=== PATIENT | male | born 1950 | race Caucasian/White ===

== ENCOUNTER 2021-05-22 07:17 | Outpatient (CLI) | payer MEDICARE, SELFPAY ==
--- NOTE | ~2021-05-22 | NM_ITS ---
EXAMINATION: NM bone scan whole body DATE: 05/22/2021 10:39 INDICATION: Left groin pain post open reduction internal fixation of a left hip fracture. TECHNIQUE: 25.8 mCi Tc-99m HDP was administered intravenously. Delayed whole-body scintigrams were o btained. COMPARISON: Bone scan dated 05/22/2019 no more recent relevant imaging at this institution. FINDINGS: Photopenic defects associated with bilateral total knee arthroplasties and a right total hip arthropl asty. More subtle photopenic defect associated with an intramedullary manpreet and interlocking femoral ne ck screw fixation at the proximal left femur. No associated abnormal bone uptake to suggest fracture or loosening. Lumbar levoscoliosis. Unchanged foci of increased uptake along the lumbar and lower tho racic spine most likely degenerative in etiology. At T11 and in the mid lumbar spine the activity ext ends horizontally across the vertebral body and could not exclude compression fractures. Given the pe rsistence over 2 years this is more likely related to degenerative disc disease. Additional likely de generative joint centered uptake at the base of the left thumb and bilateral shoulders, elbows, risks , ankles and mid feet. IMPRESSION: 1. No abnormal activity at the left hip to suggest fracture or other acute osseous abnormality. 2. Scattered mild joint centered uptake as well as unchanged uptake in the lumbar and lower thoracic spine most likely degenerative in etiology. Reviewed, dictated and finalized at location [facility]. IMPRESSION: 1. No abnormal activity at the left hip to suggest fracture or other acute osse ous abnormality. 2. Scattered mild joint centered uptake as well as unchanged uptake in the lumb ar and lower thoracic spine most likely degenerative in etiology.
== END 2021-05-22 07:18 | disposition home or self-care (01) ==
PROVIDERS: PCP Family Medicine; Visit Provider Orthopaedic Surgery
DX: M25.552 Pain in left hip (principal)
CPT/HCPCS: 78306; A9561

== ENCOUNTER 2021-05-30 12:26 | Outpatient (CLI) | payer MEDICARE, SELFPAY ==
--- NOTE | ~2021-05-30 | XR_ITS ---
EXAMINATION: XR lg joint inject/asp w image DATE: 05/30/2021 13:09 INDICATION: Left hip osteoarthritis with pain TECHNIQUE: A time-out was performed to verify the patient's name, date of , and procedure to b e performed. The procedure including the risks, benefits, and alternatives was discussed with the pat ient. Risks discussed included bleeding and infection. The patient understood the risks and agreed to proceed. The skin overlying the left hip joint was prepped and draped in usual sterile fashion. An esthetic was administered with 1% lidocaine subcutaneously. A 22 G needle was advanced under fluoros copic guidance into the joint. Injection of 1 mL of Omnipaque 240 confirmed intra-articular position of the needle. Subsequently, injectate consisting of 4 mL of a 3:1 mixture of 1% lidocaine: 80 mg/m L Depo-Medrol for a total dosage of 80 mg Depo-Medrol was instilled. Washout of contrast was seen con firming intra-articular administration. The needle was removed and the entry site was cleaned and fang ssed. There were no immediate complications. Fluoroscopy exposure time was 0.1 minutes. The total nu mber of images was 1. FINDINGS: Real-time fluoroscopy demonstrates the needle in the left hip joint. Patient's pain prior t o procedure:04/22. Patient's pain following the procedure: 11/23. IMPRESSION: 1. Successful left hip joint injection of local anesthetic and steroid with decrease in the patient's presenting pain. Reviewed, dictated and finalized at location [facility]. IMPRESSION: 1. Successful left hip joint injection of local anesthetic and steroid with dec rease in the patient's presenting pain.
== END 2021-05-30 12:27 | disposition home or self-care (01) ==
PROVIDERS: PCP Family Medicine; Visit Provider Orthopaedic Surgery
DX: M16.12 Unilateral primary osteoarthritis, left hip (principal)
CPT/HCPCS: 20610; 77002; J1040; Q9966

== ENCOUNTER 2021-06-06 02:04 | Day surgery (SDC) | payer MEDICARE, SELFPAY ==
[2021-05-26 14:50] VITALS: BMI 32.8
--- NOTE | 2021-06-05 13:31 | WPDANESEPPF ---
Anes - Initial Pre Proc Eval Procedure: Operation Date: 06/06/21 12:00 Proposed Procedures p Colonoscopy - Andrea Jones MD Date/Time: 06/05/21 13:31 Surgeon: Andrea Jones MD Pre Op Diagnosis: rectal bleed Patient Data Age: 70 Gender: M Height: 1.6 m Weight: 84.09 kg Allergies Allergy/AdvReac Type Severity Reaction Status Date / Time Sulfa (Sulfonamide Allergy Unknown Unknown Verified 06/06/21 11:13 Antibiotics) Home Medications Medication Instructions Recorded Confirmed Type calcium carbonate 600 mg calcium 600 mg PO BID 05/17/20 06/06/21 History (1,500 mg) tablet cholecalciferol (vitamin D3) 25 25 mcg PO BID cap 05/17/20 05/23/21 History mcg (1,000 unit) capsule topiramate 100 mg tablet 100 mg PO BID 05/17/20 06/06/21 History celecoxib 100 mg capsule 100 mg PO BID #180 cap 10/10/20 06/06/21 Rx gabapentin 300 mg capsule See Rx Instructions .ROUTE 04/28/21 06/06/21 Rx .COMPLEX #180 cap hydrocortisone 2.5 % topical cream 1 applic RECTAL DAILY PRN #30 g 05/23/21 06/06/21 Rx with perineal applicator Patient hx anesthesia problems: none Family hx anesthesia problems: none PMFSH Past Medical History Medical History (Updated 06/06/21 @ 11:22 by Andrea Jones MD) Arthritis BRBPR (bright red blood per rectum) History of seizure disorder Hyperlipidemia Loose stools Metal bone fixation hardware in place NATHANIEL on CPAP Osteoporosis Restless legs Surgical History Surgical History History of appendectomy History of back surgery History of bilateral knee replacement History of cholecystectomy History of hernia repair History of tonsillectomy History of total right hip replacement Family History Family History Mother Osteoporosis Social History Social History Second hand tobacco smoke exposure: No Alcohol intake: never Substance use: never Substance use type: does not use Living arrangements: with family Gender identity (if verbalized by the patient): Male Spiritual care concerns: No Agree to blood products: Yes Anes - Eval Final PreProcedure Day of Procedure 06/05/21 13:31 Patient weight: obese Heart: regular rate and rhythm Lungs: clear to auscultation and normal air movement Airway: Mallampati scale class II Neurological: alert and oriented Last oral intake: >/= 8 hours ASA classification: III Emergent: no Anesthetic plan: proceed Anesthesia type and monitoring: general GIVS and standard monitoring Informed Consent: The patient's anesthetic plan and its attendant risks and benefits were discussed with the patient/family/POA. Questions were solicited and answers provided to the satisfaction of the patient/family/POA.
[2021-06-06 11:14] VITALS: BP 140/81; PULSE 71; RESP 20; TEMP 36.4; O2SAT 100
[2021-06-06] MEDS: LACTATED RINGERS 1,000 ML 150 ML IV CONT (11:20)
--- NOTE | 2021-06-06 11:21 | WPDGICN ---
Assessment and Plan Assessment and plan (1) Family history of colon cancer in father: Code(s): Z80.0 - Family history of malignant neoplasm of digestive organs Status: Acute Assessment and Plan: Patient's father had colon cancer. For this reason screening colonoscopy is advised now on a 5 year intervals. (2) BRBPR (bright red blood per rectum): Code(s): K62.5 - Hemorrhage of anus and rectum Status: Acute Assessment and Plan: Patient has had occasional loose stools associated with bright red blood per rectum differential diagnosis is broad but includes hemorrhoids and polyps. Plan is for surveillance colonoscopy at this time. High-fiber diet is otherwise advised. GI Consult Note Consult date/time: 06/06/21 11:21 HPI: Aly Cervantes is a 70 year old male Presents for screening colonoscopy. Patient's father has a history of colon cancer. Patient reports that he has had a intermittently had bright red blood per rectum. This prompted him to seek colonoscopy at this time. He denies any abdominal pain. Bleeding occurs intermittently. He does occasionally have loose stools associated with this. Review of Systems Review of Systems: All systems reviewed & are unremarkable except as noted in HPI and below PMFSH Past Medical History Medical History (Updated 06/06/21 @ 11:22 by Andrea Jones MD) Arthritis BRBPR (bright red blood per rectum) History of seizure disorder Hyperlipidemia Loose stools Metal bone fixation hardware in place NATHANIEL on CPAP Osteoporosis Restless legs Surgical History Surgical History History of appendectomy History of back surgery History of bilateral knee replacement History of cholecystectomy History of hernia repair History of tonsillectomy History of total right hip replacement Family History Family History Mother Osteoporosis Social History Social History Second hand tobacco smoke exposure: No Alcohol intake: never Substance use: never Substance use type: does not use Living arrangements: with family Gender identity (if verbalized by the patient): Male Spiritual care concerns: No Agree to blood products: Yes Meds Home Medications and Allergies Home Medications Medication Instructions Recorded Confirmed Type calcium carbonate 600 mg calcium 600 mg PO BID 05/17/20 06/06/21 History (1,500 mg) tablet cholecalciferol (vitamin D3) 25 25 mcg PO BID cap 05/17/20 05/23/21 History mcg (1,000 unit) capsule topiramate 100 mg tablet 100 mg PO BID 05/17/20 06/06/21 History celecoxib 100 mg capsule 100 mg PO BID #180 cap 10/10/20 06/06/21 Rx gabapentin 300 mg capsule See Rx Instructions .ROUTE 04/28/21 06/06/21 Rx .COMPLEX #180 cap hydrocortisone 2.5 % topical cream 1 applic RECTAL DAILY PRN #30 g 05/23/21 06/06/21 Rx with perineal applicator Allergies Allergy/AdvReac Type Severity Reaction Status Date / Time Sulfa (Sulfonamide Allergy Unknown Unknown Verified 06/06/21 11:13 Antibiotics) Vital Signs Vital Signs - 24 hr 06/06/21 11:14 Temperature 97.6 F Pulse Rate 71 Respiratory Rate 20 Blood Pressure 140/81 Pulse Oximetry 100 Exam Narrative: Physical exam reveals patient be alert. Vital signs stable. HEENT exam is unremarkable. Lungs are clear to auscultation and percussion. Heart is without murmur or extra sounds. Abdominal exam bowel sounds are present soft nontender with no organomegaly. Digital external rectal exam is normal.
[2021-06-06 12:42] VITALS: BP 78/49; PULSE 61; RESP 16; O2SAT 97
[2021-06-06 12:52] VITALS: BP 92/53; PULSE 56; RESP 28; O2SAT 98
[2021-06-06 13:02] VITALS: BP 133/84; PULSE 54; RESP 18; O2SAT 100
== END 2021-06-06 13:21 | disposition home or self-care (01) ==
PROVIDERS: PCP Family Medicine; Visit Provider Internal Medicine Gastroenterology
PROC: 0DJD8ZZ Inspection of Lower Intestinal Tract, Via Natural or Artificial Opening Endoscopic (ICD-10-PCS; CPT 45378; principal; 2021-06-06 12:00)
DX: K62.5 Hemorrhage of anus and rectum (principal); Z80.0 Family history of malignant neoplasm of digestive organs; K64.8 Other hemorrhoids; K57.30 Diverticulosis of large intestine without perforation or abscess without bleeding; M19.90 Unspecified osteoarthritis, unspecified site; E78.5 Hyperlipidemia, unspecified; G47.33 Obstructive sleep apnea (adult) (pediatric); M81.0 Age-related osteoporosis without current pathological fracture; E66.9 Obesity, unspecified; Z68.31 Body mass index [BMI] 31.0-31.9, adult
CPT/HCPCS: 45378; J2001; J2704; J7120

== ENCOUNTER 2021-11-30 09:26 | Outpatient (CLI) | payer MEDICARE, SELFPAY ==
--- NOTE | ~2021-11-30 | XR_ITS ---
XR abdomen obstructive series DATE: 11/30/2021 09:44 INDICATION: Abdominal pain, burning in abdomen TECHNIQUE: Supine and upright AP views COMPARISON: 12/17/2012 CT abdomen pelvis FINDINGS: Surgical clips, right upper quadrant, consistent with cholecystectomy. There is a prominent of fecal material in the colon. No bowel obstruction or intraperitoneal free air is detected. Calcifications overlie the kidneys suggesting bilateral nephrolithiasis. Status post right hip arthroplasty. Compression screw and manpreet of proximal left femur. There is postoperative change from lumbar laminectomy. Status post vertebroplasty at T12 and L5. Ther e is scoliosis and severe degenerative disc disease of the lumbar spine and fusion at the L3-4 inters pace. IMPRESSION: Status post cholecystectomy Probable bilateral nephrolithiasis Prominent amount fecal material in the colon; no bowel obstruction or free air Scoliosis and severe degenerative disc disease of the lumbar spine Vertebroplasty T12 and L5 Right hip arthroplasty Compression screw and manpreet of proximal left femur Reviewed, dictated and finalized at [facility]. Reviewed, dictated and finalized at location [facility]. 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
== END 2021-11-30 09:27 | disposition home or self-care (01) ==
LOC: ANHIMG 09:32
PROVIDERS: PCP Family Medicine; Visit Provider Family Medicine
DX: R10.9 Unspecified abdominal pain (principal); Z90.49 Acquired absence of other specified parts of digestive tract; M51.36 Other intervertebral disc degeneration, lumbar region; M41.86 Other forms of scoliosis, lumbar region; Z98.890 Other specified postprocedural states; Z96.641 Presence of right artificial hip joint
CPT/HCPCS: 74019

== ENCOUNTER 2022-04-10 10:12 | Emergency (ER) | payer MEDICARE, SELFPAY ==
--- NOTE | ~2022-04-10 | XR_ITS ---
XR femur LT min 2V DATE: 04/10/2022 11:04 INDICATION: Pain above-knee. No recent injury. TECHNIQUE: AP and lateral views of left femur COMPARISON: 08/27/2015 left knee 07/26/2010 left hip FINDINGS: Compression screw and intramedullary manpreet of the left femur for old intertrochanteric hip fr acture. There is chronic fracture of a distal femoral manpreet through screw. Osteopenia. There is moderate osteoarthritis at the left hip joint. No recent fracture, dislocation, periosteal reaction or bone destruction of the left femur. Status post left total knee arthroplasty with patellar resurfacing. Status post right total hip arthroplasty. IMPRESSION: No recent fracture or dislocation Status post ORIF left intertrochanteric hip fracture Status post left total knee arthroplasty Status post right total hip arthroplasty Reviewed, dictated and finalized at location [facility].
--- NOTE | ~2022-04-10 | XR_ITS ---
XR knee LT 2V DATE: 04/10/2022 11:04 INDICATION: Pain above-knee TECHNIQUE: AP and lateral views of left knee COMPARISON: 08/27/2015 left knee FINDINGS: An intramedullary manpreet of the femoral shaft is again noted, with chronically fractured dista l transverse through screw. Status post left total knee arthroplasty with patellar resurfacing. No fracture or dislocation or joint effusion. There is osteopenia. No recent periosteal reaction or evidence of bone destruction. IMPRESSION: Intramedullary manpreet with femoral shaft Status post left total knee arthroplasty Osteopenia No fracture or dislocation or joint effusion Reviewed, dictated and finalized at location [facility].
[2022-04-10 10:18] VITALS: BP 141/77; PULSE 73; RESP 16; TEMP 36.7; O2SAT 100
--- NOTE | 2022-04-10 10:47 | ED.LOWEXIN ---
HPI - Extremity Injury (Lower) General Chief Complaint: Extremity Injury, Lower Stated Complaint: needs xray Time Seen by Provider: 04/10/22 10:34 History of Present Illness HPI Narrative: Patient is a 71-year-old male with a history of numerous arthroplasties here for evaluation of left hip and left knee pain over the past month. Patient describes the pain as an aching pain over his left lateral hip and also in his left groin. The pain is there all the time but is worse when he is up and moving around. Reports only transient relief with celebrex. He does have a history of trochanteric bursitis for which he follows with Dr. Palacios, states his pain feels very similar. He has a follow-up appointment with Dr. Palacios next week and he tells me he was told to come to the ED for XR of the hip and knee. Related Data Home Medications Medication Instructions Recorded Confirmed calcium carbonate 600 mg calcium 600 mg PO BID 05/17/20 11/29/21 (1,500 mg) tablet (Calcium) cholecalciferol (vitamin D3) 25 25 mcg PO BID 05/17/20 11/29/21 mcg (1,000 unit) capsule topiramate 100 mg tablet 100 mg PO BID 05/17/20 11/29/21 Allergies Allergy/AdvReac Type Severity Reaction Status Date / Time Sulfa (Sulfonamide Allergy Unknown Unknown Verified 04/10/22 10:22 Antibiotics) Review of Systems Review of Systems: Gen: Denies fevers or chills Eyes: Denies eye pain or visual change ENT: Denies congestion Respiratory: Denies shortness of breath or cough CV: Denies chest pain or palpitations GI: Denies abdominal pain nausea, emesis or diarrhea denies burning, urgency, frequency or hematuria Musculoskeletal: Reports right hip and knee pain. Reports chronic back pain. Denies muscle pain Neuro: Denies numbness, tingling, weakness or focal weakness Skin: Denies rash Except as documented, all other systems reviewed and negative PMFSH Past Medical History Medical History Arthritis BRBPR (bright red blood per rectum) Encounter for immunization History of seizure disorder Hyperlipidemia Loose stools Metal bone fixation hardware in place NATHANIEL on CPAP Osteoporosis Restless legs Surgical History Surgical History History of appendectomy History of back surgery History of bilateral knee replacement History of brain surgery History of cholecystectomy History of hernia repair History of tonsillectomy History of total right hip replacement Family History Family History Mother Osteoporosis Social History Social History Second hand tobacco smoke exposure: No Alcohol intake: never Substance use: never Substance use type: does not use Gender identity (if verbalized by the patient): Male Sexual Orientation (if Verbalized by the Patient): Straight or Heterosexual Spiritual care concerns: No Agree to blood products: Yes Exam Narrative: APPEARANCE: Well appearing, no pain in distress, well-nourished. Head: Normocephalic and atraumatic. EYES: PERRLA/EOMI, conjunctivae clear NOSE: No nasal drainage EARS: External ear normal in appearance THROAT: Oropharynx is clear. Mucous membranes are moist. NECK: Supple. No adenopathy, no masses. RESPIRATORY: Airway patent, respirations nonlabored. Clear to auscultation bilaterally, no rales, rhonchi, wheezing. CARDIOVASCULAR: 2+ DP/PT pulses bilaterally. Regular rate and rhythm without murmurs, rubs, or gallops. ABDOMINAL: Normoactive bowel sounds. Soft, nontender, nondistended. No rebound tenderness or guarding. MUSCULOSKELETAL: No bony tenderness to palpation along left hip bone or left patella. No tenderness over left groin. No pain with passive range of motion, notes pain in hip with active flexion of hip. Sensation intact over entire RLE. Anterior and pos
[2022-04-10] MEDS: ACETAMINOPHEN 500 MG TABLET 1000 MG PO (12:05)
[2022-04-10 12:36] VITALS: BP 129/88; PULSE 61; RESP 16; O2SAT 100
== END 2022-04-10 12:38 | disposition home or self-care (01) ==
PROVIDERS: Emergency Provider Emergency Medicine; PCP Family Medicine
DX: M71.9 Bursopathy, unspecified (principal); G40.909 Epilepsy, unspecified, not intractable, without status epilepticus; E78.5 Hyperlipidemia, unspecified; G47.33 Obstructive sleep apnea (adult) (pediatric); M81.0 Age-related osteoporosis without current pathological fracture; M19.90 Unspecified osteoarthritis, unspecified site; G25.81 Restless legs syndrome; Z96.653 Presence of artificial knee joint, bilateral; Z96.641 Presence of right artificial hip joint; M85.88 Other specified disorders of bone density and structure, other site
CPT/HCPCS: 73552; 73560; 99284; A9270

== ENCOUNTER 2022-04-14 14:12 | Emergency (ER) | payer MEDICARE, SELFPAY ==
[2022-04-14 14:21] VITALS: BP 177/97; PULSE 78; RESP 18; TEMP 36.9; O2SAT 99
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
[2022-04-14 14:42] LABS: Basophils Percent Auto 0.4 % (0.2-1.2); Eosinophils Percent Auto 0.7 % (0-4.4); Hematocrit 43.3 % (42.0-52.0); Hemoglobin 14.3 g/dL (14.0-18.0); Immature Granulocyte Absolute 0.01 K/mm3 (0.00-0.031); Immature Granulocyte Percent A 0.2 % (0-0.5); Lymphocytes Absolute Auto 0.97 K/mm3 (0.9-3.2); Lymphocytes Percent Auto 21.4 % (18.3-44.2); Mean Corpuscular Hemoglobin 31.8 pg (26-34); Mean Corpuscular Volume 96.2 fl (80-100); Mean Platelet Volume 9.3 fl (7.4-10.4); Monocytes Absolute Auto 0.2 K/mm3 (0.1-0.6); Monocytes Percent Auto 4.6 % (2.6-8.5); Neutrophils Absolute Auto 3.3 K/mm3 (1.3-6.7); Neutrophils Percent Auto 72.7 % (45.5-73.1); Platelet Count Result 179 k/mm3 (150-375); White Blood Count 4.5 K/mm3 (4.5-10.0)
[2022-04-14 14:50] LABS: Ethanol < 10 mg/dL (<10)
[2022-04-14 14:51] LABS: Acetaminophen < 10 ug/mL (10-30); Salicylate < 1.0 mg/dL (2-20)
[2022-04-14 14:54] LABS: Alanine Aminotransferase 21 U/L (6-50); Albumin Level 4.8 g/dL (3.5-5.1); Alkaline Phosphatase 56 U/L (38-126); Anion Gap 10 mmol/L (8-16); Aspartate Amino Transferase 20 U/L (17-59); Bilirubin,Total 0.8 mg/dL (0.2-1.3); Blood Urea Nitrogen 14 mg/dL (9-20); Calcium 9.5 mg/dL (8.4-10.2); Carbon Dioxide 22 mmol/L (22-30); Chloride 110 mmol/L (98-107); Estimated CRCL calculation 54 ml/min; Estimated Glomerular Filt Rate > 60; Glucose 95 mg/dL (65-110); Potassium 3.5 mmol/L (3.4-5.0); Sodium 142 mmol/L (137-145)
[2022-04-14 14:57] LABS: Appearance Urine Clear (Clear); Bilirubin Urine Negative (Negative); Blood Urine Negative (Negative); Color Urine Yellow (Yellow); Glucose Urine UA Negative (Negative); Ketones Urine Negative (Negative); Leukocyte Esterase Ur Negative LEU/UL (Negative); Nitrate Urine Negative (Negative); Protein Urine Negative (Negative); Specific Grav Ur 1.015 (1.001-1.035); Urobilinogen Urine 0.2 mg/dL (<2.0); pH Urine 7.5 (5.0-9.0)
[2022-04-14 15:11] LABS: Amphetamine Screen Urine Negative (Negative); Barbiturate Screen Urine Negative (Negative); Benzodiazepines Screen Urine Negative (Negative); Cannabinoid Screen Urine Negative (Negative); Cocaine Screen Urine Negative (Negative); Methadone Screen Urine Negative (Negative); Opiate Screen Urine Negative (Negative); Phencyclidine Screen Urine Negative (Negative)
[2022-04-14 15:25] LABS: Mucus Urine Rare /lpf; RBC Urine 0-2 /hpf (0-2); Squamous Epithelial Cell Urine Rare /hpf (Few); WBC Urine 0-3 /hpf
[2022-04-14 15:26] LABS: Add Urine Microscopic? NO
[2022-04-14] MEDS: HYDROcodone/acetaminophen (*CRX) 10-325 MG TABLET 1 TAB PO (15:28)
[2022-04-14] MEDS: diazePAM (*CRX) 5 MG TABLET PO (15:28)
[2022-04-14 15:32] LABS: SARS-CoV-2 RNA PCR Negative
[2022-04-14] MEDS: KETOROLAC (*BKC) 60 MG/2 ML VIAL IM (16:59)
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
--- NOTE | 2022-04-14 19:50 | PC.NURSE ---
Pts family took pts belongings including clothes, shoes, medications, and wallet.
[2022-04-14 22:41] VITALS: BP 132/78; PULSE 81; RESP 16; TEMP 36.6; O2SAT 97
== END 2022-04-14 22:41 | disposition home or self-care (01) ==
PROVIDERS: Emergency Provider Emergency Medicine; PCP Family Medicine
DX: R45.851 Suicidal ideations (principal); M54.50 Low back pain, unspecified; G89.29 Other chronic pain; Z20.822 Contact with and (suspected) exposure to COVID-19; G40.909 Epilepsy, unspecified, not intractable, without status epilepticus; E78.5 Hyperlipidemia, unspecified; M81.0 Age-related osteoporosis without current pathological fracture; G47.33 Obstructive sleep apnea (adult) (pediatric); G25.81 Restless legs syndrome; M19.90 Unspecified osteoarthritis, unspecified site; Z96.653 Presence of artificial knee joint, bilateral; Z96.641 Presence of right artificial hip joint
CPT/HCPCS: 36415; 80053; 80307; 81003; 84443; 85025; 96372; 99284; A9270; C9803; J1885; U0003; U0005

== ENCOUNTER 2022-10-04 16:47 | Observation (INO) | payer MEDICARE, SELFPAY ==
--- NOTE | ~2022-10-04 | CT_ITS ---
EXAMINATION: CT abdomen pelvis w con DATE: 10/04/2022 18:07 INDICATION: Abdominal pain, diarrhea with blood for one week TECHNIQUE: Computed tomography (CT) of the abdomen and pelvis was performed with 100 CC Omnipaque 350 intravenous contrast. Automated exposure control and iterative reconstruction technique were employe d. Exam dose: 698.01 mGy-cm total exam DLP. COMPARISON: 12/17/2012 CT abdomen pelvis FINDINGS: Bilateral lower lobe dependent atelectasis. Heart size is within normal limits. Coronary artery calcification. Trace pericardial fluid. No pleura l effusion. Status post cholecystectomy. No hepatic, splenic, pancreatic, adrenal space-occupying mass lesion. Occasional bilateral small renal cysts. Bilateral nonobstructive nephrolithiasis. No ureteral calculus or hydroureteronephrosis. The urinary bladder is unremarkable. There is prostate enlargement. Normal caliber and some tortuosity of the abdominal aorta. No intraperitoneal or retroperitoneal or pelvic mass lesion or adenopathy or ascites. Diffuse prominent thickening of the wall of the rectum and colon, particularly the sigmoid and descen ding colon. Diffusion diagnosis includes inflammatory bowel disease such as ulcerative colitis versus infectious or unlikely ischemic colitis. The celiac, superior mesenteric and inferior mesenteric art eries appear widely patent, without atherosclerotic calcification. Small fat-containing umbilical hernia. Extensive degenerative changes of the thoracic and lumbar spine with multiple compression fracture de formities including T11, T12, L1, L2, L5, with vertebroplasty T12 and L5. There is fusion at the L3 and L4 vertebral bodies. Multilevel degenerative disc disease of the lumbar spine. Status post right total hip arthroplasty. Compression screw and nail in proximal left femur. IMPRESSION: Colitis, involving particularly the sigmoid and descending colon; diffusion diagnosis in cludes primarily inflammatory or infectious colitis. Bilateral nonobstructive nephrolithiasis Occasional bilateral small renal cysts Status post cholecystectomy Multiple compression fractures of thoracic and lumbar spine, status post vertebroplasty at T12 and L5 Right total hip replacement, postoperative change of proximal left femur Reviewed, dictated and finalized at [facility] Reviewed, dictated and finalized at [facility] [employer] IMPRESSION: Colitis, involving particularly the sigmoid and descending colon; diffusion diagnosis includes primarily inflammatory or infectious colitis. Bilateral nonobstructive nephrolithiasis Occasional bilateral small renal cysts Status post cholecystectomy Multiple compression fractures of thoracic and lumbar spine, status post verteb roplasty at T12 and L5 Right total hip replacement, postoperative change of proximal left femur
[2022-10-04 17:08] VITALS: BP 136/85; RESP 18; O2SAT 100
[2022-10-04 17:09] VITALS: BP 136/85; PULSE 99; RESP 18; TEMP 37.5; O2SAT 97
[2022-10-04] MEDS: SODIUM CHLORIDE 0.9% IV 1,000 ML 999 ML IV CONT (17:22)
[2022-10-04 17:30] LABS: Hematocrit 36.8 % (42.0-52.0); Hemoglobin 12.1 g/dL (14.0-18.0); Mean Corpuscular HGB Conc 32.9 g/dl (32-36); Mean Corpuscular Hemoglobin 30.5 pg (26-34); Mean Corpuscular Volume 92.7 fl (80-100); Mean Platelet Volume 8.6 fl (7.4-10.4); Platelet Count Result 225 k/mm3 (150-375); Red Blood Count 3.97 M/mm3 (4.6-6.20); Red Cell Distribution Width 12.8 % (11.5-14.5); White Blood Count 4.8 K/mm3 (4.5-10.0)
[2022-10-04 17:40] LABS: Lactic Acid Reflex 1.4 mmol/L (0.7-2.0)
[2022-10-04 17:44] LABS: Alanine Aminotransferase 24 U/L (6-50); Albumin Level 3.4 g/dL (3.5-5.1); Alkaline Phosphatase 68 U/L (38-126); Anion Gap 6 mmol/L (8-16); Aspartate Amino Transferase 24 U/L (17-59); Bilirubin,Total 0.6 mg/dL (0.2-1.3); Blood Urea Nitrogen 18 mg/dL (9-20); Calcium 9.1 mg/dL (8.4-10.2); Carbon Dioxide 24 mmol/L (22-30); Chloride 100 mmol/L (98-107); Estimated CRCL calculation 73 ml/min; Estimated Glomerular Filt Rate > 60; Glucose 121 mg/dL (65-110); Lipase 19 U/L (23-300); Potassium 3.8 mmol/L (3.4-5.0); Sodium 130 mmol/L (137-145)
[2022-10-04 17:45] LABS: INR 1.2; Prothrombin Time 14.8 Seconds (11.1-14.7)
[2022-10-04 17:46] LABS: Partial Thromboplastin Time 27.6 SECONDS (22.3-36.8)
[2022-10-04 17:59] LABS: Neutrophils Percent Manual 41 % (46-73); Total Cells Counted 100
[2022-10-04 18:00] VITALS: BP 136/85; PULSE 98; RESP 18; O2SAT 98
[2022-10-04 18:00] LABS: Band Neutrophils Percent 20 % (0-6); Eosinophils Absolute Manual 0.04 K/mm3 (0.02-0.5); Eosinophils Percent Manual 1 % (0-4); Lymphocytes Absolute Manual 0.67 K/mm3 (1.1-4.5); Lymphocytes Percent Manual 14 % (18-44); Metamyelocytes Percent 2 %; Monocytes Absolute Manual 1.05 K/mm3 (0.1-0.90); Monocytes Percent Manual 22 % (3-9); Neutrophils Absolute Manual 2.92 K/mm3 (1.3-6.7)
[2022-10-04 18:01] LABS: Ovalocytes 1+ (NORMAL); Platelet Estimate Adequate (Adequate); Schistocytes None Seen (NORMAL)
--- NOTE | 2022-10-04 19:55 | ED.NAVMDI ---
HPI - Nausea/Vomiting/Diarrhea General Chief complaint: Nausea/Vomiting/Diarrhea Stated complaint: RECTAL BLEED Source: RN notes reviewed History of Present Illness HPI Narrative: Patient presents emergency department from home for diarrhea. Patient states he has been having diarrhea for the past 1 week. He states that he is having bowel movements approximately every 2 hours states is associated with blood in his stool that is dark red in color. He states he does have lower abdominal pain with the symptoms described as cramping in nature. He denies any fevers or chills he denies any nausea or vomiting. States he is not on any blood thinners. He denies any recent antibiotic use or foreign travel Related Data Home Medications Medication Instructions Recorded Confirmed calcium carbonate 600 mg calcium 600 mg PO BID 05/17/20 06/07/22 (1,500 mg) tablet (Calcium) cholecalciferol (vitamin D3) 25 25 mcg PO BID 05/17/20 06/07/22 mcg (1,000 unit) capsule topiramate 100 mg tablet 100 mg PO BID 05/17/20 06/07/22 Allergies Allergy/AdvReac Type Severity Reaction Status Date / Time Sulfa (Sulfonamide Allergy Unknown Unknown Verified 10/04/22 17:10 Antibiotics) Review of Systems Review of Systems: Gen.: Denies fevers or chills ENT: Denies congestion Respiratory: Denies shortness of breath or cough CV: Denies chest pain or palpitations GI: See HPI denies burning, urgency, frequency or hematuria Musculoskeletal: Denies back pain or muscle pain Neuro: Denies numbness, tingling, weakness or focal weakness Skin: Denies rash Except as documented, all other systems reviewed and negative [facility] Past Medical History Medical History Arthritis BRBPR (bright red blood per rectum) Encounter for immunization History of seizure disorder Hyperlipidemia Loose stools Metal bone fixation hardware in place NATHANIEL on CPAP Osteoporosis Restless legs Surgical History Surgical History History of appendectomy History of back surgery History of bilateral knee replacement History of brain surgery History of cholecystectomy History of hernia repair History of tonsillectomy History of total right hip replacement Family History Family History Mother Osteoporosis Social History Social History Smoking status: Never smoker Second hand tobacco smoke exposure: No Alcohol intake: never Substance use: never Substance use type: does not use Gender identity (if verbalized by the patient): Male Sexual Orientation (if Verbalized by the Patient): Straight or Heterosexual Spiritual care concerns: No Agree to blood products: Yes Exam Narrative: APPEARANCE: No acute distress, nontoxic, resting in bed HEENT: Normocephalic, atraumatic, OMM RESPIRATORY: No respiratory distress, clear to auscultation bilaterally with no rhonchi wheezing or rales CARDIOVASCULAR: RRR s murmur ABDOMINAL: Soft nondistended tender to palpation right lower quadrant and left lower quadrant no tenderness in right upper quadrant left upper quadrant no rebound or guarding Rectal: No fissures large hemorrhoid present reddish-brown stool that is Hemoccult positive MUSCULOSKELETAl: Moves all extremities. No clubbing, cyanosis or edema. NEURO: Awake and alert. Following commands, speech normal, no focal deficits SKIN:: Warm, dry. Normal Color PSYCHIATRIC: Normal affect/mood Course Course Emergency Course: discussed with Dr. Estrada presentation work-up agrees with consult recommends patient started on Zosyn Discussed with Dr. Jarrell agrees with admission Discussed with patient and family results of workup and diagnosis. Discussed need for admission. Patient and family understand and agree to current treatment plan Vi
[2022-10-04 20:51] LABS: Influenza A QL RT-PCR Negative (Negative); Influenza B QL RT-PCR Negative (Negative); SARS-CoV-2 RNA PCR Negative
--- NOTE | 2022-10-04 21:26 | PM.IMHP ---
H&P: HPI History of Present Illness Date/Time: 10/04/22 21:26 Chief Complaint: Diarrhea Narrative: 71-year-old male with past medical history of osteoporosis, multiple compression fractures, spinal stenosis and seizure disorder who presented to the ER with diarrhea. The patient reported that he started having diarrhea approximately 1 week ago. The initially diarrhea was brown and watery but as time has progressed she has noticed some blood in the diarrhea. He is frequently incontinent of stools because he can not get up and move around himself due to his spinal surgery in June. He is on Celebrex at home but not on any blood thinners. He has not had any recent antibiotic therapy but has been in out of various rehab institutions. He reports he has not been back home since his spinal surgery and is currently in [facility] rehab. He reports some somewhat point tenderness in his right lower abdomen. He is having bowel movements approximately every 2 hours regardless of whether he has eaten anything or not. He has been having chills for the last several days but denies having any recorded fevers. He denies any rectal pain or wounds. He had stool studies obtained at the senior living with cultures that are pending. He denies any associated nausea or vomiting but has had some decreased appetite. On exam the patient did seem to have a palpable bladder. He denies any sensation of incomplete bladder emptying and had recent urodynamic studies done that were reportedly normal. He denies any dysuria or hematuria. He denies any known ill contacts. He does report a sensation of globus when he swallows and this correlates to his palpable lymph noted his right anterior cervical chain that is tender to palpation. He denies any oral ulcers or dental caries. He reports that the sensation has been ongoing for a month or so. He had his colonoscopy in May [address] Jones. The patient reports that he has had chronic lower extremity swelling for the last couple of months that is worse after he has been sitting up in his wheelchair all day. Usually resolves or improves once he goes to bed. For the most part his legs hanging down while he is up in the wheelchair. He denies any orthopnea, paroxysmal nocturnal dyspnea or palpitations. He denies history of CHF. The patient received Imodium at the senior living which did not seem to help with frequency of his stools. Hemoglobin at the senior living was 11.5 and white count was 3.7 10/03/2022. He reports that he can not feel his feet and move his feet and ankles but is not strong enough to lift his legs from the bed. He does have a history of seizure disorder but reports that he has not had a seizure since March 23, 2014 when he had brain surgery to resect an area of scar tissue. Review of Systems Review of Systems: 12 systems were reviewed with pertinent positives and negatives per HPI. Except as documented in the HPI, all other systems were reviewed and are negative. [facility] Past Medical History Medical History (Updated 10/04/22 @ 21:38 by Annette Jarrell DO) Arthritis ED (erectile dysfunction) of organic origin RAYNA (generalized anxiety disorder) History of seizure disorder Following meningitis as a child Hyperlipidemia Metal bone fixation hardware in place NATHANIEL on CPAP Osteoporosis Restless legs Surgical History Surgical History (Updated 10/04/22 @ 21:36 by Annette Jarrell DO) History of appendectomy History of back surgery History of bilateral knee replacement (~2000) History of brain surgery History of cholecystectomy (~1987) History of hernia repair History of repair of congenital atrial septal defect (ASD) History of sinus surgery (~1994) History of tonsillectomy History of total right hip replacement S/P patent foramen ovale closure Status post lumbar spine surgery for decompression of spinal cord Status post open reduction with internal fixation of fracture (201
--- NOTE | 2022-10-05 00:01 | ADMGEN ---
This patient, Aly Cervantes, was admitted to Medical Room 250-01. Patient/family oriented to hospital policies and general routines including ID bracelet, bed and alarms, visiting hours, pain management, procedures, bathroom and other care routines, personal items, smoking policy, room service/diet, and visiting hours. Information on how to activate the Rapid Response Team has been discussed. Patient/Family are encouraged to report perceived risks to care and to ask questions if they do not understand what they are told or what they should do.
[2022-10-05 00:03] VITALS: BP 120/70; PULSE 90; RESP 22; TEMP 36.4; O2SAT 100; BMI 31.6
[2022-10-05] MEDS: SODIUM CHLORIDE 0.9% IV 1,000 ML 100 ML IV CONT ×3 (00:14→21:59)
[2022-10-05 00:40] LABS: Hematocrit 35.6 % (42.0-52.0); Hemoglobin 11.6 g/dL (14.0-18.0)
[2022-10-05] MEDS: oxyCODONE HCL (*CRX) 5 MG TAB IR 10 MG PO ×3 (01:44→20:56)
[2022-10-05] MEDS: GABAPENTIN 300 MG CAPSULE PO ×2 (01:44→20:56)
[2022-10-05 06:00] VITALS: BP 114/70; PULSE 87; RESP 20; TEMP 36.5; O2SAT 99
[2022-10-05 06:13] LABS: Hematocrit 33.8 % (42.0-52.0); Mean Corpuscular HGB Conc 32.5 g/dl (32-36); Mean Corpuscular Hemoglobin 31.3 pg (26-34); Mean Platelet Volume 8.9 fl (7.4-10.4); Platelet Count Result 207 k/mm3 (150-375); Red Blood Count 3.52 M/mm3 (4.6-6.20); Red Cell Distribution Width 12.9 % (11.5-14.5); White Blood Count 5.8 K/mm3 (4.5-10.0)
[2022-10-05 06:41] LABS: Alanine Aminotransferase 19 U/L (6-50); Albumin Level 2.7 g/dL (3.5-5.1); Alkaline Phosphatase 67 U/L (38-126); Anion Gap 5 mmol/L (8-16); Aspartate Amino Transferase 13 U/L (17-59); Bilirubin,Total 0.3 mg/dL (0.2-1.3); Blood Urea Nitrogen 12 mg/dL (9-20); Calcium 8.4 mg/dL (8.4-10.2); Carbon Dioxide 23 mmol/L (22-30); Chloride 104 mmol/L (98-107); Estimated CRCL calculation 66 ml/min; Estimated Glomerular Filt Rate > 60; Glucose 89 mg/dL (65-110); Potassium 3.4 mmol/L (3.4-5.0); Sodium 132 mmol/L (137-145)
--- NOTE | 2022-10-05 07:38 | PM.IMPN ---
Progress Note: A&P Assessment and Plan (1) Colitis: Code(s): K52.9 - Noninfective gastroenteritis and colitis, unspecified Status: Acute Assessment and Plan: Patient presented with blood in his stools and diarrhea. CT revealed colitis -patient white blood cell count normal but does have bandemia -continue to monitor CBC and BMP -patient started on Zosyn -GI consulted -NPO diet -stool cultures ordered and waiting collection (2) GI bleed: Qualifiers: GI bleed type/associated pathology: unspecified gastrointestinal hemorrhage type Qualified Code(s): K92.2 - Gastrointestinal hemorrhage, unspecified Code(s): K92.2 - Gastrointestinal hemorrhage, unspecified Status: Acute Assessment and Plan: -GI on board -normal colonoscopy in May 2021 -admitted with a hemoglobin of 12.1, today hemoglobin 11 -continue to monitor H&H (3) NATHANIEL on CPAP: Code(s): G47.33 - Obstructive sleep apnea (adult) (pediatric); Z99.89 - Dependence on other enabling machines and devices Status: Acute Assessment and Plan: Continue home CPAP Time Spent With Patient Time with patient: Greater than 35 minutes Subjective Date/time seen: 10/05/22 07:38 Interval history: 71-year-old with history of osteoporosis and seizure disorder. Patient arrived to the ER due to having diarrhea and blood in stool for 1 week. Patient states that diarrhea is constant and that he had tried Imodium without success. Patient is still currently having diarrhea although not having full bowel movements making it difficult to obtain stool sample. Patient denies fever, nausea, vomiting, dizziness, visual changes, chest pain, shortness a breath. States that his only symptom is diarrhea. Review of Systems Review of Systems: All systems reviewed & are unremarkable except as noted in HPI and below Exam Narrative: GENERAL: Comfortable, no acute distress HENMT: moist mucous membranes EYES: EOM intact b/l NECK: no lymphadenopathy RESPIRATORY: clear to auscultation CARDIO: RRR GI: soft, nontender, hyperactive bowel sounds SKIN: no rashes EXTREMITIES: no edema, redness or tenderness Objective Data Vital Signs Vital Signs: Vital Signs - 24 hr 10/04/22 17:09 10/04/22 17:08 10/04/22 18:00 Temperature 99.5 F Pulse Rate 99 98 Respiratory Rate 18 18 18 Blood Pressure 136/85 136/85 136/85 Pulse Oximetry 97 100 98 Oxygen Delivery 10/05/22 00:03 10/05/22 01:01 10/05/22 06:00 Temperature 97.6 F 97.7 F Pulse Rate 90 87 Respiratory Rate 22 H 20 Blood Pressure 120/70 114/70 Pulse Oximetry 100 99 Oxygen Delivery Room Air Intake/Output Intake/Output: Intake & Output 10/02/22 10/03/22 10/04/22 10/05/22 23:59 23:59 23:59 23:59 Intake Total 1050 Output Total 200 Balance 1050 -200 Meds/Results Medications: Active Medications Generic Name Dose Route Start Last Admin Trade Name Freq PRN Reason Stop Dose Admin Calcium Carbonate 500 mg 10/05/22 09:00 Calcium Carbonate (Oscal) 500 Mg Tablet PO BID ALICE Colestipol HCl 1 gm 10/05/22 10:00 Colestipol Hcl 1 Gm Tablet PO 1000,1800 ALICE Duloxetine HCl 60 mg 10/05/22 09:00 Duloxetine Hcl 60 Mg Capsule.Dr PO DAILY ALICE Gabapentin 300 mg 10/05/22 01:15 10/05/22 01:44 Gabapentin 300 Mg Capsule PO 300 mg Q12HR ALICE Administration Piperacillin/Tazobactam/Dextrose 3.375 gm in 50 mls @ 100 mls/hr 10/05/22 05:00 10/05/22 04:37 Zosyn 3.375 Gm/D5w 50ml Pm IVPB 100 mls/hr Q6HR ALICE Administration Sodium Chloride 1,000 mls @ 100 mls/hr 10/04/22 20:10 10/05/22 00:14 Normal Saline Iv IV CONT 100 mls/hr .Q10H ALICE Administration Oxycodone HCl 10 mg 10/05/22 01:12 10/05/22 01:44 Oxycodone Hcl (*Crx) 5 Mg Tab Ir PO 10 mg Q4H PRN Administration Pain Rated 7-10 Pantoprazole Sodium 40 mg 10/05/22 09:00 Pantoprazole 40 Mg Tablet PO DAILY ALICE Polyethylene
[2022-10-05 08:41] VITALS: RESP 20; O2SAT 99
[2022-10-05] MEDS: TOPIRAMATE 100 MG TABLET PO ×2 (08:41→17:24)
[2022-10-05 08:49] LABS: Band Neutrophils Percent 18 % (0-6); Eosinophils Absolute Manual 0.11 K/mm3 (0.02-0.5); Eosinophils Percent Manual 2 % (0-4); Monocytes Absolute Manual 0.34 K/mm3 (0.1-0.90); Monocytes Percent Manual 6 % (3-9); Neutrophils Absolute Manual 3.82 K/mm3 (1.3-6.7); Neutrophils Percent Manual 48 % (46-73); Platelet Estimate Adequate (Adequate); Total Cells Counted 100
[2022-10-05 08:50] LABS: Ovalocytes 1+ (NORMAL); Schistocytes None Seen (NORMAL)
[2022-10-05 08:51] LABS: Hypochromasia 1+ (NORMAL)
[2022-10-05] MEDS: DULoxetine HCL 60 MG CAPSULE.DR PO (08:56)
[2022-10-05] MEDS: PANTOPRAZOLE 40 MG TABLET PO (08:56)
[2022-10-05 14:00] VITALS: BP 113/66; PULSE 88; RESP 20; TEMP 36.7; O2SAT 98
--- NOTE | 2022-10-05 15:49 | WPDGICN ---
Assessment and Plan Assessment and plan (1) Colitis: Code(s): K52.9 - Noninfective gastroenteritis and colitis, unspecified Status: Acute Assessment and Plan: could be either infectious or ischemic but normal lactic, already better last colonoscopy 2020 on antibiotics pending stool samples ok to advance diet as tolerated (2) Diarrhea: Code(s): R19.7 - Diarrhea, unspecified Status: Acute (3) GI bleed: Qualifiers: GI bleed type/associated pathology: unspecified gastrointestinal hemorrhage type Qualified Code(s): K92.2 - Gastrointestinal hemorrhage, unspecified Code(s): K92.2 - Gastrointestinal hemorrhage, unspecified Status: Acute Assessment and Plan: from colitis no need to repeat colonoscopy unless other changes (4) Lumbar stenosis: Code(s): M48.061 - Spinal stenosis, lumbar region without neurogenic claudication Status: Acute Assessment and Plan: surgery complicated with leg weakness (5) Chronic low back pain: Code(s): M54.50 - Low back pain, unspecified; G89.29 - Other chronic pain Status: Acute GI Consult Note Consult date/time: 10/05/22 15:49 Reason for consult: colitis HPI: Aly Cervantes is a 71 year old male with history of osteoporosis, multiple compression fractures, spinal stenosis s/p back surgery on Jun 2022 complicated with leg weakness unable to walk, he has been staying in a local rehabilitation center since. He came here with almost 5 days of several episodes of diarrhea that turned bloody, also cramping abdominal discomfort and chills. He is frequently incontinent of stools because he can not get up and move around himself since had spine surgery. He had a colonoscopy by Dr Jones 05/2021 that showed diverticulosis and large hemorrhoids. CT scan showed colitis, involving particularly the sigmoid and descending colon; diffusion diagnosis includes primarily inflammatory or infectious colitis.Status post cholecystectomy, Multiple compression fractures of thoracic and lumbar spine, status post vertebroplasty at T12 and L5, Right total hip replacement, postoperative change of proximal left femur. He was started on abx Review of Systems Constitutional: Constitutional: Reports chills Eyes: Eyes: Denies blurry vision ENT: Comments: hard of hearing Cardiovascular: Cardiovascular: Denies chest pain Respiratory: Respiratory: Denies chest congestion Gastrointestinal: Gastrointestinal: Reports diarrhea Genitourinary: Genitourinary: Denies dysuria Musculoskeletal: Comments: back pain Integumentary/Breasts: Skin/Breast: Denies rash Neurologic: Comments: unable to move legs since surgery Psychiatric: Psychiatric: Denies behavioral changes [facility] Past Medical History Medical History (Updated 10/04/22 @ 21:38 by Annette Jarrell DO) Arthritis ED (erectile dysfunction) of organic origin RAYNA (generalized anxiety disorder) History of seizure disorder Following meningitis as a child Hyperlipidemia Metal bone fixation hardware in place NATHANIEL on CPAP Osteoporosis Restless legs Surgical History Surgical History (Updated 10/04/22 @ 21:36 by Annette Jarrell DO) History of appendectomy History of back surgery History of bilateral knee replacement (~2000) History of brain surgery History of cholecystectomy (~1987) History of hernia repair History of repair of congenital atrial septal defect (ASD) History of sinus surgery (~1994) History of tonsillectomy History of total right hip replacement S/P patent foramen ovale closure Status post lumbar spine surgery for decompression of spinal cord Status post open reduction with internal fixation of fracture (2009) Left hip intramedullary nail following trauma Family History Family History Mother Osteoporosis Social History Social History (Updated 10/05/22 @ 08:20 by Annette Jarrell,
[2022-10-05] MEDS: COLESTIPOL HCL 1 GM TABLET PO (17:24)
[2022-10-05] MEDS: CALCIUM CARBONATE (OSCAL) 500 MG TABLET PO (17:24)
[2022-10-05] MEDS: SACCHAROMYCES BOULARDII 250 MG CAPSULE PO (17:24)
[2022-10-05 21:45] VITALS: BP 129/67; PULSE 88; RESP 16; TEMP 36.7; O2SAT 100
[2022-10-06 05:08] LABS: Hematocrit 33.7 % (42.0-52.0); Hemoglobin 10.7 g/dL (14.0-18.0); Mean Corpuscular HGB Conc 31.8 g/dl (32-36); Mean Corpuscular Hemoglobin 30.7 pg (26-34); Mean Corpuscular Volume 96.6 fl (80-100); Mean Platelet Volume 8.8 fl (7.4-10.4); Platelet Count Result 215 k/mm3 (150-375); Red Blood Count 3.49 M/mm3 (4.6-6.20); Red Cell Distribution Width 13.2 % (11.5-14.5); White Blood Count 5.1 K/mm3 (4.5-10.0)
[2022-10-06 05:18] LABS: Alanine Aminotransferase 17 U/L (6-50); Albumin Level 2.6 g/dL (3.5-5.1); Alkaline Phosphatase 73 U/L (38-126); Anion Gap 3 mmol/L (8-16); Aspartate Amino Transferase 12 U/L (17-59); Bilirubin,Total 0.3 mg/dL (0.2-1.3); Blood Urea Nitrogen 9 mg/dL (9-20); Calcium 7.8 mg/dL (8.4-10.2); Carbon Dioxide 23 mmol/L (22-30); Chloride 107 mmol/L (98-107); Estimated CRCL calculation 60 ml/min; Estimated Glomerular Filt Rate > 60; Glucose 78 mg/dL (65-110); Magnesium 1.9 mg/dL (1.6-2.3); Potassium 3.4 mmol/L (3.4-5.0); Sodium 133 mmol/L (137-145)
[2022-10-06] MEDS: oxyCODONE HCL (*CRX) 5 MG TAB IR 10 MG PO (05:22)
[2022-10-06 05:54] LABS: Band Neutrophils Percent 12 % (0-6); Eosinophils Percent Manual 4 % (0-4); Lymphocytes Absolute Manual 1.58 K/mm3 (1.1-4.5); Metamyelocytes Percent 2 %; Monocytes Absolute Manual 0.76 K/mm3 (0.1-0.90); Monocytes Percent Manual 15 % (3-9); Neutrophils Absolute Manual 2.44 K/mm3 (1.3-6.7); Neutrophils Percent Manual 36 % (46-73); Total Cells Counted 100
[2022-10-06 05:55] LABS: Atypical Lymphocytes Present; Platelet Estimate Adequate (Adequate); Schistocytes None Seen (NORMAL)
[2022-10-06 06:00] VITALS: BP 133/77; PULSE 77; RESP 16; TEMP 36.4; O2SAT 100
--- NOTE | 2022-10-06 07:14 | PM.IMPN ---
Progress Note: A&P Assessment and Plan (1) Colitis: Code(s): K52.9 - Noninfective gastroenteritis and colitis, unspecified Status: Acute Assessment and Plan: Patient presented with blood in his stools and diarrhea. CT revealed colitis -patient white blood cell count normal but does have bandemia -continue to monitor CBC and BMP -patient started on Zosyn -GI consulted -NPO diet -stool cultures ordered and waiting collection -per nurse, pt having continuous oozing stool and has not been able to collect adequate sample - (2) GI bleed: Qualifiers: GI bleed type/associated pathology: unspecified gastrointestinal hemorrhage type Qualified Code(s): K92.2 - Gastrointestinal hemorrhage, unspecified Code(s): K92.2 - Gastrointestinal hemorrhage, unspecified Status: Acute Assessment and Plan: -GI on board -normal colonoscopy in May 2021 -admitted with a hemoglobin of 12.1, today hemoglobin 11 -continue to monitor H&H -not on anticoagulation due to increased bleeding risk (3) NATHANIEL on CPAP: Code(s): G47.33 - Obstructive sleep apnea (adult) (pediatric); Z99.89 - Dependence on other enabling machines and devices Status: Acute Assessment and Plan: Continue home CPAP Subjective Date/time seen: 10/06/22 07:14 Objective Data Vital Signs Vital Signs: Vital Signs - 24 hr 10/05/22 08:41 10/05/22 14:00 10/05/22 21:45 Temperature 98.1 F 98.1 F Pulse Rate 88 88 Respiratory Rate 20 20 16 Blood Pressure 113/66 129/67 Pulse Oximetry 99 98 100 Oxygen Delivery Room Air 10/05/22 20:45 10/06/22 06:00 Temperature 97.6 F Pulse Rate 77 Respiratory Rate 16 Blood Pressure 133/77 Pulse Oximetry 100 Oxygen Delivery Room Air Intake/Output Intake/Output: Intake & Output 10/03/22 10/04/22 10/05/22 10/06/22 23:59 23:59 23:59 23:59 Intake Total 1050 2270 100 Output Total 200 Balance 1050 2070 100 Meds/Results Medications: Active Medications Generic Name Dose Route Start Last Admin Trade Name Freq PRN Reason Stop Dose Admin Calcium Carbonate 500 mg 10/05/22 09:00 10/05/22 17:24 Calcium Carbonate (Oscal) 500 Mg Tablet PO 500 mg BID ALICE Administration Colestipol HCl 1 gm 10/05/22 10:00 10/05/22 17:24 Colestipol Hcl 1 Gm Tablet PO 1 gm 1000,1800 ALICE Administration Duloxetine HCl 60 mg 10/05/22 09:00 10/05/22 08:56 Duloxetine Hcl 60 Mg Capsule.Dr PO 60 mg DAILY ALICE Administration Gabapentin 300 mg 10/05/22 01:15 10/05/22 20:56 Gabapentin 300 Mg Capsule PO 300 mg Q12HR ALICE Administration Piperacillin/Tazobactam/Dextrose 3.375 gm in 50 mls @ 100 mls/hr 10/05/22 05:00 10/06/22 06:39 Zosyn 3.375 Gm/D5w 50ml Pm IVPB Infused Q6HR ALICE Infusion Sodium Chloride 1,000 mls @ 100 mls/hr 10/04/22 20:10 10/05/22 21:59 Normal Saline Iv IV CONT 100 mls/hr .Q10H ALICE Administration Oxycodone HCl 10 mg 10/05/22 01:12 10/06/22 05:22 Oxycodone Hcl (*Crx) 5 Mg Tab Ir PO 10 mg Q4H PRN Administration Pain Rated 7-10 Pantoprazole Sodium 40 mg 10/05/22 09:00 10/05/22 08:56 Pantoprazole 40 Mg Tablet PO 40 mg DAILY ALICE Administration Polyethylene Glycol 17 gm 10/05/22 01:12 Polyethylene Glycol 3350 17 Gm Powd.Pack PO DAILY PRN Constipation Saccharomyces Boulardii 250 mg 10/05/22 09:00 10/05/22 17:24 Saccharomyces Boulardii 250 Mg Capsule PO 250 mg BID ALICE Administration Topiramate 100 mg 10/05/22 09:00 10/05/22 17:24 Topiramate 100 Mg Tablet PO 100 mg BID ALICE Administration Vitamin D 5,000 units 10/05/22 09:00 10/05/22 08:48 Cholecalciferol 1,000 Units Tablet PO Not Given DAILY [facility] Radiology Results: ITS Impressions Abdomen/Pelvis CT 10/04/22 19:03 IMPRESSION: Colitis, involving particularly the sigmoid and descending colon; diffusion diagnosis includes primarily inflammatory or infectious colitis. Bilat
[2022-10-06] MEDS: GABAPENTIN 300 MG CAPSULE PO (08:17)
[2022-10-06] MEDS: DULoxetine HCL 60 MG CAPSULE.DR PO (08:18)
[2022-10-06] MEDS: CHOLECALCIFEROL 1,000 UNITS TABLET 5000 UNITS PO (08:18)
[2022-10-06] MEDS: TOPIRAMATE 100 MG TABLET PO (08:19)
[2022-10-06] MEDS: SACCHAROMYCES BOULARDII 250 MG CAPSULE PO (08:19)
[2022-10-06] MEDS: PANTOPRAZOLE 40 MG TABLET PO (08:19)
[2022-10-06] MEDS: CALCIUM CARBONATE (OSCAL) 500 MG TABLET PO (08:19)
[2022-10-06] MEDS: SODIUM CHLORIDE 0.9% IV 1,000 ML 100 ML IV CONT (09:14)
[2022-10-06] MEDS: COLESTIPOL HCL 1 GM TABLET PO (09:15)
--- NOTE | 2022-10-06 10:35 | WPDGIPROGNO ---
Progress Note: A&P Assessment and Plan (1) Colitis: Code(s): K52.9 - Noninfective gastroenteritis and colitis, unspecified Status: Acute Assessment and Plan: improving, recent stool culture collected at rehab place negative he can go with oral antibiotics probably 3-4 more days (2) Diarrhea: Code(s): R19.7 - Diarrhea, unspecified Status: Acute Assessment and Plan: improved (3) GI bleed: Qualifiers: GI bleed type/associated pathology: unspecified gastrointestinal hemorrhage type Qualified Code(s): K92.2 - Gastrointestinal hemorrhage, unspecified Code(s): K92.2 - Gastrointestinal hemorrhage, unspecified Status: Acute (4) Chronic low back pain: Code(s): M54.50 - Low back pain, unspecified; G89.29 - Other chronic pain Status: Acute Assessment and Plan: with bilateral leg weakness- chronic after surgery (5) Lumbar stenosis: Code(s): M48.061 - Spinal stenosis, lumbar region without neurogenic claudication Status: Acute (6) Globus sensation: Code(s): R09.89 - Other specified symptoms and signs involving the circulatory and respiratory systems Status: Acute Assessment and Plan: will do EGD as outpatient Subjective Date/time seen: 10/06/22 10:35 Interval history: doing better without more diarrhea or blood in stools, he is eating but still with funny sensation at his throat Review of Systems Review of Systems: All systems reviewed & are unremarkable except as noted in HPI and below Exam Const: General: comfortable and no acute distress HENMT: Face/Nose/Sinus: Normal nares present Eyes: General: appearance normal, both eyes and all related structures Neck: Neck: no JVD Resp: Auscultation: clear to auscultation bilaterally Cardio: Rate: regular rate Rhythm: regular rhythm GI: Inspection: non-distended GI Palp: Yes Soft to palpation and No Tenderness to palpation present (GI) Auscultation: normal bowel sounds Skin: General skin exam: normal color Neuro: Speech: normal speech Other: b/l lower extremity weakness Extrem: General: normal to inspection Psych: Mental Status: mental status grossly normal Objective Data Vital Signs Vital Signs: Vital Signs - 24 hr 10/05/22 14:00 10/05/22 21:45 10/05/22 20:45 Temperature 98.1 F 98.1 F Pulse Rate 88 88 Respiratory Rate 20 16 Blood Pressure 113/66 129/67 Pulse Oximetry 98 100 Oxygen Delivery Room Air 10/06/22 06:00 10/06/22 08:10 Temperature 97.6 F Pulse Rate 77 Respiratory Rate 16 Blood Pressure 133/77 Pulse Oximetry 100 Oxygen Delivery Room Air Intake/Output Intake/Output: Intake & Output 10/03/22 10/04/22 10/05/22 10/06/22 23:59 23:59 23:59 23:59 Intake Total 1050 2270 1100 Output Total 200 Balance 1050 2070 1100 Meds/Results Medications: Active Medications Generic Name Dose Route Start Last Admin Trade Name Freq PRN Reason Stop Dose Admin Calcium Carbonate 500 mg 10/05/22 09:00 10/06/22 08:19 Calcium Carbonate (Oscal) 500 Mg Tablet PO 500 mg BID ALICE Administration Colestipol HCl 1 gm 10/05/22 10:00 10/06/22 09:15 Colestipol Hcl 1 Gm Tablet PO 1 gm 1000,1800 ALICE Administration Duloxetine HCl 60 mg 10/05/22 09:00 10/06/22 08:18 Duloxetine Hcl 60 Mg Capsule.Dr PO 60 mg DAILY ALICE Administration Gabapentin 300 mg 10/05/22 01:15 10/06/22 08:17 Gabapentin 300 Mg Capsule PO 300 mg Q12HR ALICE Administration Piperacillin/Tazobactam/Dextrose 3.375 gm in 50 mls @ 100 mls/hr 10/05/22 05:00 10/06/22 06:39 Zosyn 3.375 Gm/D5w 50ml Pm IVPB Infused Q6HR ALICE Infusion Sodium Chloride 1,000 mls @ 100 mls/hr 10/04/22 20:10 10/06/22 09:14 Normal Saline Iv IV CONT 100 mls/hr .Q10H ALICE Administration Oxycodone HCl 10 mg 10/05/22 01:12 10/06/22 05:22 Oxycodone Hcl (*Crx) 5 Mg Tab Ir PO 10 mg Q4H PRN Administration Pain Ra
--- NOTE | 2022-10-06 10:46 | PM.DS ---
DS: Admitting Diagnosis Discharge Date 10/06/22 Admitting Diagnosis Colitis DS: Discharge Diagnosis Discharge Diagnosis (1) Colitis: Code(s): K52.9 - Noninfective gastroenteritis and colitis, unspecified Status: Acute Assessment and Plan: Patient presented with blood in his stools and diarrhea. CT revealed colitis -patient white blood cell count normal but does have bandemia -continue to monitor CBC and BMP -patient started on Zosyn -GI consulted -NPO diet -stool cultures ordered and waiting collection -per nurse, pt having continuous oozing stool and has not been able to collect adequate sample -Stool cultures that were taken at [facility] were negative -Pt cleared to be discharged by GI (2) GI bleed: Qualifiers: GI bleed type/associated pathology: unspecified gastrointestinal hemorrhage type Qualified Code(s): K92.2 - Gastrointestinal hemorrhage, unspecified Code(s): K92.2 - Gastrointestinal hemorrhage, unspecified Status: Acute Assessment and Plan: -GI on board -normal colonoscopy in May 2021 -admitted with a hemoglobin of 12.1, today hemoglobin 11 -continue to monitor H&H -not on anticoagulation due to increased bleeding risk (3) NATHANIEL on CPAP: Code(s): G47.33 - Obstructive sleep apnea (adult) (pediatric); Z99.89 - Dependence on other enabling machines and devices Status: Acute Assessment and Plan: Continue home CPAP DS: Summary Hospital Course Reason for hospitalization: Colitis, diarrhea x1 week Hospital Course: 71-year-old patient with a history of osteoporosis, compression fractures, spinal stenosis and seizure disorder; arrived to the ER on 10/04/2022 with chief complaint of diarrhea. Patient had diarrhea for 1 week and have begun to notice blood in the diarrhea. Stool cultures and samples were previously taken at patient's assisted living. Patient denied fever, nausea, vomiting. Patient did have lower abdominal pain associated with his symptoms. Patient was admitted to observation and given IV Zosyn for likely infectious diarrhea. Patient put on NPO and GI was consulted. Stool cultures were attempted at [place] but patient was unable to produce enough stool for culture. Frequency and amount of stool has decreased since arrival and patient has not noticed any blood since arrival. Patient has slowly advance diet since admission and has tolerated it well. [facility]. Patient cleared by GI to return home and continue antibiotics for 3-4 days. Appreciate GI is recommendations and consultation. Time Spent with Patient Time attestation: Total time spent providing and/or coordinating discharge services: Exam Narrative: GENERAL: Comfortable, no acute distress HENMT: moist mucous membranes EYES: EOM intact b/l RESPIRATORY: clear to auscultation CARDIO: RRR GI: soft, nontender, bowel sounds present SKIN: no rashes EXTREMITIES: no edema, redness or tenderness DS: Data Data Completed and Pending Labs on day of discharge: Labs from last 24 hours 10/06/22 10/06/22 04:39 04:39 WBC 5.1 RBC 3.49 L Hgb 10.7 L Hct 33.7 L MCV 96.6 MCH 30.7 MCHC 31.8 L RDW 13.2 Plt Count 215 MPV 8.8 Immature Gran % (Auto) Not Reportable Neut % (Auto) Not Reportable Lymph % (Auto) Not Reportable Ritchie % (Auto) Not Reportable Eos % (Auto) Not Reportable Baso % (Auto) Not Reportable Lymph # (Auto) Not Reportable Ritchie # (Auto) Not Reportable Eos # (Auto) Not Reportable Baso # (Auto) Not Reportable Abs Immat Gran (auto) Not Reportable Absolute Neuts (auto) Not Reportable Absolute Nucleated RBC Not Reportable Total Counted 100 Neutrophils % (Manual) 36 L Band Neutrophils % 12 H Lymphocytes % (Manual) 31.0 Monocytes % (Manual) 15 H Eosinophils % (Manual) 4 Metamyelocytes % 2 Nucleated RBC % Not Reportable Abs Neuts (Manual) 2.44 Abs Lymphs (M
[2022-10-06 10:59] VITALS: O2SAT 97
[2022-10-06 12:54] LABS: EDCOVIDSCREEN Negative (Negative)
[2022-10-06 14:00] VITALS: BP 124/73; PULSE 88; RESP 20; TEMP 36.3; O2SAT 100
--- NOTE | 2022-10-06 14:30 | PCPTNOTE ---
Patient has discharge orders from the hospital. Checked with MIGUE Carpenter, and states he is leaving today, waiting on transportation.
== END 2022-10-06 16:00 ==
LOC: ANHED 20:49 → ANH2MED 23:37
PROVIDERS: Internal Medicine Critical Care Medicine; Internal Medicine Gastroenterology; Admitting Provider Internal Medicine; Emergency Provider Emergency Medicine; PCP Family Medicine; Visit Provider Student in an Organized Health Care Education/Training Program
DX: K52.9 Noninfective gastroenteritis and colitis, unspecified (principal); K92.2 Gastrointestinal hemorrhage, unspecified; M48.061 Spinal stenosis, lumbar region without neurogenic claudication; G89.29 Other chronic pain; M54.50 Low back pain, unspecified; G47.33 Obstructive sleep apnea (adult) (pediatric); Z99.89 Dependence on other enabling machines and devices; M19.90 Unspecified osteoarthritis, unspecified site; E78.5 Hyperlipidemia, unspecified; N20.0 Calculus of kidney; F41.1 Generalized anxiety disorder; N28.1 Cyst of kidney, acquired; Z20.822 Contact with and (suspected) exposure to COVID-19; M81.0 Age-related osteoporosis without current pathological fracture; G25.81 Restless legs syndrome; Z96.641 Presence of right artificial hip joint; Z96.653 Presence of artificial knee joint, bilateral; G40.909 Epilepsy, unspecified, not intractable, without status epilepticus; Z90.49 Acquired absence of other specified parts of digestive tract; Z87.891 Personal history of nicotine dependence; Z79.899 Other long term (current) drug therapy; Z82.62 Family history of osteoporosis
CPT/HCPCS: 36415; 74177; 80053; 83605; 83690; 83735; 85014; 85018; 85025; 85610; 85730; 87426; 87636; 96361; 96365; 99285; A9270; C9803; G0378; J2543; J7030; Q9967

== ENCOUNTER 2022-12-13 14:30 | Observation (INO) | payer MEDICARE, SELFPAY ==
--- NOTE | ~2022-12-13 | CT_ITS ---
EXAMINATION: CTA chest abdomen pelvis DATE: 12/13/2022 16:24 INDICATION: Epigastric abdominal pain TECHNIQUE: Computed tomographic angiography (CTA) of the chest, abdomen, and pelvis was performed wit hout and with 100 mL Omnipque-350 intravenous contrast. Maximum intensity projection 3D-reconstructio ns of the aorta and other arteries were constructed by the technologist on a separate workstation. Th e dose-length product (DLP) was 966.43 mGy-cm. Automated exposure control and iterative reconstructio n technique were employed. COMPARISON: 10/04/2022 FINDINGS: CHEST CTA: There is no aneurysm or dissection of the thoracic aorta. There is a 2.3 cm nodule of the right thyro id lobe. There is mild atelectasis of the lower lobes. No pleural effusion or pneumothorax. No pathol ogically enlarged thoracic lymph nodes are identified. The heart size is normal. An ASD closure devic e is noted. There is stenosis of the right subclavian vein as it passes between the clavicle and firs t rib resulting in multiple chest wall collaterals. There is an effusion of the right shoulder joint. ABDOMEN AND PELVIS CTA: There is no aneurysm or dissection of the abdominal aorta. The celiac axis, superior mesenteric arter y, and inferior mesenteric artery are normal at their origins. There are single renal arteries bilate rally. There appears to be wall thickening of the gastric antrum. Sensitivity is limited by respirato ry motion artifact. There is a 6 mm arterially enhancing lesion in liver segment , likely focal nod ular hyperplasia or a flash filling hemangioma based on the appearance on recent CT. The spleen, panc reas, and adrenal glands are normal. The gallbladder is surgically absent. Nonobstructing stones of t he right kidney measure up to 10 mm. Nonobstructing stones of the left kidney measure up to 6 mm. No pathologically enlarged abdominal or pelvic lymph nodes are identified. No free intraperitoneal gas o r evidence of bowel obstruction. There is hyperattenuating material dependently in the urinary bladde r. There are changes of bilateral total hip arthroplasty. Severe lumbar spondylosis and vertebroplast y change are noted. IMPRESSION: 1. No aneurysm or dissection of the aorta. 2. Possible wall thickening of the gastric antrum which could reflect gastritis versus peptic ulcer d isease. 3. Right thyroid nodule. Consider nonemergent ultrasound for risk stratification. 4. Bilateral nonobstructing nephrolithiasis. 5. Layering hyperattenuating material in the urinary bladder which could reflect tiny stones. Reviewed, dictated and finalized at location F. NEL MARKETING MANAGER IMPRESSION: 1. No aneurysm or dissection of the aorta. 2. Possible wall thickening of the gastric antrum which could reflect gastritis versus peptic ulcer disease. 3. Right thyroid nodule. Consider nonemergent ultrasound for risk stratificatio n. 4. Bilateral nonobstructing nephrolithiasis. 5. Layering hyperattenuating material in the urinary bladder which could reflec t tiny stones.
--- NOTE | ~2022-12-13 | US_ITS ---
EXAMINATION: US thyroid DATE: 12/14/2022 08:21 INDICATION: Thyroid nodule. TECHNIQUE: Multiple ultrasound images of the thyroid were obtained. COMPARISON: Chest CT 12/13/2022, 07/25/07, thyroid scintigraphy 08/19/2007 FINDINGS: The right thyroid lobe measures 3.8 x 2.3 x 2.2 cm. The left thyroid lobe measures 3.7 x 1.2 x 1.3 c m. In the right thyroid lobe, there is a 3.3 cm solid, hypoechoic, wider than tall nodule with lobul ated margin without echogenic foci (TI-RADS TR4). The nodule demonstrated equal activity to normal th yroid on the prior scintigraphy. IMPRESSION: 1. Right thyroid nodule, stable from 07/25/07, likely benign. No follow-up is needed. Reviewed, dictated and finalized at location A. DIAL MASSEUR IMPRESSION: 1. Right thyroid nodule, stable from 07/25/07, likely benign. No follow-up is n eeded.
[2022-12-13 14:32] VITALS: BP 165/95; PULSE 92; RESP 14; TEMP 36.7; O2SAT 100
[2022-12-13 14:51] LABS: Basophils Absolute Auto 0.1 K/mm3 (0.0-0.1); Basophils Percent Auto 0.7 % (0.2-1.2); Eosinophils Absolute Auto 0.2 K/mm3 (0-0.3); Hematocrit 39.6 % (42.0-52.0); Hemoglobin 12.4 g/dL (14.0-18.0); Immature Granulocyte Absolute 0.03 K/mm3 (0.00-0.031); Immature Granulocyte Percent A 0.4 % (0-0.5); Lymphocytes Absolute Auto 1.35 K/mm3 (0.9-3.2); Lymphocytes Percent Auto 18.3 % (18.3-44.2); Mean Corpuscular HGB Conc 31.3 g/dl (32-36); Mean Corpuscular Hemoglobin 29.2 pg (26-34); Mean Corpuscular Volume 93.4 fl (80-100); Mean Platelet Volume 8.3 fl (7.4-10.4); Monocytes Absolute Auto 0.4 K/mm3 (0.1-0.6); Monocytes Percent Auto 5.6 % (2.6-8.5); Neutrophils Absolute Auto 5.4 K/mm3 (1.3-6.7); Platelet Count Result 267 k/mm3 (150-375); Red Blood Count 4.24 M/mm3 (4.6-6.20); Red Cell Distribution Width 14.6 % (11.5-14.5); White Blood Count 7.4 K/mm3 (4.5-10.0)
[2022-12-13 15:01] LABS: Alanine Aminotransferase 19 U/L (6-50); Albumin Level 4.2 g/dL (3.5-5.1); Alkaline Phosphatase 90 U/L (38-126); Anion Gap 7 mmol/L (8-16); Aspartate Amino Transferase 19 U/L (17-59); Bilirubin,Total 0.5 mg/dL (0.2-1.3); Blood Urea Nitrogen 10 mg/dL (9-20); Calcium 9.6 mg/dL (8.4-10.2); Carbon Dioxide 24 mmol/L (22-30); Chloride 110 mmol/L (98-107); Estimated CRCL calculation 72 ml/min; Estimated Glomerular Filt Rate > 60; Glucose 98 mg/dL (65-110); Lipase 130 U/L (23-300); Potassium 3.8 mmol/L (3.4-5.0); Sodium 141 mmol/L (137-145)
--- NOTE | 2022-12-13 16:00 | ED.GENADULT ---
HPI - General Adult General Chief complaint: Abdominal Pain Stated complaint: abd pain radiating to chest Time Seen by Provider: 12/13/22 15:34 History of Present Illness HPI narrative: 72-year-old male presenting to the emergency department for evaluation of worsening abdominal pain. Patient has a history of abdominal pain and colitis and C. difficile. Patient follows up with Dr. Estrada for GI and patient is scheduled to have a colonoscopy on December 25. Patient states over the last few days the pain has been worsening. Patient states that the abdominal pain now radiates up into his chest. Patient states he has not been sleeping due to the pain. Patient stays at [facility]. Related Data Home Medications Medication Instructions Recorded Confirmed calcium carbonate 600 mg calcium 600 mg PO BID 05/17/20 12/13/22 (1,500 mg) tablet (Calcium) cholecalciferol (vitamin D3) 25 125 mcg PO DAILY 05/17/20 12/13/22 mcg (1,000 unit) capsule topiramate 100 mg tablet 100 mg PO BID 05/17/20 12/13/22 Saccharomyces boulardii 250 mg 250 mg PO BID 10/05/22 12/13/22 capsule (Florastor) colestipol 1 gram tablet (Colestid) 1 g PO BID 10/05/22 12/13/22 gabapentin 300 mg capsule 300 mg PO BID 10/05/22 12/13/22 pantoprazole 40 mg tablet,delayed 40 mg PO DAILY 10/05/22 12/13/22 release (Protonix) polyethylene glycol 3350 17 gram 17 g PO DAILY PRN Constipation 10/05/22 12/13/22 oral powder packet (Miralax) duloxetine 60 mg capsule,delayed 60 mg PO DAILY 11/07/22 12/13/22 release Allergies Allergy/AdvReac Type Severity Reaction Status Date / Time Sulfa (Sulfonamide Allergy Unknown Unknown Verified 12/13/22 14:19 Antibiotics) Review of Systems Review of Systems: CONSTITUTIONAL: Denies fever, chills, or sweats. EYES: Denies visual changes, redness, or discharge. ENT: Denies rhinorrhea, congestion, sore throat, or otalgia. CARDIOVASCULAR: Denies chest pain, palpitations, or edema. RESPIRATORY: Denies cough or dyspnea. GASTROINTESTINAL: See HPI GENITOURINARY: Denies dysuria or hematuria. SKIN: Denies rash or itching. MUSCULOSKELETAL: Denies back pain, joint pain, or myalgia. NEUROLOGIC: Denies headache, numbness, or weakness. [facility] Past Medical History Medical History (Updated 12/13/22 @ 20:11 by Rik Singh MD) Arthritis C. difficile colitis ED (erectile dysfunction) of organic origin RAYNA (generalized anxiety disorder) Globus sensation History of seizure disorder Following meningitis as a child Hyperlipidemia Metal bone fixation hardware in place NATHANIEL on CPAP Osteoporosis Restless legs Surgical History Surgical History (Updated 10/04/22 @ 21:36 by Annette Jarrell DO) History of appendectomy History of back surgery History of bilateral knee replacement (~2000) History of brain surgery History of cholecystectomy (~1987) History of hernia repair History of repair of congenital atrial septal defect (ASD) History of sinus surgery (~1994) History of tonsillectomy History of total right hip replacement S/P patent foramen ovale closure Status post lumbar spine surgery for decompression of spinal cord Status post open reduction with internal fixation of fracture (2009) Left hip intramedullary nail following trauma Family History Family History (Updated 12/13/22 @ 18:02 by Tammy Chavez NP) Mother Osteoporosis Breast cancer Father Malignant neoplasm of prostate Social History Social History (Updated 12/13/22 @ 18:05 by Tammy Chavez NP) Social History: He lives with his of 49 years until his spinal surgery in June of 2022. Since that time he has been in out of various rehab facilities. He and his have 2 daughters and 7 grandchildren. He is a lifelong nonsmoker and does not drink alcohol. 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 [place] code status : full code Smoking status: Never smoker Second hand tobacco smoke exposure: No Alcohol intake: steph
[2022-12-13] MEDS: HYDROmorphone HCL INJ (*CRX) 1 MG/ML SYR 0.5 MG IV PUSH (16:08)
--- NOTE | 2022-12-13 16:08 | PC.NURSE ---
Patient off unit to CT.
[2022-12-13 17:14] VITALS: PULSE 100; O2SAT 100
[2022-12-13 17:39] LABS: Appearance Urine Clear (Clear); Bilirubin Urine Negative (Negative); Blood Urine Negative (Negative); Color Urine Yellow (Yellow); Glucose Urine UA Negative (Negative); Ketones Urine Negative (Negative); Leukocyte Esterase Ur Negative LEU/UL (Negative); Nitrate Urine Negative (Negative); Protein Urine Negative (Negative); Specific Grav Ur 1.031 (1.001-1.035); Urobilinogen Urine 0.2 mg/dL (<2.0)
[2022-12-13 17:50] LABS: Add Urine Microscopic? NO
--- NOTE | 2022-12-13 17:58 | PM.IMHP ---
H&P: HPI History of Present Illness Date/Time: 12/13/22 17:58 Chief Complaint: abdominal pain Narrative: this is a 72-year-old male [facility] The patient has a history of having C diff is tile, colitis, gastritis and peptic ulcer disease. The patient stated that he has not seen Dr. Estrada in the past but has a scheduled endoscopy with Dr. Estrada. His appointment is on December 25. The patient stated he feels more bloated and has some abdominal distension. The patient stated that he cannot lay flat due to the acid reflux. The pain sometimes radiates into his chest. Patient is not sleeping due to this acid reflux. the patient was able to tolerate clear liquids for me. ( The patient stated he has not seen Dr. Estrada however I did find a GI consultation note from 10/05/2022. In that noted stated that the patient saw Dr. Jones on 05/2021 and was found to have diverticulosis and large hemorrhoids. Patient was also diagnosed with primary inflammatory infectious colitis. The patient was placed on antibiotics at that time). Today the patient's H&H is 12.4 And 39.6. the patient denies any blood in his stool or any shortness . his urine is negative For infectious process. CT of the chest abdomen and pelvis CTA was read as. No aneurysm or dissection of the aorta. 2. Possible wall thickening of the gastric antrum which could reflect gastritis versus peptic ulcer disease. 3. Right thyroid nodule. Consider nonemergent ultrasound for risk stratification. 4. Bilateral nonobstructing nephrolithiasis. 5. Layering hyperattenuating material in the urinary bladder which could reflect tiny stones. the patient was given a GI cocktail, IV Protonix and Dilaudid. The patient is being admitted to observation status on the date of service of 12/13/2022 Review of Systems Review of Systems: see HPI All systems reviewed & are unremarkable except as noted in HPI and below Constitutional: Constitutional: Reports as per HPI and Reports no additional constitutional complaints Eyes: Eyes: Reports as per HPI and Reports no additional eye complaints ENT: Reports system reviewed and no additional complaints, except as documented and Reports Normal hearing present Cardiovascular: Cardiovascular: Reports no additional cardiovascular complaints Respiratory: Respiratory: Reports no additional respiratory complaints and Reports no additional respiratory complaints Gastrointestinal: Gastrointestinal: Reports as per HPI and Reports no additional gastrointestinal complaints Musculoskeletal: Musculoskeletal: Reports no additional musculoskeletal complaints Integumentary/Breasts: Skin/Breast: Reports system reviewed and no additional complaints, except as docu and Reports as per HPI Neurologic: Reports system reviewed and no additional complaints, except as documented, Reports as per HPI and Reports Normal hearing present Psychiatric: Psychiatric: Reports no additional psychiatric complaints and Reports as per HPI Endocrine: Endocrine: Reports no additional endocrine complaints Hematologic/Lymphatic: Hematologic/Lymphatic: Reports no additional hematologic/lymphatic complaints Allergic/Immunologic: Allergic/Immunologic: Reports no additional allergic/immunologic complaints [facility] Past Medical History Medical History Arthritis C. difficile colitis ED (erectile dysfunction) of organic origin RAYNA (generalized anxiety disorder) Globus sensation History of seizure disorder Following meningitis as a child Hyperlipidemia Metal bone fixation hardware in place NATHANIEL on CPAP Osteoporosis Restless legs Surgical History Surgical History History of appendectomy History of back surgery History of bilateral knee replacement (~2000) History of brain surgery History of cholecystectomy (~1987) His
[2022-12-13] MEDS: BELLADONNA ALK/PHENOB ELIX 10 ML, MAG HYDROX/ALUMINUM HYD/SIMETH 30 ML, LIDOCAINE HCL 2... PO (18:14)
[2022-12-13] MEDS: PANTOPRAZOLE SODIUM IV 40 MG VIAL IV PUSH (18:14)
[2022-12-13 19:25] VITALS: BP 145/53; PULSE 56; RESP 18; O2SAT 99
[2022-12-13 22:00] VITALS: BP 137/75; PULSE 80; RESP 18; TEMP 36.3; O2SAT 100
[2022-12-14 00:39] LABS: Hematocrit 33.8 % (42.0-52.0); Hemoglobin 10.8 g/dL (14.0-18.0)
[2022-12-14 03:32] VITALS: PULSE 72; O2SAT 97
[2022-12-14] MEDS: SODIUM CHLORIDE 0.9% IV 1,000 ML 100 ML IV CONT (04:36)
[2022-12-14 06:00] VITALS: BP 123/74; PULSE 73; RESP 20; TEMP 36.2; O2SAT 99
[2022-12-14 06:29] LABS: Hematocrit 33.8 % (42.0-52.0); Hemoglobin 10.8 g/dL (14.0-18.0)
[2022-12-14 06:39] LABS: Lactic Acid Reflex 0.7 mmol/L (0.7-2.0)
[2022-12-14 06:52] LABS: Alanine Aminotransferase 17 U/L (6-50); Albumin Level 3.6 g/dL (3.5-5.1); Alkaline Phosphatase 88 U/L (38-126); Anion Gap 6 mmol/L (8-16); Aspartate Amino Transferase 15 U/L (17-59); Bilirubin,Total 0.6 mg/dL (0.2-1.3); Blood Urea Nitrogen 10 mg/dL (9-20); Carbon Dioxide 21 mmol/L (22-30); Chloride 108 mmol/L (98-107); Estimated CRCL calculation 81 ml/min; Estimated Glomerular Filt Rate > 60; Glucose 88 mg/dL (65-110); Lipase 75 U/L (23-300); Magnesium 1.8 mg/dL (1.6-2.3); Potassium 3.7 mmol/L (3.4-5.0); Sodium 135 mmol/L (137-145)
[2022-12-14] MEDS: TOPIRAMATE 100 MG TABLET PO ×2 (08:42→16:37)
[2022-12-14] MEDS: PANTOPRAZOLE SODIUM IV 40 MG VIAL IV PUSH (08:42)
[2022-12-14] MEDS: GABAPENTIN 300 MG CAPSULE PO ×2 (08:42→16:37)
[2022-12-14 12:23] LABS: Hematocrit 36.4 % (42.0-52.0)
--- NOTE | 2022-12-14 13:23 | WPDGICN ---
Assessment and Plan Assessment and plan (1) Abdominal pain: Code(s): R10.9 - Unspecified abdominal pain Status: Acute Assessment and Plan: he has been dealing with gas pain for over few weeks, he was supposed to get EGD in couple weeks as outpatient but progressively worse if he stays in the hospital we can do if on Saturday CT scan read as gastritis iv protonix diet as tolerated (2) Gastritis: Code(s): K29.70 - Gastritis, unspecified, without bleeding Status: Acute (3) Abnormal CT scan, gastrointestinal tract: Code(s): R93.3 - Abnormal findings on diagnostic imaging of other parts of digestive tract Status: Acute Assessment and Plan: will check with scopes (4) Colitis: Code(s): K52.9 - Noninfective gastroenteritis and colitis, unspecified Status: Acute Assessment and Plan: possible ischemic colitis 09/2022 then developed C diff about a month ago and treated he also was supposed to follow-up with colonoscopy in about 10 days as outpatient if he is still here we can do it on Saturday (5) Chronic low back pain: Code(s): M54.50 - Low back pain, unspecified; G89.29 - Other chronic pain Status: Acute GI Consult Note Consult date/time: 12/14/22 13:23 Reason for consult: abdominal pain HPI: Aly Cervantes is a 72 year old male with history of osteoporosis, multiple compression fractures, spinal stenosis s/p back surgery on Jun 2022 complicated with leg weakness unable to walk for which has been staying in a local rehabilitation center since. I met him when he was admitted to the hospital 09/2022 with bloody diarrhea and abdominal pain, CT scan showed colitis and treated empirically with antibiotics. He had a colonoscopy by Dr Jones 05/2021 that showed diverticulosis and large hemorrhoids. Initially he was supposed to follow-up for outpatient colonoscopy to assess healing of colitis last month but in the interim he developed more diarrhea in the senior care, diagnosed with C diff and treated with dificid and his scopes scheduled for 12/25 instead. In the meantime he has been having more abdominal gas pain , treated with gas-x at the senior care. [facility] staff was in communication with office and 2 days ago we recommended to increase pantoprazole to twice daily and pepcid at bedtime but finally came to ER because worsening pain. No more diarrhea. CT scan reviewed, ?no aneurysm or dissection of the aorta. Possible wall thickening of the gastric antrum which could reflect gastritis versus peptic ulcer disease. No report of colitis. Patient is asking if he could get scopes before he leaves the hospital. Review of Systems Constitutional: Constitutional: Denies chills Eyes: Eyes: Denies blurry vision ENT: Reports Normal hearing present Cardiovascular: Cardiovascular: Denies chest pain Respiratory: Respiratory: Denies chest congestion Gastrointestinal: Gastrointestinal: Reports abdominal pain Genitourinary: Genitourinary: Denies hematuria Musculoskeletal: Musculoskeletal: Reports back pain Integumentary/Breasts: Skin/Breast: Denies rash Neurologic: Denies Abnormal speech present Psychiatric: Psychiatric: Denies behavioral changes [facility] Past Medical History Medical History (Updated 12/14/22 @ 13:37 by Nathen Flores MD) Abnormal CT scan, gastrointestinal tract Arthritis C. difficile colitis ED (erectile dysfunction) of organic origin RAYNA (generalized anxiety disorder) Globus sensation History of seizure disorder Following meningitis as a child Hyperlipidemia Metal bone fixation hardware in place NATHANIEL on CPAP Osteoporosis Restless legs Surgical History Surgical History History of appendectomy History of back surgery History of bilateral knee replacement (~2000) History of brain surgery History of cholecystectomy (~1987) History of hernia repair History of repair of conge
[2022-12-14 14:00] VITALS: BP 158/85; PULSE 88; RESP 16; TEMP 36.6; O2SAT 100
--- NOTE | 2022-12-14 14:34 | PM.DS ---
DS: Admitting Diagnosis Discharge Date 12/14/22 Admitting Diagnosis Abdominal pain DS: Discharge Diagnosis Discharge Diagnosis (1) Gastritis: Code(s): K29.70 - Gastritis, unspecified, without bleeding Status: Acute (2) Abdominal pain: Code(s): R10.9 - Unspecified abdominal pain Status: Acute (3) Osteoporosis: Code(s): M81.0 - Age-related osteoporosis without current pathological fracture Status: Acute (4) NATHANIEL on CPAP: Code(s): G47.33 - Obstructive sleep apnea (adult) (pediatric); Z99.89 - Dependence on other enabling machines and devices Status: Acute DS: Summary Hospital Course Reason for hospitalization: 72yo male with paraplegia from chronic lumbar disease here for abdominal pain. Please see H&P for details Hospital Course: Patient has been having bloating with abdominal distension over the past few weeks. Pain became so severe that resulted in shortness of breath prompting this admission. Patient is scheduled for endoscopy on 12/25/2022 but states that the pain became severe that he could not wait. He did have a colonoscopy in 06/06/2021 showing internal hemorrhoids and diverticulosis. He has never had an EGD. Hemoglobin is 12.4 and dropped slightly to 11 but overall remained stable. His LFTs were normal. Electrolytes were normal. Lipase was normal. Urinalysis was clear. CTA of the chest, abdomen and pelvis showed possible wall thickening of the gastric antrum which could reflect gastritis versus peptic ulcer disease. He is also a right thyroid nodule and bilateral nonobstructing nephrolithiasis. He has hyperattenuating material in the Urinary bladder. Thyroid ultrasound showed right thyroid nodule stable in size from 2006 so no further evaluation is needed. Patient was admitted to the medical floor. Was seen by GI. Patient did have possible ischemic colitis in September and developed C diff about a month ago. He is due for colonoscopy to follow-up after having these findings which is scheduled for 12/25/22. GI plans to try to move up the Endoscopy if possible. Discussed with patient and he feels comfortable with discharge. No Carafate since this can block visualizaion of the mucosa. He did have benefits with the GI cocktail in the ED. He overall did well and was able to be discharged on 12/14/22. Status at Discharge Cognitive/behavioral status at discharge: stable Time Spent with Patient Time attestation: Total time spent providing and/or coordinating discharge services: 35 minutes Time spent: Greater than 30 minutes Exam Narrative: AF 97.2 123/74 73 20 99% ra Gen - NARD Chest - CTA bilaterally, nml RR CV - RRR S1/S2 Abd - Soft, mildly protuberant, +BS, NT Ext - No pedal edema Neuro - 1/5 foot movement o/w bilateral LE paralysis. Psych - Nml mood and affect Skin - Warm and dry DS: Data Data Completed and Pending Labs on day of discharge: Labs from last 24 hours 12/14/22 12/14/22 12/14/22 11:56 06:16 06:16 WBC RBC Hgb 11.0 L 10.8 L Hct 36.4 L 33.8 L MCV MCH MCHC RDW Plt Count MPV Immature Gran % (Auto) Neut % (Auto) Lymph % (Auto) Peach % (Auto) Eos % (Auto) Baso % (Auto) Lymph # (Auto) Peach # (Auto) Eos # (Auto) Baso # (Auto) Abs Immat Gran (auto) Absolute Neuts (auto) Absolute Nucleated RBC Nucleated RBC % Sodium Potassium Chloride Carbon Dioxide Anion Gap BUN Creatinine Estim Creat Clear Calc Estimated GFR Glucose Lactic Acid Calcium Magnesium Ferritin 144.00 Total Bilirubin AST ALT Alkaline Phosphatase Total Protein Albumin Lipase TSH (Reflex) 1.790 Urine Color Urine Appearance Urine pH Ur Specific [place] Urine Protein Urine Glucose (UA) Urine Ketones Ur Blood (Man) Urine Nitrate Urine Bilirubin Urine Urobilinogen Leukocy
[2022-12-14] MEDS: BELLADONNA ALK/PHENOB ELIX 10 ML, MAG HYDROX/ALUMINUM HYD/SIMETH 30 ML, LIDOCAINE HCL 2... PO (16:37)
[2022-12-14 18:21] LABS: Hematocrit 35.6 % (42.0-52.0); Hemoglobin 11.2 g/dL (14.0-18.0)
== END 2022-12-14 18:18 ==
LOC: ANHED 15:34 → ANH3MEDSUR 20:11
PROVIDERS: Nurse Practitioner; Admitting Provider Hospitalist; Emergency Provider Emergency Medicine; PCP Family Medicine; Visit Provider Internal Medicine
DX: K29.70 Gastritis, unspecified, without bleeding (principal); M81.0 Age-related osteoporosis without current pathological fracture; G47.33 Obstructive sleep apnea (adult) (pediatric); Z99.89 Dependence on other enabling machines and devices; F41.1 Generalized anxiety disorder; R93.3 Abnormal findings on diagnostic imaging of other parts of digestive tract; K52.9 Noninfective gastroenteritis and colitis, unspecified; R09.89 Other specified symptoms and signs involving the circulatory and respiratory systems; E04.1 Nontoxic single thyroid nodule; K59.00 Constipation, unspecified; G40.909 Epilepsy, unspecified, not intractable, without status epilepticus; N20.0 Calculus of kidney; M19.90 Unspecified osteoarthritis, unspecified site; E78.5 Hyperlipidemia, unspecified; G25.81 Restless legs syndrome; Z90.49 Acquired absence of other specified parts of digestive tract; Z87.898 Personal history of other specified conditions; Z79.899 Other long term (current) drug therapy; Z79.891 Long term (current) use of opiate analgesic
CPT/HCPCS: 36415; 71275; 74174; 76536; 80053; 81003; 82728; 83605; 83690; 83735; 84443; 85014; 85018; 85025; 94660; 96361; 96374; 96375; 99285; A9270; C9113; G0378; J1170; J7030; Q9967

== ENCOUNTER 2022-12-25 00:25 | Day surgery (SDC) | payer MEDICARE, SELFPAY ==
[2022-11-07 09:16] VITALS: BMI 31.0
--- NOTE | 2022-12-13 14:20 | PC.NURSE ---
Pt denies any changes to home medications or health history since previous PAT call completed 11/07/22. Pt verbalized understanding of updated procedure date/times.
[2022-12-25 09:12] VITALS: BP 169/90; PULSE 80; RESP 16; TEMP 36.4; O2SAT 100; BMI 30.2
[2022-12-25] MEDS: LACTATED RINGERS 1,000 ML 150 ML IV CONT (09:31)
--- NOTE | 2022-12-25 09:37 | WPDHPUPDATE1 ---
History and Physical Update Update Date/Time: 12/25/22 09:37 History and Physical has been reviewed, including an updated exam of the patient. There are NO changes in the patient's condition. Risks, benefits, and alternatives have been discussed and questions answered. Patient agrees to proceed with procedure.
--- NOTE | 2022-12-25 09:42 | WPDANESEPPF ---
Anes - Initial Pre Proc Eval Procedure: Operation Date: 12/25/22 10:00 Proposed Procedures p Esophagogastroduodenoscopy & Colonoscopy - Nathen Flores MD Date/Time: 12/25/22 09:42 Surgeon: Nathen Flores MD Pre Op Diagnosis: globus sensation, diarrhea Patient Data Age: 72 Gender: M Height: 1.6 m Weight: 77.5 kg Last Vital Signs Temp 97.5 F L 12/25/22 09:12 Pulse 80 12/25/22 09:12 Resp 16 12/25/22 09:12 BP 169/90 H 12/25/22 09:12 Pulse Ox 100 12/25/22 09:12 O2 Del Method Room Air 12/25/22 09:12 Allergies Allergy/AdvReac Type Severity Reaction Status Date / Time Sulfa (Sulfonamide Allergy Unknown Unknown Verified 12/25/22 09:09 Antibiotics) Home Medications Medication Instructions Recorded Confirmed Type calcium carbonate 600 mg calcium 600 mg PO BID 05/17/20 12/25/22 History (1,500 mg) tablet (Calcium) cholecalciferol (vitamin D3) 25 125 mcg PO DAILY 05/17/20 12/25/22 History mcg (1,000 unit) capsule topiramate 100 mg tablet 100 mg PO BID 05/17/20 12/25/22 History Saccharomyces boulardii 250 mg 250 mg PO BID 10/05/22 12/25/22 History capsule (Florastor) gabapentin 300 mg capsule 300 mg PO BID 10/05/22 12/25/22 History pantoprazole 40 mg tablet,delayed 40 mg PO BID 10/05/22 12/25/22 History release (Protonix) polyethylene glycol 3350 17 gram 17 g PO DAILY PRN Constipation 10/05/22 12/25/22 History oral powder packet (Miralax) duloxetine 60 mg capsule,delayed 60 mg PO DAILY 11/07/22 12/25/22 History release dicyclomine 20 mg PO Q6H PRN colitis 12/13/22 12/25/22 History famotidine 40 mg PO HS reflux 12/13/22 12/25/22 History simethicone 125 mg PO BID GERD 12/13/22 12/25/22 History tizanidine 4 mg PO TID PRN Muscle Spasm 12/13/22 12/25/22 History calcium carb 1,200 mg-mag hydrox 10 ml PO Q6H PRN abdominal 12/14/22 12/25/22 Rx 270 mg-simeth 80 mg/10 mL oral distention #355 mL susp (Mylanta Coat-[employer]) oxycodone 5 mg tablet 5 mg PO Q8H PRN pain 2 weeks #30 12/17/22 12/25/22 Rx tabs Patient hx anesthesia problems: none Family hx anesthesia problems: none Results Review: All pre-operative results and documents have been reviewed as part of the pre-operative evaluation. [facility] Past Medical History Medical History (Updated 12/14/22 @ 13:37 by Nathen Flores MD) Abnormal CT scan, gastrointestinal tract Arthritis C. difficile colitis ED (erectile dysfunction) of organic origin RAYNA (generalized anxiety disorder) Globus sensation History of seizure disorder Following meningitis as a child Hyperlipidemia Metal bone fixation hardware in place NATHANIEL on CPAP Osteoporosis Restless legs Surgical History Surgical History History of appendectomy History of back surgery History of bilateral knee replacement (~2000) History of brain surgery History of cholecystectomy (~1987) History of hernia repair History of repair of congenital atrial septal defect (ASD) History of sinus surgery (~1994) History of tonsillectomy History of total right hip replacement S/P patent foramen ovale closure Status post lumbar spine surgery for decompression of spinal cord Status post open reduction with internal fixation of fracture (2009) Left hip intramedullary nail following trauma Family History Family History Mother Osteoporosis Breast cancer Father Malignant neoplasm of prostate Social History Social History (Updated 12/13/22 @ 23:31 by Tammy Chavez NP) Social History: He lives with his of 49 years until his spinal surgery in June of 2022. Since that time he has been in out of various rehab facilities. He and his have 2 daughters and 7 grandchildren. He is a lifelong nonsmoker and does not drink alcohol. 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 he is currently at [facility]
--- NOTE | 2022-12-25 10:03 | SUR.OPER ---
EGD: [id number] COLON: [id number]
[2022-12-25 10:27] VITALS: BP 136/91; PULSE 66; RESP 15; O2SAT 100
[2022-12-25 10:37] VITALS: BP 138/91; PULSE 73; RESP 20; O2SAT 100
[2022-12-25 10:47] VITALS: BP 166/89; PULSE 73; RESP 18; O2SAT 100
== END 2022-12-25 10:59 | disposition home or self-care (01) ==
PROVIDERS: PCP Family Medicine; Visit Provider Internal Medicine Gastroenterology
PROC: 0DJ08ZZ Inspection of Upper Intestinal Tract, Via Natural or Artificial Opening Endoscopic (ICD-10-PCS; CPT 43235; principal; 2022-12-25 10:00)
DX: R10.9 Unspecified abdominal pain (principal); K29.70 Gastritis, unspecified, without bleeding; K52.9 Noninfective gastroenteritis and colitis, unspecified; K44.9 Diaphragmatic hernia without obstruction or gangrene; M81.0 Age-related osteoporosis without current pathological fracture
CPT/HCPCS: 43239; 45378; 88305; 88342; J2704; J7120

== ENCOUNTER → 2023-01-10 12:31 | Outpatient (CLI) | payer MEDICARE, SELFPAY ==
--- NOTE | ~2023-01-10 | MR_ITS ---
EXAMINATION: MR lumbar spine wo con DATE: 01/10/2023 13:16 INDICATION: Low back pain. Bilateral leg weakness. TECHNIQUE: Magnetic resonance imaging (MRI) of the lumbar spine was performed without intravenous con trast. COMPARISON: None FINDINGS: There is 25 degrees dextroscoliosis of thoracolumbar spine. There is 3 mm anterolisthesis o f L1 on L2 and 4 mm retrolisthesis of L2 on L3, L3 on L4, and L5 on S1. There is chronic height loss of T11, T12, L1, L2, L3, L4, and L5 vertebral bodies. There are changes of vertebroplasty in L5 and T 12. There is severely decreased disc height from T11-T12 through L5-S1 with endplate remodeling. Ther e is interbody fusion at L3-L4. The distal spinal cord signal intensity is normal. The conus medullar is is at L2. The following disc levels are specifically discussed: T11-T12: The disc is bulging. There is severe bilateral facet joint osteoarthritis. There is mild rig ht and moderate left neural foraminal stenosis. There is mild central canal stenosis. T12-L1: The disc is bulging and has an annular fissure. There is severe bilateral facet joint osteoar thritis. There is mild right and moderate left neural foraminal stenosis. There is mild central canal stenosis with posterior decompression. L1-L2: The disc is bulging and has an annular fissure. There is severe bilateral facet joint osteoart hritis. There is mild bilateral neural foraminal stenosis. There is mild central canal stenosis with posterior decompression. L2-L3: The disc is bulging and has an annular fissure. There is severe bilateral facet joint osteoart hritis. There is severe right and moderate left neural foraminal stenosis. There is mild central alex l stenosis with posterior decompression. L3-L4: There is moderate bilateral facet joint hypertrophy. There is mild right and moderate left jarvis ral foraminal stenosis. There is mild central canal stenosis with posterior decompression. L4-L5: The disc is bulging and has an annular fissure. There is severe bilateral facet joint osteoart hritis. There is moderate right and severe left neural foraminal stenosis. There is mild central alex l stenosis with posterior decompression. L5-S1: The disc is bulging. There is severe bilateral facet joint osteoarthritis. There is moderate b ilateral neural foraminal stenosis. There is no central canal stenosis. IMPRESSION: 1. Severe lumbar spondylosis. 2. Thoracolumbar dextroscoliosis. Reviewed, dictated and finalized at location A.
== END ==
PROVIDERS: PCP Family Medicine
DX: R14.0 Abdominal distension (gaseous) (principal); R29.898 Other symptoms and signs involving the musculoskeletal system; M43.06 Spondylolysis, lumbar region; M41.85 Other forms of scoliosis, thoracolumbar region
CPT/HCPCS: 72148

== ENCOUNTER 2023-06-17 19:57 | Inpatient (IN) | payer MEDICARE, SELFPAY ==
[2023-06-17] VITALS (20 sets, daily range): BP systolic 56–94; BP diastolic 17–78; PULSE 100–112; RESP 12–30; TEMP 38.7–39.4; O2SAT 92–100
--- NOTE | ~2023-06-17 | CT_ITS ---
EXAMINATION: CT brain wo con DATE: 06/17/2023 22:08 INDICATION: Altered mental status. TECHNIQUE: Computed tomography (CT) of the head was performed without intravenous contrast. The mA wa s adjusted according to patient size. Iterative reconstruction technique was employed. The dose-lengt h product was 681.00 mGy-cm. COMPARISON: Head CT 09/02/2009 FINDINGS: There is chronic encephalomalacia involving right temporal lobe and right insula. There is no intracranial hemorrhage, acute infarction, or abnormal intracranial mass lesion. The ventricles ar e normal in size. The mastoid air cells are normal. There are changes of right-sided craniotomy. The orbits are normal. There is mild mucosal thickening in the paranasal sinuses. There is a 3 mm dystrop hic calcification versus chronic radiopaque foreign body in right frontal scalp. IMPRESSION: 1. Chronic encephalomalacia involving right temporal lobe and right insula. Reviewed, dictated and finalized at location A.
--- NOTE | ~2023-06-17 | XR_ITS ---
EXAMINATION: XR chest port-a-cath/central DATE: 06/17/2023 23:48 INDICATION: Central line placement. TECHNIQUE: A single frontal view of the chest was obtained. COMPARISON: Chest single view at 8:33 PM, CT abdomen and pelvis 06/18/2023 FINDINGS: There are airspace opacities at the lung bases. No pleural effusion or pneumothorax. The he art size is normal. There is an interatrial closure device. There are changes of posterior fusion pro cedure in cervicothoracic spine. A right internal jugular central venous catheter is seen with tip at the superior cavoatrial junction. IMPRESSION: 1. Central line tip at the superior cavoatrial junction. 2. Airspace opacities at the lung bases, likely atelectasis. Reviewed, dictated and finalized at location A.
--- NOTE | ~2023-06-17 | XR_ITS ---
EXAMINATION: XR retrograde pyelo w/stent LT DATE: 06/18/2023 05:50 INDICATION: Renal stone TECHNIQUE: 2 fluoroscopic images of the abdomen and pelvis were obtained during procedure performed salud Joseph. Radiologist was not present for the imaging or procedure. The amount of fluoroscopy time used during this procedure was 0.6 minutes. COMPARISON: None. FINDINGS: Images demonstrate retrograde contrast injection into the left ureter and renal collecting system. Th ere is moderate left hydronephrosis. Final images demonstrate placement of a left internal ureteral s tent with proximal tip in the left renal pelvis and the distal loop formed in the bladder. The stone at the left ureterovesicular junction seen on prior CT is not visualized and may have been extracted. Correlate with procedure note for further detail. Cholecystectomy clips in right upper quadrant. Rig ht total hip arthroplasty. Fixation screw is partially visualized left femoral head. Postoperative ch rex of likely right inguinal hernia repair. Severe lumbar spondylosis and change of prior vertebropl asty at T12 and L5. IMPRESSION: 1. Left internal ureteral stent in expected position. Prior left ureterovesicular junction stone is n ot visualized and may have been extracted. Correlate with procedure note for further detail. Reviewed, dictated and finalized at location A. IMPRESSION: 1. Left internal ureteral stent in expected position. Prior left ureterovesicul ar junction stone is not visualized and may have been extracted. Correlate with procedure note for further detail.
--- NOTE | ~2023-06-17 | XR_ITS ---
EXAMINATION: XR abdomen/kub 1V DATE: 06/18/2023 11:58 INDICATION: Abdominal distention. TECHNIQUE: A supine view of the abdomen on 2 radiographs was obtained. COMPARISON: CT abdomen and pelvis 06/18/2023 FINDINGS: There is a large volume of stool in the colon, which is distended. Surgical clips in the ri t upper quadrant are likely from cholecystectomy. There is a left internal ureteral stent in expect ed position. There are surgical clips from right inguinal hernia repair. There is a total right hip a rthroplasty. There is internal fixation of left femur. There are changes of vertebroplasty at 2 level s. IMPRESSION: 1. Large volume of stool in the colon, which is distended. Reviewed, dictated and finalized at location A.
--- NOTE | ~2023-06-17 | CT_ITS ---
EXAMINATION: CT abdomen pelvis wo con DATE: 06/18/2023 00:59 INDICATION: Sepsis. TECHNIQUE: Computed tomography (CT) of the abdomen and pelvis was performed without intravenous contr ast. Automated exposure control and iterative reconstruction technique were employed. The dose-length product was 1324.57 mGy-cm. COMPARISON: CT abdomen and pelvis 12/13/2022 FINDINGS: The visualized portions of the lung bases demonstrate mild atelectasis. There are trace ple ural effusions. The heart size is normal. There is an interatrial closure device. There are coronary artery calcifications. No pericardial effusion. There is a catheter tip at superior cavoatrial juncti on. The liver is normal. There are changes of cholecystectomy. The spleen, pancreas, and adrenal glan ds are normal. There are approximately 4 stones in right kidney measuring up to 8 mm. There are 2 sto colt in left kidney that are obscured by motion artifact measuring up to approximately 5 mm. There is moderate left hydronephrosis and hydroureter. There is a 4 mm stone in distal left ureter. The bladde r is decompressed by a Roger catheter. Stool distends the rectum. There is a large volume of stool in the colon. The appendix is not visualized. There are no pathologically enlarged lymph nodes. There i s no free intraperitoneal fluid. There is a total right hip arthroplasty. There is internal fixation of left femur. There is severe lumbar spondylosis. There are chronic fractures of multiple vertebral bodies. There are changes of vertebroplasty in T12 and L5. IMPRESSION: 1. 4 mm stone in distal left ureter with moderate left hydronephrosis and hydroureter. 2. Bilateral nonobstructing kidney stones. 3. Stool distends the rectum. Reviewed, dictated and finalized at location A. IMPRESSION: 1. 4 mm stone in distal left ureter with moderate left hydronephrosis and hydro ureter. 2. Bilateral nonobstructing kidney stones. 3. Stool distends the rectum.
--- NOTE | ~2023-06-17 | US_ITS ---
EXAMINATION: US renal BI DATE: 06/23/2023 09:10 INDICATION: follow up after stent placement TECHNIQUE: Multiple grayscale and Doppler ultrasound images of the kidneys were obtained. COMPARISON: XR abdomen and retrograde pyelogram, CT abdomen and pelvis, all from 06/18/2023 FINDINGS: The right kidney measures 11.7 x 6.7 x 4.7 cm. The left kidney measures 12.0 x 7.1 x 5.4 cm. The kidn eys demonstrate normal parenchymal echogenicity. Echogenic foci in the inferior left kidney. There is mild bilateral pelviectasis. The bladder is well distended. A right ureteral jet is present. A left ureteral jet was not identified. IMPRESSION: Left nephrolithiasis. Mild bilateral pelviectasis, unchanged on the right, and improved on the left since the prior CT. A left ureteral jet was not identified during this examination. Reviewed, dictated and finalized at location K. IMPRESSION: Left nephrolithiasis. Mild bilateral pelviectasis, unchanged on the right, and improved on the left s shy the prior CT. A left ureteral jet was not identified during this examination.
--- NOTE | ~2023-06-17 | XR_ITS ---
Portable chest x-ray Comparison: 07/26/2010 Clinical History: Sepsis Findings: There is central congestive change and probable minimal bibasilar pulmonary edema/atelecta sis. Cardiomediastinal silhouette is stable. Cervicothoracic spinal fixation hardware is present. Impression: Central congestive change and probable minimal bibasilar pulmonary edema/atelectasis. Reviewed, dictated and finalized at location . Impression: Central congestive change and probable minimal bibasilar pulmonary edema/atelec tasis.
--- NOTE | 2023-06-17 20:00 | ECG_ITS ---
Measurements Intervals [place] Rate: 109 P: 28 [place]: 170 QRS: 16 QRSD: 81 T: 10 QT: 307 QTc: 414 Interpretive Statements SINUS TACHYCARDIA BASELINE WANDER- I, III, AVF, V5 ABNORMAL ECG NO PREVIOUS ECG AVAILABLE FOR COMPARISON Electronically Signed On 06-18-2023 7:04:47 CDT by Caleb Aragon D.O.
--- NOTE | 2023-06-17 20:11 | ED.GENADULT ---
HPI - General Adult General Chief complaint: Fever Stated complaint: UNRESPONSIVE History of Present Illness HPI narrative: Patient brought to the emergency department by EMS from home. He has normal alert and oriented x4 but bedbound. Today he is unresponsive even to painful stimuli. Hypotensive and febrile prior to arrival. Family told EMS the patient had a urinary tract infection the last time he presented like this. EMS blood pressure improved from 70 systolic to 95 systolic just prior to arrival but now 65/45. Patient diaphoretic and unresponsive. Abdomen soft and lungs clear to auscultation. Patient is also tachycardic. Related Data Home Medications Medication Instructions Recorded Confirmed calcium carbonate 600 mg calcium 600 mg PO BID 05/17/20 01/17/23 (1,500 mg) tablet (Calcium) cholecalciferol (vitamin D3) 25 125 mcg PO DAILY 05/17/20 01/17/23 mcg (1,000 unit) capsule topiramate 100 mg tablet 100 mg PO BID 05/17/20 01/17/23 gabapentin 300 mg capsule 300 mg PO BID 10/05/22 01/17/23 pantoprazole 40 mg tablet,delayed 40 mg PO BID 10/05/22 01/17/23 release (Protonix) duloxetine 60 mg capsule,delayed 60 mg PO DAILY 11/07/22 01/17/23 release simethicone 125 mg PO BID GERD 12/13/22 01/17/23 celecoxib 100 mg capsule 100 mg PO BID 01/17/23 01/17/23 Allergies Allergy/AdvReac Type Severity Reaction Status Date / Time Sulfa (Sulfonamide Allergy Unknown Unknown Verified 01/17/23 09:22 Antibiotics) Review of Systems Review of Systems: Review of systems unobtainable due to critical presentation PMFSH Past Medical History Medical History (Updated 12/14/22 @ 13:37 by Nathen Flores MD) Abnormal CT scan, gastrointestinal tract Arthritis C. difficile colitis ED (erectile dysfunction) of organic origin RAYNA (generalized anxiety disorder) Globus sensation History of seizure disorder Following meningitis as a child Hyperlipidemia Metal bone fixation hardware in place NATHANIEL on CPAP Osteoporosis Restless legs Surgical History Surgical History History of appendectomy History of back surgery History of bilateral knee replacement (~2000) History of brain surgery History of cholecystectomy (~1987) History of hernia repair History of repair of congenital atrial septal defect (ASD) History of sinus surgery (~1994) History of tonsillectomy History of total right hip replacement S/P patent foramen ovale closure Status post lumbar spine surgery for decompression of spinal cord Status post open reduction with internal fixation of fracture (2009) Left hip intramedullary nail following trauma Family History Family History Mother Osteoporosis Breast cancer Father Malignant neoplasm of prostate Social History Social History (Updated 12/13/22 @ 23:31 by Tammy Chavez NP) Social History: He lives with his of 49 years until his spinal surgery in June of 2022. Since that time he has been in out of various rehab facilities. He and his have 2 daughters and 7 grandchildren. He is a lifelong nonsmoker and does not drink alcohol. 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 he is currently at [facility] code status : full code Smoking status: Never smoker Second hand tobacco smoke exposure: No Alcohol intake: never Substance use: never Substance use type: does not use Lack of Transportation: No Lack of Food: Never True Current Housing: I Have Housing Concerned About Future Housing: No Difficulty Paying Gas/Electric Bills: No Difficulty Paying for Meds: No Currently Unemployed: No Education: High School Diploma/GED Difficulty w/ Childcare or Family Care: No Living arrangements: with family Occupation/Education: retired Gender identity (if verbalized by the patient): Male Sexual Orientation (if Verbalized by the Patient): S
[2023-06-17] MEDS: SODIUM CHLORIDE 0.9% IV 1,000 ML 999 ML IV CONT ×3 (20:21→23:48)
[2023-06-17] MEDS: ACETAMINOPHEN 650 MG SUPPOSITORY RECTAL (20:23)
[2023-06-17 20:32] LABS: Basophils Percent Auto 0.2 % (0.2-1.2); Eosinophils Percent Auto 0.1 % (0-4.4); Hematocrit 28.5 % (42.0-52.0); Hemoglobin 8.7 g/dL (14.0-18.0); Immature Granulocyte Absolute 0.13 K/mm3 (0.00-0.031); Immature Granulocyte Percent A 0.8 % (0-0.5); Lymphocytes Absolute Auto 0.52 K/mm3 (0.9-3.2); Lymphocytes Percent Auto 3.2 % (18.3-44.2); Mean Corpuscular HGB Conc 30.5 g/dl (32-36); Mean Corpuscular Hemoglobin 28.5 pg (26-34); Mean Corpuscular Volume 93.4 fl (80-100); Mean Platelet Volume 8.6 fl (7.4-10.4); Monocytes Absolute Auto 0.1 K/mm3 (0.1-0.6); Monocytes Percent Auto 0.8 % (2.6-8.5); Neutrophils Absolute Auto 15.4 K/mm3 (1.3-6.7); Neutrophils Percent Auto 94.9 % (45.5-73.1); Nucleated Red Blood Cells Perc 0.2 % (0.0-0.2); Platelet Count Result 271 k/mm3 (150-375); Red Blood Count 3.05 M/mm3 (4.6-6.20); Red Cell Distribution Width 15.4 % (11.5-14.5); White Blood Count 16.3 K/mm3 (4.5-10.0)
[2023-06-17] MEDS: SODIUM CHLORIDE 0.9% IV 500 ML 999 ML IV CONT (20:41)
[2023-06-17 20:43] LABS: INR 1.9
[2023-06-17 20:44] LABS: Partial Thromboplastin Time 39.6 SECONDS (22.3-36.8)
[2023-06-17 20:54] LABS: Alanine Aminotransferase 24 U/L (6-50); Albumin Level 3.2 g/dL (3.5-5.1); Alkaline Phosphatase 127 U/L (38-126); Anion Gap 13 mmol/L (8-16); Aspartate Amino Transferase 42 U/L (17-59); Bilirubin,Total 0.6 mg/dL (0.2-1.3); Blood Urea Nitrogen 29 mg/dL (9-20); CRP 6.4 mg/dL (<1.0); Calcium 8.7 mg/dL (8.4-10.2); Carbon Dioxide 17 mmol/L (22-30); Chloride 108 mmol/L (98-107); Estimated CRCL calculation 37 ml/min; Estimated Glomerular Filt Rate 37; Glucose 94 mg/dL (65-110); Sodium 138 mmol/L (137-145)
[2023-06-17 20:56] LABS: Lactic Acid Reflex 4.2 mmol/L (0.7-2.0)
[2023-06-17 22:05] LABS: Appearance Urine Turbid (Clear); Bacteria Urine 4+ /hpf; Bilirubin Urine 1+ (Negative); Blood Urine 3+ (Negative); Color Urine Dark Yellow (Yellow); Glucose Urine UA Negative (Negative); Ketones Urine Trace mg/dL (Negative); Leukocyte Esterase Ur 3+ LEU/UL (Negative); Mucus Urine Present /lpf; Need Manual Microscopic Reviewed; Nitrate Urine Negative (Negative); Non Pathogenic Casts >20; Protein Urine 3+ mg/dL (Negative); RBC Urine 0-2 /hpf (0-2); Squamous Epithelial Cell Urine Occasional /hpf (Few); WBC Urine >100 /hpf
[2023-06-17 22:06] LABS: Add Urine Microscopic? YES
[2023-06-17 22:19] LABS: Troponin I 0.232 ng/mL (0.000-0.034)
[2023-06-17 22:26] LABS: Influenza A QL RT-PCR Negative (Negative); Influenza B QL RT-PCR Negative (Negative); RSV RNA, RT-PCR Negative (Negative); SARS-CoV-2 RNA PCR Negative (Negative)
[2023-06-17 23:30] LABS: Reflex Lactic Acid Yes or No Add Lactic
[2023-06-17] MEDS: NOREPINEPHRINE 8 MG/D5W 250 ML 8 MG/250 ML BAG 9.38 MG IV CONT (23:58)
[2023-06-18] VITALS (61 sets, daily range): BP systolic 62–137; BP diastolic 32–110; PULSE 81–131; RESP 15–39; TEMP 36.5–39.4; O2SAT 90–100; BMI 25.3
[2023-06-18 00:01] LABS: Lactic Acid 3.5 mmol/L (0.7-2.0)
[2023-06-18 00:07] LABS: Alveolar/Arterial O2 Gradient 69.9 mmHg; Base Excess ABG -7.4 mEq/l (+/-2.0); Fractional Inspired Oxygen 21 %; HCO3 ABG 14.2 mEq/l (22.0-26.0); Oxygen Content ABG 11.9 %vol (16.0-22.0); Oxygen Saturation ABG 92.9 % (95.0-100.0); Oxyhemoglobin 90.9 % THb (90.0-100.0); PO2 ABG 57.4 mmHg (80.0-100.0); PO2 FiO2 Ratio Arterial Blood 2.73 %; Total Hemoglobin 9.3 g/dL (12.0-18.0); pH ABG 7.499 (7.350-7.450)
[2023-06-18 00:08] LABS: Device ROOM AIR; Modified Allen's Test Unable to perform; PCO2 ABG 18.7 mmHg (35.0-45.0); Site Drawn RIGHT RADIAL
--- NOTE | 2023-06-18 00:40 | PM.IMHP ---
H&P: HPI History of Present Illness Date/Time: 06/18/23 00:40 Chief Complaint: Unresponsive Narrative: 72-year-old male with a past medical history of spinal stenosis with subsequent functional quadriplegia due to surgical intervention for spinal stenosis, seizure disorder, brain surgery with resection of seizure focus, obstructive sleep apnea and kidney stones who presented to the ER from [facility] due to altered mental status. Source of information is from EMS report, ER report, past medical records and family report. The patient's daughters Janina and Adrienne provide the majority of the history. His daughter's report that the patient's memory has been slipping a little here and there but he has been having increasing episodes of confusion ever since his surgery for cervical spinal stenosis May 2023. 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 He seemed his usual self but may be a little bit more confused. group home staff reported to them that the patient has slept more today when they checked on the patient at the halfway is temperature was greater than 103. He was hard to arouse. The patient ended up being only arousable to painful stimuli on arrival to the ER. They state that the patient does get urinary tract infections and a intermittent basis and they think he had a UTI a few months back and 1 of the rehab facilities. He is not known to have a history of BPH. They state that he has never had any urinary retention even with his recent surgeries. The rehab facilities have been bladder scanning him and they have never told him that he has retaining. As far as I know the patient has been having regular bowel movements. When the patient arrived to the ICU and patient was rolled he did have a small amount of thick dark almost black appearing stools. In the ER the patient had received 3 L in fluid bolus and was still hypotensive. He was also tachycardic and tachypneic. He had had minimal to no urine output despite placement of a Roger catheter. The ER provider placed a right IJ CVC. Patient was started on Levophed at 10 mcg with improvement in his blood pressure up to the 100s. The patient's family reports that his baseline blood pressures are around 110/80. The patient's UA in the ER was consistent with UTI. CT scan was performed in the ER but results were still pending when he arrived to the ICU. CT scan was reviewed by myself in demonstrated large stool burden. The stat read radiologist also noted a 4 mm left UVJ stone with [id number] hydronephrosis. They did not feel that the patient had evidence of a bowel obstruction. The patient initially receive Rocephin in the ER but antibiotic coverage was broadened to meropenem given the patient's clinical condition. Review of Systems Review of Systems: ROS unobtainable: Yes unobtainable due to mental status PMFSH Past Medical History Medical History (Updated 06/18/23 @ 04:10 by Annette Jarrell DO) Arthritis C. difficile colitis 12/2022 ED (erectile dysfunction) of organic origin RAYNA (generalized anxiety disorder) Gastritis Globus sensation Grade II internal hemorrhoids History of seizure disorder Following meningitis as a child Hyperlipidemia Lumbar stenosis Metal bone fixation hardware in place NATHANIEL on CPAP Osteoporosis Restless leg syndrome Spinal stenosis in cervical region Surgical History Surgical History (Updated 06/18/23 @ 03:40 by Annette Jarrell DO) H/O cervical spine surgery (04/2023) History of appendectomy History of back surgery History of bilateral knee replacement (~2000) History of brain surgery Right temporal craniotomy with 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 Performed by Dr. Estrada History of esophagogastroduodenoscopy (EGD) (12/2022) Hiatal hernia and gastrit
[2023-06-18 01:02] LABS: Troponin I 0.267 ng/mL (0.000-0.034)
[2023-06-18] MEDS: SODIUM BICARBONATE 8.4% 50 MEQ/50 ML SYRINGE IV PUSH (01:15)
[2023-06-18] MEDS: MEROPENEM 1 GM/NS 100 ML 1 GM/100 ML BAG IVPB ×3 (01:17→21:53)
[2023-06-18] MEDS: SODIUM BICARBONATE 8.4% 150 MEQ in DEXTROSE 5% 1,000 ML 950 ML 100 MEQ IV CONT ×2 (01:22→13:03)
--- NOTE | 2023-06-18 02:10 | ADMGEN ---
This patient, Aly Cervantes, was admitted to Intensive Care Unit-5. Patient/family oriented to hospital policies and general routines including ID bracelet, bed and alarms, visiting hours, pain management, procedures, bathroom and other care routines, personal items, smoking policy, room service/diet, and visiting hours. Information on how to activate the Rapid Response Team has been discussed. Patient/Family are encouraged to report perceived risks to care and to ask questions if they do not understand what they are told or what they should do.
--- NOTE | 2023-06-18 03:54 | WPDANESEPP ---
Anes - Eval Pre Procedure Procedure: cystoscopy with stent Date/Time: 06/18/23 03:54 Surgeon: dominique Preop Diagnosis: obstructing stone Pre Op Diagnosis: Sepsis Patient Data Age: 72 Gender: M Height: 1.8 m Weight: 82.5 kg Last Vital Signs Temp 38.8 C H 06/18/23 02:20 Pulse 130 H 06/18/23 03:40 Resp 39 H 06/18/23 03:40 BP 78/39 L 06/18/23 02:33 Pulse Ox 95 06/18/23 03:40 O2 Del Method BiPAP 06/18/23 03:40 Allergies Allergy/AdvReac Type Severity Reaction Status Date / Time Sulfa (Sulfonamide Allergy Unknown Unknown Verified 01/17/23 09:22 Antibiotics) Home Medications Medication Instructions Recorded Confirmed Type gabapentin 300 mg capsule 400 mg PO TID idiopathic 10/05/22 06/18/23 History peripheral autonomic neuropathy duloxetine 60 mg capsule,delayed 60 mg PO DAILY 11/07/22 06/18/23 History release Thera M 1 tab-cap PO QAM 06/18/23 06/18/23 History acetaminophen 325 mg tablet 650 mg PO Q6H 06/18/23 06/18/23 History apixaban 5 mg tablet (Eliquis) 5 mg PO BID 06/18/23 06/18/23 History aripiprazole 5 mg tablet 5 mg PO DAILY 06/18/23 06/18/23 History baclofen 10 mg tablet 5 mg PO DAILY 06/18/23 06/18/23 History baclofen 10 mg tablet 10 mg PO Q12H 06/18/23 06/18/23 History bisacodyl 10 mg RECTAL DAILY PRN Constipation 06/18/23 06/18/23 History calcium carbonate 500 mg-vitamin 1 tablet PO QAM 06/18/23 06/18/23 History D3 5 mcg (200 unit) tablet (Oyster Shell Calcium-Vitamin D3) cyanocobalamin (vitamin B-12) 1,000 mcg PO DAILY 06/18/23 06/18/23 History 1,000 mcg tablet (Vitamin B-12) denosumab 1 ml subcut [id number] 06/18/23 06/18/23 History docusate sodium 283 mg enema 283 mg RECTAL QPM 06/18/23 06/18/23 History famotidine 20 mg tablet 20 mg PO Q12H 06/18/23 06/18/23 History ferrous sulfate 325 mg (65 mg 325 mg PO DAILY 06/18/23 06/18/23 History iron) tablet fluticasone propionate 50 1 spray intranasal Q12H 06/18/23 06/18/23 History mcg/actuation nasal spray,suspension melatonin 3 mg tablet 3 mg PO QHS PRN difficulty sleeping 06/18/23 06/18/23 History polyethylene glycol 3350 17 gram 17 g PO DAILY 06/18/23 06/18/23 History oral powder packet sennosides 8.6 mg tablet 8.6 mg PO QAM 06/18/23 06/18/23 History tizanidine 2 mg tablet 2 mg PO BID PRN Muscle Spasm 06/18/23 06/18/23 History topiramate 100 mg tablet 100 mg PO QAM 06/18/23 06/18/23 History Laboratory Tests 06/17/23 06/17/23 06/17/23 20:25 20:42 23:41 WBC 16.3 H K/mm3 (4.5-10.0) RBC 3.05 L M/mm3 (4.6-6.20) Hgb 8.7 L g/dL (14.0-18.0) Hct 28.5 L % (42.0-52.0) MCV 93.4 fl (80-100) MCH 28.5 pg (26-34) MCHC 30.5 L g/dl (32-36) RDW 15.4 H % (11.5-14.5) Plt Count 271 k/mm3 (150-375) MPV 8.6 fl (7.4-10.4) Immature Gran % (Auto) 0.8 H % (0-0.5) Neut % (Auto) 94.9 H % (45.5-73.1) Lymph % (Auto) 3.2 L % (18.3-44.2) Ritchie % (Auto) 0.8 L % (2.6-8.5) Eos % (Auto) 0.1 % (0-4.4) Baso % (Auto) 0.2 % (0.2-1.2) Lymph # (Auto) 0.52 L K/mm3 (0.9-3.2) Ritchie # (Auto) 0.1 K/mm3 (0.1-0.6) Eos # (Auto) 0.0 K/mm3 (0-0.3) Baso # (Auto) 0.0 K/mm3 (0.0-0.1) Abs Immat Gran (auto) 0.13 H K/mm3 (0.00-0.031) Absolute Neuts (auto) 15.4 H K/mm3 (1.3-6.7) Absolute Nucleated RBC 0.0 K/mm3 (0.0-0.012) Nucleated RBC % 0.2 % (0.0-0.2) PT 23.0 H Seconds (11.1-14.7) INR 1.9 APTT 39.6 H SECONDS (22.3-36.8) Puncture Site ABG pH ABG pCO2 ABG pO2 ABG PO2/FiO2 Ratio ABG HCO3 ABG O2 Saturation ABG O2 Content ABG Base Excess A-a Gradient Oxyhemoglobin Total Hemoglobin O2 Deli
--- NOTE | 2023-06-18 04:26 | WPDURCON ---
Assessment and Plan Assessment and plan (1) Acute metabolic encephalopathy: Code(s): G93.41 - Metabolic encephalopathy Status: Acute (2) Septic shock: Code(s): A41.9 - Sepsis, unspecified organism; R65.21 - Severe sepsis with septic shock Status: Acute (3) Left ureteral stone: Code(s): N20.1 - Calculus of ureter Status: Acute Plan 72-year-old gentleman with septic shock likely due to urinary origin and obstructing left distal ureteral stone. -patient to be taken emergently to the operating room for cystoscopy and left ureteral stent insertion. Risks, benefits, alternatives discussed with patient family -daughter Adrienne was a nurse. Understand that deferred stone management will be necessary. Risks including worsening infection, inability to place stent, injury to other structures, need for additional operations. Patient's family understands the critical nature of the patient's illness and need for emergent intervention and that emergent intervention with ureteral stenting may not alleviate the patient's septic shock . Patient will need continued intensive care with pressure support and antibiotics. Urology Consult Note HPI Date Seen: 06/18/23 Requesting Physician: Annette Jarrell DO Primary Care Provider: Chloe Perez MD Consult Narrative Narrative: Aly Cervantes is a 72 year old male who was a jail resident. He was brought in unresponsive to emergency department. He was found to have urinary tract infection and sepsis. Patient was hypotensive tachycardic and febrile. CT scan imaging revealed an obstructing left ureteral stone with hydronephrosis. Urology was called emergently for stent insertion after CT scan findings PMFSH Past Medical History Medical History (Updated 06/18/23 @ 04:30 by Alida Joseph MD) Arthritis C. difficile colitis 12/2022 ED (erectile dysfunction) of organic origin RAYNA (generalized anxiety disorder) Gastritis Globus sensation Grade II internal hemorrhoids History of seizure disorder Following meningitis as a child Hyperlipidemia Left ureteral stone Lumbar stenosis Metal bone fixation hardware in place NATHANIEL on CPAP Osteoporosis Restless leg syndrome Spinal stenosis in cervical region Surgical History Surgical History (Updated 06/18/23 @ 03:40 by Annette Jarrell DO) H/O cervical spine surgery (04/2023) History of appendectomy History of back surgery History of bilateral knee replacement (~2000) History of brain surgery Right temporal craniotomy with 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 Performed by Dr. Estrada History of esophagogastroduodenoscopy (EGD) (12/2022) Hiatal hernia and gastritis History of hernia repair History of repair of congenital atrial septal defect (ASD) History of sinus surgery (~1994) History of tonsillectomy History of total right hip replacement S/P patent foramen ovale closure Status post lumbar spine surgery for decompression of spinal cord Status post open reduction with internal fixation of fracture (2009) Left hip intramedullary nail following trauma Family History Family History Mother Osteoporosis Breast cancer Father Malignant neoplasm of prostate Social History Social History (Updated 06/18/23 @ 03:47 by Annette Jarrell DO) Social History: He was living with his of 50 years. He has been in out of various rehab facilities and long-term facility since his lumbar surgery in 2021 and has been persistently in a rehab facility since his cervical spine surgery in April or May of 2022. He and his have 2 daughter and 7 grandchildren. He is a former smoker. He does not drink alcohol. 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 He is currently at [facility] Code status: DNR/DNI
--- NOTE | 2023-06-18 04:28 | P.PNAN_ITS ---
Anes - Eval Final PreProcedure Day of Procedure 06/18/23 04:28 Patient weight: overweight Heart: tachycardia Lungs: clear to auscultation Airway: Mallampati scale class III Neurological: lethargic Last oral intake: >/= 8 hours ASA classification: IV Emergent: yes Anesthetic plan: proceed Anesthesia type and monitoring: general GIVS and standard monitoring Results Review: All pre-operative results and documents have been reviewed as part of the pre- operative evaluation. Informed Consent: The patient's anesthetic plan and its attendant risks and benefits were discussed with the patient/family/POA. Questions were solicited and answers provided to the satisfaction of the patient/family/POA.
[2023-06-18] MEDS: LIDOCAINE HCL 2% GEL UROJET 10 ML PKG MUCOUS MEM (04:38)
--- NOTE | 2023-06-18 04:53 | P.OP_ITS ---
Procedure Note - Detailed Date of Procedure 06/18/23 Pre-op Diagnosis Sepsis, left ureteral stone Post-op Diagnosis Same Procedure Performed Cystoscopy, left ureteral stent insertion, left retrograde pyelogram Surgeon Alida Joseph MD Anesthesia MAC Findings -severe left hydronephrosis -foul-smelling, purulent urine from left kidney Description of Procedure Informed consent was obtained from the patient's daughter. Patient taken the operating room. He was given preoperative IV antibiotics in the emergency room in ICU. He was induced with anesthesia was placed in dorsal lithotomy position. He was prepped draped in the normal sterile fashion. Twenty-two F cystoscope was inserted through the urethra into the bladder. The bladder had changes consistent with previous Roger catheter bladder wall irritation. There was no tumors noted. The patient was awake and voiding and therefore we were unable to completely fill the bladder for thorough inspection. The left ureteral orifice was identified and a wire was advanced. Over the wire we advanced a 5 F open- ended catheter and a retrograde pyelogram was performed showing severe left hydronephrosis. We were ultimately the wire into the renal pelvis and then advancement of the 5 F catheter into the renal pelvis. Urine was removed from the left collecting system that was foul-smelling and purulence -this urine was sent for culture. We then replaced the wire and over the wire placed a 6 F variable length stent curl in the renal pelvis the curl in the bladder. Bladder was then emptied with a 16 F Roger catheter. Patient was then returned to the ICU in critical but stable condition Implants 6 F JJ stent Complications No immediate complications Condition Critical Disposition PACU
[2023-06-18 05:24] LABS: Hematocrit 25.1 % (42.0-52.0); Hemoglobin 7.8 g/dL (14.0-18.0); Mean Corpuscular HGB Conc 31.1 g/dl (32-36); Mean Corpuscular Hemoglobin 28.6 pg (26-34); Mean Corpuscular Volume 91.9 fl (80-100); Mean Platelet Volume 8.2 fl (7.4-10.4); Platelet Count Result 202 k/mm3 (150-375); Red Blood Count 2.73 M/mm3 (4.6-6.20); Red Cell Distribution Width 15.4 % (11.5-14.5)
[2023-06-18 05:33] LABS: Magnesium 1.8 mg/dL (1.6-2.3); Phosphorus 3.3 mg/dL (2.5-4.5)
[2023-06-18 05:44] LABS: Lactic Acid Reflex 4.4 mmol/L (0.7-2.0)
[2023-06-18 05:50] LABS: Alanine Aminotransferase 37 U/L (6-50); Albumin Level 2.9 g/dL (3.5-5.1); Alkaline Phosphatase 100 U/L (38-126); Anion Gap 15 mmol/L (8-16); Aspartate Amino Transferase 43 U/L (17-59); Bilirubin,Total 0.5 mg/dL (0.2-1.3); Blood Urea Nitrogen 32 mg/dL (9-20); Calcium 7.8 mg/dL (8.4-10.2); Carbon Dioxide 15 mmol/L (22-30); Chloride 110 mmol/L (98-107); Estimated CRCL calculation 32 ml/min; Estimated Glomerular Filt Rate 31; Glucose 85 mg/dL (65-110); Sodium 140 mmol/L (137-145)
[2023-06-18 06:00] LABS: Band Neutrophils Percent 17 % (0-6); Monocytes Absolute Manual 0.18 K/mm3 (0.1-0.90); Monocytes Percent Manual 1 % (3-9); Neutrophils Absolute Manual 17.82 K/mm3 (1.3-6.7); Neutrophils Percent Manual 82 % (46-73); Total Cells Counted 100
[2023-06-18 06:01] LABS: Anisocytosis 1+ (NORMAL); Burr Cells 1+ (NORMAL); Platelet Estimate Adequate (Adequate); Schistocytes Rare (NORMAL)
[2023-06-18 08:31] LABS: Alveolar/Arterial O2 Gradient 42.6 mmHg; Base Excess ABG -5.9 mEq/l (+/-2.0); Carboxyhemoglobin 0.2 % THb (0-2.0); Fractional Inspired Oxygen 21 %; HCO3 ABG 16.1 mEq/l (22.0-26.0); Methemoglobin ABG 0.3 %THb (0-1.5); Oxygen Content ABG 12.4 %vol (16.0-22.0); Oxyhemoglobin 95.3 % THb (90.0-100.0); PO2 ABG 81.3 mmHg (80.0-100.0); PO2 FiO2 Ratio Arterial Blood 3.87 %; Reduced Hemoglobin 4.2 %THb (0-5.0); Total Hemoglobin 9.2 g/dL (12.0-18.0); pH ABG 7.491 (7.350-7.450)
[2023-06-18 08:35] LABS: Device NON-INVASIVE VENT; PCO2 ABG 21.6 mmHg (35.0-45.0); Site Drawn LEFT BRACHIAL
[2023-06-18 08:36] LABS: Non-Invasive Expiratory Pressure 4 CMH2O; Non-Invasive Inspiratory Pressure 8 CMH2O; Non-Invasive Vent Rate 12 /MIN
[2023-06-18 09:11] LABS: Lactic Acid Reflex 3.6 mmol/L (0.7-2.0)
--- NOTE | 2023-06-18 10:41 | PM.IMPN ---
Progress Note: A&P Assessment and Plan (1) Septic shock: Code(s): A41.9 - Sepsis, unspecified organism; R65.21 - Severe sepsis with septic shock Status: Acute Assessment and Plan: Patient brought to the hospital because he was unresponsive. He is found have septic shock. He has been placed on Levophed with benefit. Related to UTI and obstructing uropathy. Patient is DNR. Lactic acid level has climbed to 4.4 again. White count climbing. Metabolic acidosis worsening probably related to lactic acid. Nursing, however, has been able to wean Levophed down. Blood and urine cultures are pending. Continue broad-spectrum IV antibiotics. continue supportive care. (2) Left ureteral stone: Code(s): N20.1 - Calculus of ureter Status: Acute Assessment and Plan: Head CT shows 4 mm stone in the distal left ureter with moderate left hydronephrosis and hydroureter. Also has bilateral nonobstructing kidney stones. Patient was taken to the OR by Urology and underwent cystoscopy with left ureteral stent insertion and left retrograde pyelogram. They found severe left hydronephrosis and foul smelling purulent urine from the left kidney. Cultures pending. Continue IV antibiotics. Consider emphysematous pyelonephritis if his condition worsens. (3) UTI (urinary tract infection): Qualifiers: Urinary tract infection type: site unspecified Hematuria presence: without hematuria Qualified Code(s): N39.0 - Urinary tract infection, site not specified Code(s): N39.0 - Urinary tract infection, site not specified Status: Acute Assessment and Plan: UA noted and consistent with UTI. Continue IV antibiotics. Follow-up on cultures. (4) Acute kidney injury: Code(s): N17.9 - Acute kidney failure, unspecified Status: Acute Assessment and Plan: Patient has a normal baseline creatinine function. Creatinine 1.8 on admission has climbed to 2.1. Continue to monitor urine output, renal function and electrolytes. Continue IV fluids. Check TCK (5) Acute lactic acidosis: Code(s): E87.21 - Acute metabolic acidosis Status: Acute Assessment and Plan: Lactic acid level was 4.2 on admission. Improved initially but now is kind of 4.4. His metabolic acidosis has worsened although his pH is alkalotic and he has what looks like a respiratory alkalosis. Suspect this is compensatory. He is also on sodium bicarb with IV fluids. Anion gap remains normal. Continue to monitor lactic acid. Continue IV fluids with sodium bicarb. (6) Compensated metabolic acidosis: Code(s): E87.20 - Acidosis, unspecified Status: Acute Assessment and Plan: As above (7) Elevated troponin: Code(s): R77.8 - Other specified abnormalities of plasma proteins Status: Acute Assessment and Plan: Troponin elevated to 0.27 but flat. EKG showing no significant ST-T wave changes to suggest ischemia. Suspect elevated troponins related to septic shock and not ACS. Check Echo when improved (8) Acute on chronic anemia: Code(s): D64.9 - Anemia, unspecified Status: Acute Assessment and Plan: Patient has a mild chronic anemia with baseline hemoglobin mostly in the 10-11 range. Hemoglobin admission however was 8.7 has dropped to 7.8 probably related to IV fluids. Unclear why his hemoglobin was low on admission however. No obvious evidence of blood loss by CT scan. Consider occult GI bleeding. He is on Eliquis chronically. He is also on iron to suggest that he has underlying iron deficiency chronically. Continue monitor H&H. Transfuse as necessary (9) Acute metabolic encephalopathy: Code(s): G93.41 - Metabolic encephalopathy Status: Acute Assessment and Plan: Patient was found unresponsive and brought to the emergency room for evaluation. CT the brain shows chronic encephalomalacia involving the right tempora
[2023-06-18] MEDS: NOREPINEPHRINE 8 MG/D5W 250 ML 8 MG/250 ML BAG 22.5 MG IV CONT (11:02)
[2023-06-18] MEDS: CENTRAL LINE FLUSH 10 ML IV PUSH ×3 (11:03→23:26)
[2023-06-18 11:43] LABS: Creatine Kinase 274 U/L (55-170)
--- NOTE | 2023-06-18 11:51 | WPDCNINT ---
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, patient's urine was foul smelling and purulent -continue Levophed, maintain MAP > 65 mmHg transfer adequate end organ perfusion -started on meropenem, will add vancomycin (06/18) -06/18: Blood cultures pending -06/18: Urine cultures growing Proteus mirabilis, sensitivities pending -patient received adequate IV fluids, lactic acid is trending down, will continue to monitor (2) Pyelonephritis: Code(s): N12 - Tubulo-interstitial nephritis, not specified as acute or chronic Status: Acute Assessment and Plan: Patient with pyelonephritis and left ureteral stone with hydronephrosis and hydroureter, status post left ureteral stent -continue antibiotics (3) Left ureteral stone: Code(s): N20.1 - Calculus of ureter Status: Acute Assessment and Plan: As above (4) Acute kidney injury: Code(s): N17.9 - Acute kidney failure, unspecified Status: Acute Assessment and Plan: Patient's baseline creatinine is 0.7-1.0 (12/2022) -creatinine this morning is 2.10 -maintain mean arterial pressures greater than 65 mm Hg for adequate renal perfusion -urine output is improving -lactic acid is trending down -continue to monitor renal function, urine output and electrolytes (5) Acute metabolic encephalopathy: Code(s): G93.41 - Metabolic encephalopathy Status: Acute Assessment and Plan: Gradually improving, likely related to underlying infection -will continue to monitor (6) Anemia: Code(s): D64.9 - Anemia, unspecified Status: Acute Assessment and Plan: Patient's hemoglobin is 7.8 this morning, patient has been on Eliquis at home along with famotidine, ferrous sulfate -INR was 1.9 on admission which is likely related to Eliquis -will check iron panel, vitamin B12 and folic acid -stool for occult blood -will add Protonix IV q.12 hours Plan DVT prophylaxis: SCDs , holding Eliquis to patient's take p.o. Stress ulcer prophylaxis: Protonix IV q.12 hours Nutrition: NPO for now, will start diet when he is more awake Code Status: Do not resuscitate Critical Care Time Spent: 51 minutes Discussed with Adrienne and Janina, patient's daughters and updated with patient's condition and plan of care. They are aware that patient is on Levophed which is being gradually weaned. I did explain to them that patient did have a stone in his left ureter, guarded the left ureteral stent, patient did have purulent and foul-smelling urine once the stent was placed. Patient is on appropriate antibiotic, awaiting cultures. I answered all questions. They did confirm that patient is a DNR, and they do not want any heroic measures for him. Due to a high probability of clinically significant, life threatening deterioration, the patient required my highest level of preparedness to intervene emergently and I personally spent this critical care time directly and personally managing the patient. This critical care time included obtaining a history; examining the patient; pulse oximetry; ordering and review of studies; arranging urgent treatment with development of a management plan; evaluation of patient's response to treatment; frequent reassessment; and discussions with other providers. It was exclusive of separately billable procedures and treating other patients and teaching time. Please see Assessment and Plan section and the rest of the note for further information on patient assessment and tr
[2023-06-18 11:53] LABS: Reflex Lactic Acid Yes or No Add Lactic
--- NOTE | 2023-06-18 12:38 | WPDUROPN2 ---
Progress Note: A&P Assessment and Plan (1) Pyelonephritis: Code(s): N12 - Tubulo-interstitial nephritis, not specified as acute or chronic Status: Acute Assessment and Plan: Continue Vancomycin, tailor to culture sensitivity. (2) Septic shock: Code(s): A41.9 - Sepsis, unspecified organism; R65.21 - Severe sepsis with septic shock Status: Acute (3) Kidney calculus: Code(s): N20.0 - Calculus of kidney Status: Acute (4) Left ureteral stone: Code(s): N20.1 - Calculus of ureter Status: Acute Assessment and Plan: Stent in place, will await improvement of overall status and treatment of infection and then plan an outpatient surgery to remove stone. No further surgical intervention is needed at this time. keep [place] in place until I&O is no longer needed, then a voiding trial can be done. Will watch from a distance. Creatinine will likely improve now that stent has been placed. JOHANNY should be done in a few days to ensure hydro has resolved. Subjective Subjective Date/Time Seen: 06/18/23 12:38 Post Op day: 1 Interval history: Patient had Cystoscopy, left stent placement, left retrograde pyelogram early this morning with Dr. Joseph. He is stable in the ICU this morning, with two of his daughters at the bedside. He is unable to speak d/t being on a BI-Pap and HYDABURG and was hard to arouse d/t being lethargic. Review of Systems Review of Systems: ROS unobtainable: Yes unobtainable due to medical condition Exam Const: General: lethargic Resp: Effort & Inspection: labored and tachypneic Cardio: Rate: tachycardic GI: GI Palp: Yes Soft to palpation and No Tenderness to palpation present (GI) : General: Yes no CVA tenderness Urinary Catheter: Urinary Catheter: patent and draining, urine cloudy and urine red Extrem: Right lower extremity: no edema Left lower extremity: no edema Objective Data Vital Signs Vital Signs: Vital Signs - 24 hr 06/17/23 19:56 06/17/23 20:25 06/17/23 20:27 Temperature 103 F H 102.9 F H Pulse Rate 111 H 105 H 106 H Respiratory Rate 12 30 H 21 H Blood Pressure 65/45 L 81/51 L Pulse Oximetry 94 97 Oxygen Delivery Room Air Oxygen Flow Rate Fraction of Inspired Oxygen 06/17/23 20:30 06/17/23 20:31 06/17/23 20:51 Temperature 103.0 F H 103.0 F H 103.0 F H Pulse Rate 103 H 108 H 110 H Respiratory Rate 21 H 18 20 Blood Pressure 73/50 L Pulse Oximetry 96 Oxygen Delivery Oxygen Flow Rate Fraction of Inspired Oxygen 06/17/23 21:46 06/17/23 21:48 06/17/23 22:00 Temperature 101.9 F H 101.9 F H 101.8 F H Pulse Rate 106 H 108 H 108 H Respiratory Rate 22 H 24 H 23 H Blood Pressure 71/46 L 68/48 L Pulse Oximetry 94 96 96 Oxygen Delivery Oxygen Flow Rate Fraction of Inspired Oxygen 06/17/23 22:02 06/17/23 22:16 06/17/23 22:30 Temperature 101.8 F H 101.7 F H 101.8 F H Pulse Rate 109 H 107 H 112 H Respiratory Rate 26 H 25 H 24 H Blood Pressure 94/78 L Pulse Oximetry 93 92 95 Oxygen Delivery Oxygen Flow Rate Fraction of Inspired Oxygen 06/17/23 22:31 06/17/23 22:45 06/17/23 22:46 Temperature 101.8 F H 101.8 F H 101.8 F H Pulse Rate 109 H 109 H 108 H Respiratory Rate 23 H 29 H 27 H Blood Pressure 71/38 L Pulse Oximetry 96 96 95 Oxygen Delivery Oxygen Flow Rate Fraction of Inspired Oxygen 06/17/23 23:08 06/17/23 23:16 06/17/23 23:58 Temperature 101.8 F H 101.8 F H Pulse Rate 110 H 100 110 H Respiratory Rate 27 H 23 H Blood Pressure 75/51 L Pulse Oximetry 100 97 Oxygen Delivery Oxygen Flow Rate Fraction of Inspired Oxygen 06/17/23 23:30 06/17/23 23:31 06/18/23 00:02 Temperature 101.8 F H 101.8 F H 101.9 F H Pulse Rate 104 H 105 H 111 H Respiratory Rate 22 H 28 H 23 H Blood Pressure 56/17 L Pulse Oximetry 94 Oxygen Delivery Oxygen Flow Rate Fraction of Inspired Oxygen 06/18/23 00:15 06/18/23 00:16
[2023-06-18 12:50] LABS: IFOB Positive Control Positive; Immunochemical Fecal Occult Bl Negative (N)
[2023-06-18 12:58] LABS: Lactic Acid 2.2 mmol/L (0.7-2.0)
[2023-06-18] MEDS: BISACODYL 10 MG SUPPOSITORY RECTAL (13:04)
[2023-06-18] MEDS: ACETAMINOPHEN 650 MG SUPPOSITORY RECTAL (13:04)
[2023-06-18] MEDS: PANTOPRAZOLE SODIUM IV 40 MG VIAL IV PUSH ×2 (13:15→21:42)
[2023-06-18 13:17] LABS: Iron 12 ug/dL (49-181)
[2023-06-18 13:27] LABS: Percent Iron Saturation 5 % (20-50)
[2023-06-18 14:02] LABS: Folic Acid 15.5 ng/mL (2.76->20)
[2023-06-18] MEDS: NOREPINEPHRINE 8 MG/D5W 250 ML 8 MG/250 ML BAG 20.63 MG IV CONT (21:41)
[2023-06-19] VITALS (21 sets, daily range): BP systolic 76–118; BP diastolic 53–95; PULSE 74–95; RESP 13–29; TEMP 36.4–37.1; O2SAT 92–99
[2023-06-19 05:51] LABS: Hematocrit 25.7 % (42.0-52.0); Hemoglobin 8.2 g/dL (14.0-18.0); Mean Corpuscular HGB Conc 31.9 g/dl (32-36); Mean Corpuscular Hemoglobin 28.6 pg (26-34); Mean Corpuscular Volume 89.5 fl (80-100); Mean Platelet Volume 8.7 fl (7.4-10.4); Platelet Count Result 177 k/mm3 (150-375); Red Blood Count 2.87 M/mm3 (4.6-6.20); Red Cell Distribution Width 15.4 % (11.5-14.5); White Blood Count 25.2 K/mm3 (4.5-10.0)
[2023-06-19 06:12] LABS: Lactic Acid Reflex 1.2 mmol/L (0.7-2.0)
[2023-06-19 06:14] LABS: Alanine Aminotransferase 27 U/L (6-50); Alkaline Phosphatase 125 U/L (38-126); Anion Gap 10 mmol/L (8-16); Aspartate Amino Transferase 42 U/L (17-59); Bilirubin,Total 0.5 mg/dL (0.2-1.3); Blood Urea Nitrogen 35 mg/dL (9-20); Calcium 7.7 mg/dL (8.4-10.2); Carbon Dioxide 26 mmol/L (22-30); Chloride 105 mmol/L (98-107); Estimated CRCL calculation 41 ml/min; Estimated Glomerular Filt Rate 43; Glucose 97 mg/dL (65-110); Phosphorus 2.9 mg/dL (2.5-4.5); Sodium 141 mmol/L (137-145)
[2023-06-19 07:07] LABS: Band Neutrophils Percent 20 % (0-6); Eosinophils Absolute Manual 0.25 K/mm3 (0.02-0.5); Eosinophils Percent Manual 1 % (0-4); Metamyelocytes Percent 2 %; Monocytes Absolute Manual 0.25 K/mm3 (0.1-0.90); Monocytes Percent Manual 1 % (3-9); Neutrophils Absolute Manual 23.68 K/mm3 (1.3-6.7); Neutrophils Percent Manual 74 % (46-73); Platelet Estimate Adequate (Adequate); Schistocytes Rare (NORMAL); Total Cells Counted 100
[2023-06-19 07:08] LABS: Burr Cells 1+ (NORMAL); Hypochromasia 1+ (NORMAL); Poikilocytosis 1+ (NORMAL)
[2023-06-19] MEDS: KCL 40 MEQ/WATER 100 ML 100 ML 25 ML IVPB (08:05)
[2023-06-19] MEDS: MEROPENEM 1 GM/NS 100 ML 1 GM/100 ML BAG IVPB ×2 (09:39→22:00)
[2023-06-19] MEDS: PANTOPRAZOLE SODIUM IV 40 MG VIAL IV PUSH ×2 (09:44→21:05)
--- NOTE | 2023-06-19 11:09 | WPDINTPN ---
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 intake (2) Pyelonephritis: Code(s): N12 - Tubulo-interstitial nephritis, not specified as acute or chronic Status: Acute Assessment and Plan: Patient with pyelonephritis and left ureteral stone with hydronephrosis and hydroureter, status post left ureteral stent -continue antibiotics (3) Left ureteral stone: Code(s): N20.1 - Calculus of ureter Status: Acute Assessment and Plan: As above (4) Acute kidney injury: Code(s): N17.9 - Acute kidney failure, unspecified Status: Acute Assessment and Plan: Patient's baseline creatinine is 0.7-1.0 (12/2022) -creatinine on admission was 2.10 -maintain mean arterial pressures greater than 65 mm Hg for adequate renal perfusion -urine output has been good, creatinine is trending down -lactic acid has normalized -will discontinue bicarb infusion -continue to monitor renal function, urine output and electrolytes (5) Acute metabolic encephalopathy: Code(s): G93.41 - Metabolic encephalopathy Status: Acute Assessment and Plan: Much improved mentation this morning, likely related to septic shock/infection -continue to monitor (6) Anemia: Code(s): D64.9 - Anemia, unspecified Status: Acute Assessment and Plan: Patient's hemoglobin is 7.8 on 06/19, patient has been on Eliquis at home along with famotidine, ferrous sulfate -INR was 1.9 on admission which is likely related to Eliquis -06/18 stool for occult blood is negative -Protonix IV q.12 hours Plan DVT prophylaxis: SCDs , started patient on his home Eliquis Stress ulcer prophylaxis: Protonix IV q.12 hours Nutrition: Regular diet Code Status: Do not resuscitate Critical Care Time Spent: 41 minutes 06/19/2023: Discussed with family the daughter and updated with patient's condition plan of care, answered all questions 06/18/2023: Discussed with Adrienne and Janina, patient's daughters and updated with patient's condition and plan of care. They are aware that patient is on Levophed which is being gradually weaned. I did explain to them that patient did have a stone in his left ureter, guarded the left ureteral stent, patient did have purulent and foul-smelling urine once the stent was placed. Patient is on appropriate antibiotic, awaiting cultures. I answered all questions. They did confirm that patient is a DNR, and they do not want any heroic measures for him. Due to a high probability of clinically significant, life threatening deterioration, the patient required my highest level of preparedness to intervene emergently and I personally spent this critical care time directly and personally managing the patient. This critical care time included obtaining a history; examining the patient; pulse oximetry; ordering and review of studies; arranging urgent treatment with development of a management plan; evaluation of patient's response to treatment; frequent reassessment; and discussions
[2023-06-19] MEDS: FERROUS SULFATE 325 MG TABLET DR PO (11:18)
[2023-06-19] MEDS: DULoxetine HCL 60 MG CAPSULE.DR PO (11:18)
[2023-06-19] MEDS: BACLOFEN 10 MG TABLET PO ×2 (11:18→21:00)
[2023-06-19] MEDS: ARIPiprazole 5 MG TABLET PO (11:19)
[2023-06-19] MEDS: TOPIRAMATE 100 MG TABLET PO (11:19)
[2023-06-19] MEDS: APIXABAN 5 MG TABLET PO ×2 (11:19→21:05)
[2023-06-19] MEDS: FLUTICASONE PROPIONATE 0.05% NA SPR 16 GM BTL (*BKC) 1 SPRAY NASAL ×2 (11:19→21:05)
--- NOTE | 2023-06-19 13:32 | WPDANESPN ---
Anes - Prog Note Post-Op Date/Time: 06/19/23 13:32 Cardiovascular status: normal Respiratory status: normal Airway patency: baseline Mental status: baseline Post-Op hydration status: normal Vital Signs: Last Vital Signs Temp 36.9 C 06/19/23 12:00 Pulse 90 06/19/23 12:00 Resp 29 H 06/19/23 12:00 BP 93/63 L 06/19/23 12:00 Pulse Ox 98 06/19/23 12:00 O2 Del Method Nasal Cannula 06/19/23 12:00 O2 Flow Rate 2 06/19/23 12:00 FiO2 28 06/19/23 10:20 Pain Score (VAS): 0/10 I/O: Intake & Output 06/18/23 06/19/23 06/19/23 23:59 07:59 15:59 Intake Total 350 180 Output Total 975 1500 Balance -625 -1500 180 Laboratory Tests 06/19/23 05:46 06/19/23 05:46 06/18/23 06/19/23 12:33 05:46 WBC 25.2 H RBC 2.87 L Hgb 8.2 L Hct 25.7 L MCV 89.5 MCH 28.6 MCHC 31.9 L RDW 15.4 H Plt Count 177 MPV 8.7 Immature Gran % (Auto) Not Reportable Neut % (Auto) Not Reportable Lymph % (Auto) Not Reportable [place] % (Auto) Not Reportable Eos % (Auto) Not Reportable Baso % (Auto) Not Reportable Lymph # (Auto) Not Reportable [place] # (Auto) Not Reportable Eos # (Auto) Not Reportable Baso # (Auto) Not Reportable Abs Immat Gran (auto) Not Reportable Absolute Neuts (auto) Not Reportable Absolute Nucleated RBC Not Reportable Total Counted 100 Neutrophils % (Manual) 74 H Band Neutrophils % 20 H Lymphocytes % (Manual) 2.0 L Monocytes % (Manual) 1 L Eosinophils % (Manual) 1 Metamyelocytes % 2 Nucleated RBC % Not Reportable Abs Neuts (Manual) 23.68 H Abs Lymphs (Manual) 0.50 L Abs Monocytes (Manual) 0.25 Absolute Eos (Manual) 0.25 Platelet Estimate Adequate Hypochromasia 1+ Poikilocytosis 1+ [place] Cells 1+ Schistocytes Rare Sodium 141 Potassium 3.0 L Chloride 105 Carbon Dioxide 26 Anion Gap 10 BUN 35 H Creatinine 1.60 H Estim Creat Clear Calc 41 Estimated GFR 43 L Glucose 97 Lactic Acid 1.2 Calcium 7.7 L Phosphorus 2.9 Magnesium 2.0 % Saturation 5 L Total Bilirubin 0.5 AST 42 ALT 27 Alkaline Phosphatase 125 Total Protein 6.0 L Albumin 3.0 L Vitamin B12 724.0 Folate 15.5 Microbiology 06/17/23 20:25 Urine Catheterized Urine Culture - Preliminary Escherichia Coli Proteus Mirabilis 06/17/23 20:25 Blood Blood Culture - Preliminary Proteus Mirabilis 06/17/23 23:41 Blood Blood Culture - Preliminary Post-procedural complaints: none Patient Feedback: Patient satisfied with anesthetic care. Other Findings: patient reports he received excellent anesthesia services and has no concerns.
[2023-06-19] MEDS: GABAPENTIN 400 MG CAPSULE PO ×2 (14:17→17:09)
[2023-06-19] MEDS: CENTRAL LINE FLUSH 10 ML IV PUSH ×3 (14:17→22:00)
[2023-06-20] VITALS (14 sets, daily range): BP systolic 93–119; BP diastolic 55–74; PULSE 70–89; RESP 12–23; TEMP 36.2–37.1; O2SAT 95–100
[2023-06-20 04:08] LABS: Hematocrit 24.9 % (42.0-52.0); Hemoglobin 7.8 g/dL (14.0-18.0); Mean Corpuscular HGB Conc 31.3 g/dl (32-36); Mean Corpuscular Hemoglobin 28.2 pg (26-34); Mean Corpuscular Volume 89.9 fl (80-100); Platelet Count Result 127 k/mm3 (150-375); Red Blood Count 2.77 M/mm3 (4.6-6.20); Red Cell Distribution Width 15.4 % (11.5-14.5); White Blood Count 14.5 K/mm3 (4.5-10.0)
[2023-06-20 04:18] LABS: Alanine Aminotransferase 26 U/L (6-50); Albumin Level 2.7 g/dL (3.5-5.1); Alkaline Phosphatase 153 U/L (38-126); Anion Gap 5 mmol/L (8-16); Aspartate Amino Transferase 34 U/L (17-59); Bilirubin,Total 0.6 mg/dL (0.2-1.3); Blood Urea Nitrogen 29 mg/dL (9-20); Calcium 7.3 mg/dL (8.4-10.2); Carbon Dioxide 26 mmol/L (22-30); Chloride 106 mmol/L (98-107); Estimated CRCL calculation 59 ml/min; Estimated Glomerular Filt Rate > 60; Glucose 77 mg/dL (65-110); Lactic Acid Reflex 0.7 mmol/L (0.7-2.0); Magnesium 2.1 mg/dL (1.6-2.3); Phosphorus 2.7 mg/dL (2.5-4.5); Potassium 3.3 mmol/L (3.4-5.0); Sodium 137 mmol/L (137-145)
[2023-06-20 04:35] LABS: Eosinophils Absolute Manual 0.29 K/mm3 (0.02-0.5); Eosinophils Percent Manual 2 % (0-4); Lymphocytes Absolute Manual 0.72 K/mm3 (1.1-4.5); Monocytes Absolute Manual 0.14 K/mm3 (0.1-0.90); Monocytes Percent Manual 1 % (3-9); Neutrophils Percent Manual 92 % (46-73); Platelet Estimate Decreased (Adequate); Total Cells Counted 100
[2023-06-20] MEDS: CENTRAL LINE FLUSH 10 ML IV PUSH ×3 (04:35→17:01)
[2023-06-20 04:36] LABS: Anisocytosis 1+ (NORMAL); Burr Cells 1+ (NORMAL); Hypochromasia 1+ (NORMAL); Ovalocytes 1+ (NORMAL); Schistocytes None Seen (NORMAL)
[2023-06-20] MEDS: KCL 40 MEQ/WATER 100 ML 100 ML 25 ML IVPB (08:13)
[2023-06-20] MEDS: APIXABAN 5 MG TABLET PO ×2 (08:15→21:18)
[2023-06-20] MEDS: FERROUS SULFATE 325 MG TABLET DR PO (08:15)
[2023-06-20] MEDS: BACLOFEN 10 MG TABLET PO ×2 (08:15→21:18)
[2023-06-20] MEDS: PANTOPRAZOLE SODIUM IV 40 MG VIAL IV PUSH ×2 (08:15→21:00)
[2023-06-20] MEDS: TIZANIDINE HCL 2 MG TABLET PO (08:15)
[2023-06-20] MEDS: TOPIRAMATE 100 MG TABLET PO (08:15)
[2023-06-20] MEDS: SENNOSIDES 8.6 MG TABLET PO (08:15)
[2023-06-20] MEDS: GABAPENTIN 400 MG CAPSULE PO ×3 (08:15→17:01)
[2023-06-20] MEDS: ARIPiprazole 5 MG TABLET PO (08:15)
[2023-06-20] MEDS: DULoxetine HCL 60 MG CAPSULE.DR PO (08:15)
[2023-06-20] MEDS: MEROPENEM 1 GM/NS 100 ML 1 GM/100 ML BAG IVPB (10:07)
[2023-06-20] MEDS: FLUTICASONE PROPIONATE 0.05% NA SPR 16 GM BTL (*BKC) 1 SPRAY NASAL ×2 (10:07→21:00)
--- NOTE | 2023-06-20 12:19 | WPDINTPN ---
Progress Note: A&P Assessment and Plan (1) Septic shock: Code(s): A41.9 - Sepsis, unspecified organism; R65.21 - Severe sepsis with septic shock Status: Acute Assessment and Plan: Patient presented with altered mental status, hypotension, fevers, acute kidney injury -was found to have urinary tract infection on UA, CT scan showed 4 mm left distal ureter stone, S post cystoscopy, left ureteral stent placement, retrograde pyelogram on 06/18/2023 hander in -according the urology notes, patient's urine was foul smelling and purulent -OFF Levophed -continue meropenem, (06/18) -06/20 discontinue vancomycin -06/18: Blood cultures growing Proteus mirabilis, E coli is sensitive to meropenem, Proteus is pansensitive -06/18: Urine cultures growing E coli and Proteus mirabilis, pansensitive -patient received adequate IV fluids, lactic acid has normalized, will continue to monitor -patient is taking adequate p.o. intake (2) Pyelonephritis: Code(s): N12 - Tubulo-interstitial nephritis, not specified as acute or chronic Status: Acute Assessment and Plan: Patient with pyelonephritis and left ureteral stone with hydronephrosis and hydroureter, status post left ureteral stent -continue antibiotics (3) Left ureteral stone: Code(s): N20.1 - Calculus of ureter Status: Acute Assessment and Plan: As above (4) Acute kidney injury: Code(s): N17.9 - Acute kidney failure, unspecified Status: Acute Assessment and Plan: Patient's baseline creatinine is 0.7-1.0 (12/2022) -creatinine on admission was 2.10 -maintain mean arterial pressures greater than 65 mm Hg for adequate renal perfusion -urine output has been good, creatinine down to normal -lactic acid has normalized -continue to monitor renal function, urine output and electrolytes (5) Acute metabolic encephalopathy: Code(s): G93.41 - Metabolic encephalopathy Status: Acute Assessment and Plan: Much improved mentation this morning, likely related to septic shock/infection -continue to monitor (6) Anemia: Code(s): D64.9 - Anemia, unspecified Status: Acute Assessment and Plan: Patient's hemoglobin is 7.8 on 06/19, patient has been on Eliquis at home along with famotidine, ferrous sulfate -INR was 1.9 on admission which is likely related to Eliquis -06/18 stool for occult blood is negative -Protonix IV q.12 hours Plan DVT prophylaxis: SCDs , started patient on his home Eliquis Stress ulcer prophylaxis: Protonix IV q.12 hours Nutrition: Regular diet PT/OT has been ordered, patient will transfer out of the ICU today Code Status: Do not resuscitate Critical Care Time Spent: 32 minutes 06/19/2023: Discussed with family the daughter and updated with patient's condition plan of care, answered all questions 06/18/2023: Discussed with Adrienne and Janina, patient's daughters and updated with patient's condition and plan of care. They are aware that patient is on Levophed which is being gradually weaned. I did explain to them that patient did have a stone in his left ureter, guarded the left ureteral stent, patient did have purulent and foul-smelling urine once the stent was placed. Patient is on appropriate antibiotic, awaiting cultures. I answered all questions. They did confirm that patient is a DNR, and they do not want any heroic measures for him. Due to a high probability of clinically significant, life threatening deterioration, the patient required my highest level of preparedness to intervene emergently and I personally spent this critical care time directly and personally managing the patient. This critical care time included obtaining a history; examining the patient; pulse oximetry; ordering and review of studies; arranging urgent treatment with development of a management plan; evaluation of patient's response to treatment; frequent reassessment; and discussions with other provid
--- NOTE | 2023-06-20 13:15 | PM.IMPN ---
Progress Note: A&P Assessment and Plan (1) Septic shock: Code(s): A41.9 - Sepsis, unspecified organism; R65.21 - Severe sepsis with septic shock Status: Acute Assessment and Plan: Patient presented with altered mental status, hypotension, fevers, acute kidney injury, was found to have urinary tract infection on UA, CT scan showed 4 mm left distal ureter stone, s/p cystoscopy, left ureteral stent placement, retrograde pyelogram on 06/18/2023 Meropenem started 06/18 06/20: discontinue vancomycin 06/18: blood cultures growing proteus mirabilis, ecoli is sensitive to meropenem, proteus is pansensitive 06/18: urine cultures growing ecoli and proteus mirabilis, pansensitive repeat bld cx ordered and pending 06/20 (2) Pyelonephritis: Code(s): N12 - Tubulo-interstitial nephritis, not specified as acute or chronic Status: Acute Assessment and Plan: Patient with pyelonephritis and left ureteral stone with hydronephrosis and hydroureter, status post left ureteral stent tx as above (3) Left ureteral stone: Code(s): N20.1 - Calculus of ureter Status: Acute Assessment and Plan: As above (4) Acute kidney injury: Code(s): N17.9 - Acute kidney failure, unspecified Status: Acute Assessment and Plan: Patient's baseline creatinine is 0.7-1.0, down to 1.1 06/20, monitor (5) Acute metabolic encephalopathy: Code(s): G93.41 - Metabolic encephalopathy Status: Acute Assessment and Plan: Likely 2/2 above, improving, monitor (6) Anemia: Code(s): D64.9 - Anemia, unspecified Status: Acute Assessment and Plan: Monitor, stable Plan DVT prophylaxis: eliquis Stress ulcer prophylaxis: protonix IV q.12 hours Nutrition: regular diet Code Status: DNR Per byproducts supervisor documentation: 06/19/2023: Discussed with family the daughter and updated with patient's condition plan of care, answered all questions 06/18/2023: Discussed with Adrienne and Janina, patient's daughters and updated with patient's condition and plan of care. They are aware that patient is on Levophed which is being gradually weaned. I did explain to them that patient did have a stone in his left ureter, guarded the left ureteral stent, patient did have purulent and foul-smelling urine once the stent was placed. Patient is on appropriate antibiotic, awaiting cultures. I answered all questions. They did confirm that patient is a DNR, and they do not want any heroic measures for him. Subjective Date/time seen: 06/20/23 13:15 Interval history: 72-year-old male with history of quadriplegia GI, sleep apnea and kidney stones is presenting from a nursing facility for altered mental status and currently being treated for septic shock, pyelonephritis, nephrolithiasis, acute kidney injury, status post cystoscopy, left ureteral stent placement, retrograde pyelogram on 06/18/2023. No overnight events noted. No chest pain or shortness of breath. No nausea, vomiting or diarrhea. No fevers or chills. Much improved from yesterday. Review of Systems Review of Systems: 12 point review of systems was assessed and was negative except as noted in the HPI Exam Narrative: General: No acute distress, alert and oriented per baseline HEENT: Atraumatic, normocephalic, mucous membranes moist CV: Regular rate and rhythm, S1, S2 Lungs: Clear to auscultation bilaterally, no rales or crackles noted, no wheezes, good air entry Abdomen: Soft, nontender, nondistended Extremities: Normal to inspection, trace nonpitting edema bilaterally Skin: No rashes noted, no lesions or wounds seen Psych: Euthymic, flattened affect Objective Data Vital Signs Vital Signs: Vital Signs - 24 hr 06/19/23 14:00 06/19/23 14:00 06/19/23 14:26 Temperature 98.4 F Pulse Rate 88 88 Respiratory Rate 16 Blood Pressure 97/58 L Pulse Oximetry 98 95 Oxygen Delivery Room
--- NOTE | 2023-06-20 17:45 | PC.NURSE ---
This patient, Aly Cervantes, was received from ICU 5 on 06/20/23 at 1745. Patient/family oriented to unit policies and routines
--- NOTE | 2023-06-20 17:51 | PC.NURSE ---
This patient, Aly Cervantes, was transferred to [facility] on 06/20/23 at 1740. Personal belongings sent with patient. Report given to Jenni. Appropriate documentation sent with patient.
[2023-06-20] MEDS: ERTAPENEM 1 GM/NS 50 ML 1 GM/50 ML BAG IVPB (21:18)
[2023-06-21] MEDS: CENTRAL LINE FLUSH 10 ML IV PUSH ×4 (04:33→20:11)
[2023-06-21 05:56] LABS: Basophils Percent Auto 0.3 % (0.2-1.2); Eosinophils Absolute Auto 0.3 K/mm3 (0-0.3); Eosinophils Percent Auto 2.9 % (0-4.4); Hemoglobin 8.1 g/dL (14.0-18.0); Immature Granulocyte Absolute 0.04 K/mm3 (0.00-0.031); Immature Granulocyte Percent A 0.4 % (0-0.5); Lymphocytes Absolute Auto 1.21 K/mm3 (0.9-3.2); Lymphocytes Percent Auto 11.3 % (18.3-44.2); Mean Corpuscular HGB Conc 31.2 g/dl (32-36); Mean Corpuscular Hemoglobin 28.3 pg (26-34); Mean Corpuscular Volume 90.9 fl (80-100); Mean Platelet Volume 9.7 fl (7.4-10.4); Monocytes Absolute Auto 0.4 K/mm3 (0.1-0.6); Monocytes Percent Auto 3.4 % (2.6-8.5); Neutrophils Absolute Auto 8.8 K/mm3 (1.3-6.7); Neutrophils Percent Auto 81.7 % (45.5-73.1); Platelet Count Result 152 k/mm3 (150-375); Red Blood Count 2.86 M/mm3 (4.6-6.20); Red Cell Distribution Width 15.7 % (11.5-14.5); White Blood Count 10.7 K/mm3 (4.5-10.0)
[2023-06-21 06:00] VITALS: BP 117/61; PULSE 78; RESP 16; TEMP 36.6; O2SAT 95
[2023-06-21 06:06] LABS: Alanine Aminotransferase 24 U/L (6-50); Albumin Level 2.7 g/dL (3.5-5.1); Alkaline Phosphatase 221 U/L (38-126); Anion Gap 7 mmol/L (8-16); Aspartate Amino Transferase 25 U/L (17-59); Bilirubin,Total 0.5 mg/dL (0.2-1.3); Blood Urea Nitrogen 27 mg/dL (9-20); Calcium 7.7 mg/dL (8.4-10.2); Carbon Dioxide 22 mmol/L (22-30); Chloride 113 mmol/L (98-107); Estimated CRCL calculation 59 ml/min; Estimated Glomerular Filt Rate > 60; Glucose 78 mg/dL (65-110); Magnesium 2.3 mg/dL (1.6-2.3); Phosphorus 2.5 mg/dL (2.5-4.5); Potassium 3.8 mmol/L (3.4-5.0); Sodium 142 mmol/L (137-145)
[2023-06-21] MEDS: GABAPENTIN 400 MG CAPSULE PO ×3 (09:34→16:42)
[2023-06-21] MEDS: APIXABAN 5 MG TABLET PO ×2 (09:34→20:08)
[2023-06-21] MEDS: SENNOSIDES 8.6 MG TABLET PO (09:34)
[2023-06-21] MEDS: BACLOFEN 10 MG TABLET PO ×2 (09:34→20:08)
[2023-06-21] MEDS: ARIPiprazole 5 MG TABLET PO (09:34)
[2023-06-21] MEDS: PANTOPRAZOLE SODIUM IV 40 MG VIAL IV PUSH ×2 (09:34→20:09)
[2023-06-21] MEDS: FERROUS SULFATE 325 MG TABLET DR PO (09:34)
[2023-06-21] MEDS: TOPIRAMATE 100 MG TABLET PO (09:34)
[2023-06-21] MEDS: DULoxetine HCL 60 MG CAPSULE.DR PO (09:34)
[2023-06-21] MEDS: FLUTICASONE PROPIONATE 0.05% NA SPR 16 GM BTL (*BKC) 1 SPRAY NASAL ×2 (09:37→20:09)
--- NOTE | 2023-06-21 11:11 | PM.IMPN ---
Progress Note: A&P Assessment and Plan (1) Septic shock: Code(s): A41.9 - Sepsis, unspecified organism; R65.21 - Severe sepsis with septic shock Status: Acute Assessment and Plan: Patient presented with altered mental status, hypotension, fevers, acute kidney injury, was found to have urinary tract infection on UA, CT scan showed 4 mm left distal ureter stone, s/p cystoscopy, left ureteral stent placement, retrograde pyelogram on 06/18/2023 Meropenem started 06/18 06/20: discontinue vancomycin 06/18: blood cultures growing proteus mirabilis, ecoli is sensitive to meropenem, proteus is pansensitive 06/18: urine cultures growing ecoli and proteus mirabilis, pansensitive repeat bld cx ordered and pending 06/20, when this comes back negative, would d/c on macrobid for the ESBL ecoli and augmentin for the proteus to complete a 7 day course, end date 06/25 (2) Pyelonephritis: Code(s): N12 - Tubulo-interstitial nephritis, not specified as acute or chronic Status: Acute Assessment and Plan: Patient with pyelonephritis and left ureteral stone with hydronephrosis and hydroureter, status post left ureteral stent tx as above (3) Left ureteral stone: Code(s): N20.1 - Calculus of ureter Status: Acute Assessment and Plan: As above (4) Acute kidney injury: Code(s): N17.9 - Acute kidney failure, unspecified Status: Acute Assessment and Plan: Patient's baseline creatinine is 0.7-1.0, down to 1.1 06/20, monitor resolved (5) Acute metabolic encephalopathy: Code(s): G93.41 - Metabolic encephalopathy Status: Acute Assessment and Plan: Likely 2/2 above, improving, monitor (6) Anemia: Code(s): D64.9 - Anemia, unspecified Status: Acute Assessment and Plan: Monitor, stable Plan DVT prophylaxis: eliquis Stress ulcer prophylaxis: protonix IV q.12 hours Nutrition: regular diet Code Status: DNR Per park superintendent documentation: 06/19/2023: Discussed with family the daughter and updated with patient's condition plan of care, answered all questions 06/18/2023: Discussed with Adrienne and Janina, patient's daughters and updated with patient's condition and plan of care. They are aware that patient is on Levophed which is being gradually weaned. I did explain to them that patient did have a stone in his left ureter, guarded the left ureteral stent, patient did have purulent and foul-smelling urine once the stent was placed. Patient is on appropriate antibiotic, awaiting cultures. I answered all questions. They did confirm that patient is a DNR, and they do not want any heroic measures for him. Subjective Date/time seen: 06/21/23 11:11 Interval history: 72-year-old male with history of quadriplegia GI, sleep apnea and kidney stones is presenting from a nursing facility for altered mental status and currently being treated for septic shock, pyelonephritis, nephrolithiasis, acute kidney injury, status post cystoscopy, left ureteral stent placement, retrograde pyelogram on 06/18/23. No overnight events noted. No chest pain or shortness of breath. No nausea, vomiting or diarrhea. No fevers or chills. Much improved from yesterday. Review of Systems Review of Systems: 12 point review of systems was assessed and was negative except as noted in the HPI Exam Narrative: General: No acute distress, alert and oriented per baseline HEENT: Atraumatic, normocephalic, mucous membranes moist CV: Regular rate and rhythm, S1, S2 Lungs: Clear to auscultation bilaterally, no rales or crackles noted, no wheezes, good air entry Abdomen: Soft, nontender, nondistended Extremities: Normal to inspection, trace nonpitting edema bilaterally Skin: No rashes noted, no lesions or wounds seen Psych: Euthymic, flattened affect Objective Data Vital Signs Vital Signs: Vital Signs - 24 hr 06/20/23 12:00 06/20/23 12:00
--- NOTE | 2023-06-21 11:34 | PCPTNOTE ---
Pt is a ricky lift/dependent at baseline. Hospitalist contacted. Therapy order cancelled at this time.
[2023-06-21 13:31] VITALS: BP 122/72; PULSE 75; RESP 16; TEMP 36.2; O2SAT 100
--- NOTE | 2023-06-21 14:49 | PCOTNOTE ---
Pt. is dependent at baseline due to chronic injury. Nursing and hospitalist aware. Cancelation of therapy orders.
[2023-06-21] MEDS: ERTAPENEM 1 GM/NS 50 ML 1 GM/50 ML BAG IVPB (20:08)
[2023-06-21 20:30] VITALS: PULSE 83; RESP 16; O2SAT 99
[2023-06-21 21:47] VITALS: BP 113/78; PULSE 83; RESP 16; TEMP 37.1; O2SAT 99
[2023-06-22] MEDS: CENTRAL LINE FLUSH 10 ML IV PUSH ×2 (05:21→13:53)
[2023-06-22 06:00] VITALS: BP 117/76; PULSE 79; RESP 16; TEMP 36.7; O2SAT 98
[2023-06-22 06:20] LABS: Basophils Percent Auto 0.4 % (0.2-1.2); Eosinophils Absolute Auto 0.3 K/mm3 (0-0.3); Hematocrit 27.1 % (42.0-52.0); Hemoglobin 8.4 g/dL (14.0-18.0); Lymphocytes Absolute Auto 1.28 K/mm3 (0.9-3.2); Lymphocytes Percent Auto 12.4 % (18.3-44.2); Mean Corpuscular Hemoglobin 28.2 pg (26-34); Mean Corpuscular Volume 90.9 fl (80-100); Mean Platelet Volume 9.9 fl (7.4-10.4); Monocytes Absolute Auto 0.5 K/mm3 (0.1-0.6); Monocytes Percent Auto 4.9 % (2.6-8.5); Neutrophils Absolute Auto 8.1 K/mm3 (1.3-6.7); Neutrophils Percent Auto 78.3 % (45.5-73.1); Platelet Count Result 158 k/mm3 (150-375); Red Blood Count 2.98 M/mm3 (4.6-6.20); Red Cell Distribution Width 15.8 % (11.5-14.5); White Blood Count 10.3 K/mm3 (4.5-10.0)
[2023-06-22 06:49] LABS: Alanine Aminotransferase 22 U/L (6-50); Alkaline Phosphatase 179 U/L (38-126); Anion Gap 5 mmol/L (8-16); Aspartate Amino Transferase 28 U/L (17-59); Bilirubin,Total 0.5 mg/dL (0.2-1.3); Blood Urea Nitrogen 22 mg/dL (9-20); Carbon Dioxide 21 mmol/L (22-30); Chloride 113 mmol/L (98-107); Estimated CRCL calculation 65 ml/min; Estimated Glomerular Filt Rate > 60; Glucose 80 mg/dL (65-110); Magnesium 2.3 mg/dL (1.6-2.3); Phosphorus 2.7 mg/dL (2.5-4.5); Sodium 139 mmol/L (137-145)
[2023-06-22] MEDS: APIXABAN 5 MG TABLET PO ×2 (08:56→20:44)
[2023-06-22] MEDS: PANTOPRAZOLE SODIUM IV 40 MG VIAL IV PUSH ×2 (08:56→21:55)
[2023-06-22] MEDS: GABAPENTIN 400 MG CAPSULE PO ×3 (08:56→16:29)
[2023-06-22] MEDS: DULoxetine HCL 60 MG CAPSULE.DR PO (08:56)
[2023-06-22] MEDS: SENNOSIDES 8.6 MG TABLET PO (08:56)
[2023-06-22] MEDS: TOPIRAMATE 100 MG TABLET PO (08:56)
[2023-06-22] MEDS: FERROUS SULFATE 325 MG TABLET DR PO (08:56)
[2023-06-22] MEDS: BACLOFEN 10 MG TABLET PO ×2 (08:56→20:44)
[2023-06-22] MEDS: ARIPiprazole 5 MG TABLET PO (08:56)
[2023-06-22] MEDS: FLUTICASONE PROPIONATE 0.05% NA SPR 16 GM BTL (*BKC) 1 SPRAY NASAL ×2 (08:57→21:49)
[2023-06-22 09:25] VITALS: O2SAT 98
--- NOTE | 2023-06-22 12:27 | PM.IMPN ---
Progress Note: A&P Assessment and Plan (1) Septic shock: Code(s): A41.9 - Sepsis, unspecified organism; R65.21 - Severe sepsis with septic shock Status: Acute Assessment and Plan: Patient presented with altered mental status, hypotension, fevers, acute kidney injury, was found to have urinary tract infection on UA, CT scan showed 4 mm left distal ureter stone, s/p cystoscopy, left ureteral stent placement, retrograde pyelogram on 06/18/2023 Meropenem started 06/18 06/20: discontinue vancomycin 06/18: blood cultures growing proteus mirabilis, ecoli is sensitive to meropenem, proteus is pansensitive 06/18: urine cultures growing ecoli and proteus mirabilis, pansensitive repeat bld cx ordered and pending 06/20, when this comes back negative, would d/c on macrobid for the ESBL ecoli and augmentin for the proteus to complete a 7 day course, end date 06/25 (2) Pyelonephritis: Code(s): N12 - Tubulo-interstitial nephritis, not specified as acute or chronic Status: Acute Assessment and Plan: Patient with pyelonephritis and left ureteral stone with hydronephrosis and hydroureter, status post left ureteral stent tx as above (3) Left ureteral stone: Code(s): N20.1 - Calculus of ureter Status: Acute Assessment and Plan: voiding trial, then renal US to confirm resolution (4) Acute kidney injury: Code(s): N17.9 - Acute kidney failure, unspecified Status: Acute Assessment and Plan: Patient's baseline creatinine is 0.7-1.0, down to 1.1 06/20, monitor resolved (5) Acute metabolic encephalopathy: Code(s): G93.41 - Metabolic encephalopathy Status: Acute Assessment and Plan: Likely 2/2 above, improving, monitor (6) Anemia: Code(s): D64.9 - Anemia, unspecified Status: Acute Assessment and Plan: Monitor, stable Plan DVT prophylaxis: eliquis Stress ulcer prophylaxis: protonix IV q.12 hours Nutrition: regular diet Code Status: DNR Per line up machine operator documentation: 06/19/2023: Discussed with family the daughter and updated with patient's condition plan of care, answered all questions 06/18/2023: Discussed with Kanika, patient's daughters and updated with patient's condition and plan of care. They are aware that patient is on Levophed which is being gradually weaned. I did explain to them that patient did have a stone in his left ureter, guarded the left ureteral stent, patient did have purulent and foul-smelling urine once the stent was placed. Patient is on appropriate antibiotic, awaiting cultures. I answered all questions. They did confirm that patient is a DNR, and they do not want any heroic measures for him. Subjective Date/time seen: 06/22/23 12:27 Interval history: 72-year-old male with history of quadriplegia GI, sleep apnea and kidney stones is presenting from a nursing facility for altered mental status and currently being treated for septic shock, pyelonephritis, nephrolithiasis, acute kidney injury, status post cystoscopy, left ureteral stent placement, retrograde pyelogram on 06/18/23. No overnight events noted. No chest pain or shortness of breath. No nausea, vomiting or diarrhea. No fevers or chills. Much improved from yesterday. Review of Systems Review of Systems: 12 point review of systems was assessed and was negative except as noted in the HPI Exam Narrative: General: No acute distress, alert and oriented per baseline HEENT: Atraumatic, normocephalic, mucous membranes moist CV: Regular rate and rhythm, S1, S2 Lungs: Clear to auscultation bilaterally, no rales or crackles noted, no wheezes, good air entry Abdomen: Soft, nontender, nondistended Extremities: Normal to inspection, trace nonpitting edema bilaterally Skin: No rashes noted, no lesions or wounds seen Psych: Euthymic, flattened affect Objective Data Vital Signs Vital Signs: Vital Signs -
--- NOTE | 2023-06-22 12:36 | PM.DS ---
DS: Admitting Diagnosis Discharge Date 06/24/23 Admitting Diagnosis ams DS: Discharge Diagnosis Discharge Diagnosis (1) Septic shock: Code(s): A41.9 - Sepsis, unspecified organism; R65.21 - Severe sepsis with septic shock Status: Acute Assessment and Plan: Patient presented with altered mental status, hypotension, fevers, acute kidney injury, was found to have urinary tract infection on UA, CT scan showed 4 mm left distal ureter stone, s/p cystoscopy, left ureteral stent placement, retrograde pyelogram on 06/18/2023 Meropenem started 06/18 06/20: discontinue vancomycin 06/18: blood cultures growing proteus mirabilis, ecoli is sensitive to meropenem, proteus is pansensitive 06/18: urine cultures growing ecoli and proteus mirabilis, pansensitive repeat bld cx ordered and pending 06/20, when this comes back negative, would d/c on macrobid for the ESBL ecoli and augmentin for the proteus to complete a 7 day course, end date 06/25 (2) Pyelonephritis: Code(s): N12 - Tubulo-interstitial nephritis, not specified as acute or chronic Status: Acute Assessment and Plan: Patient with pyelonephritis and left ureteral stone with hydronephrosis and hydroureter, status post left ureteral stent tx as above (3) Left ureteral stone: Code(s): N20.1 - Calculus of ureter Status: Acute Assessment and Plan: As above (4) Acute kidney injury: Code(s): N17.9 - Acute kidney failure, unspecified Status: Acute Assessment and Plan: Patient's baseline creatinine is 0.7-1.0, down to 1.1 06/20, monitor resolved (5) Acute metabolic encephalopathy: Code(s): G93.41 - Metabolic encephalopathy Status: Acute Assessment and Plan: Likely 2/2 above, improving, monitor (6) Anemia: Code(s): D64.9 - Anemia, unspecified Status: Acute Assessment and Plan: Monitor, stable Plan DVT prophylaxis: eliquis Stress ulcer prophylaxis: protonix IV q.12 hours Nutrition: regular diet Code Status: DNR Per client services vice president documentation: 06/19/2023: Discussed with family the daughter and updated with patient's condition plan of care, answered all questions 06/18/2023: Discussed with Deloresna, patient's daughters and updated with patient's condition and plan of care. They are aware that patient is on Levophed which is being gradually weaned. I did explain to them that patient did have a stone in his left ureter, guarded the left ureteral stent, patient did have purulent and foul-smelling urine once the stent was placed. Patient is on appropriate antibiotic, awaiting cultures. I answered all questions. They did confirm that patient is a DNR, and they do not want any heroic measures for him. DS: Summary Hospital Course Hospital Course: 72-year-old male with history of quadriplegia GI, sleep apnea and kidney stones is presenting from a nursing facility for altered mental status and currently being treated for septic shock, pyelonephritis, nephrolithiasis, acute kidney injury, status post cystoscopy, left ureteral stent placement, retrograde pyelogram on 06/18/23. Patient presented with altered mental status, hypotension, fevers, acute kidney injury, was found to have urinary tract infection on UA, CT scan showed 4 mm left distal ureter stone, s/p cystoscopy, left ureteral stent placement, retrograde pyelogram on 06/18/23 Meropenem started 06/18 06/20: discontinue vancomycin 06/18: blood cultures growing proteus mirabilis, ecoli is sensitive to meropenem, proteus is pansensitive 06/18: urine cultures growing ecoli and proteus mirabilis, pansensitive Repeat bld cx ordered and pending 06/20, when this comes back negative, would d/c on macrobid for the ESBL ecoli and augmentin for the proteus to complete a 7 day course, end date 06/25. Patient with pyelonephritis and left ureteral stone with hydronephrosis and hydroureter, status post left ureteral stent tx as above
[2023-06-22 15:29] LABS: SARS-CoV-2 RNA PCR Negative (Negative)
--- NOTE | 2023-06-22 19:17 | PC.NURSE ---
PT daughter Adrienne called and updated on status and informed patient will not be discharging tonight. All questions answered.
[2023-06-22 20:00] VITALS: PULSE 79; RESP 16; O2SAT 98
[2023-06-22] MEDS: ERTAPENEM 1 GM/NS 50 ML 1 GM/50 ML BAG IVPB (20:44)
[2023-06-22 22:00] VITALS: BP 104/62; PULSE 87; RESP 16; TEMP 37.6; O2SAT 94
[2023-06-23 06:00] VITALS: BP 100/57; PULSE 85; RESP 18; TEMP 37.7; O2SAT 100
[2023-06-23 06:08] LABS: Basophils Percent Auto 0.3 % (0.2-1.2); Eosinophils Absolute Auto 0.2 K/mm3 (0-0.3); Eosinophils Percent Auto 2.2 % (0-4.4); Hematocrit 25.6 % (42.0-52.0); Hemoglobin 7.9 g/dL (14.0-18.0); Immature Granulocyte Absolute 0.12 K/mm3 (0.00-0.031); Immature Granulocyte Percent A 1.3 % (0-0.5); Lymphocytes Absolute Auto 1.27 K/mm3 (0.9-3.2); Lymphocytes Percent Auto 13.6 % (18.3-44.2); Mean Corpuscular HGB Conc 30.9 g/dl (32-36); Mean Corpuscular Hemoglobin 28.1 pg (26-34); Mean Corpuscular Volume 91.1 fl (80-100); Mean Platelet Volume 9.9 fl (7.4-10.4); Monocytes Absolute Auto 0.7 K/mm3 (0.1-0.6); Monocytes Percent Auto 7.5 % (2.6-8.5); Neutrophils Percent Auto 75.1 % (45.5-73.1); Platelet Count Result 177 k/mm3 (150-375); Red Blood Count 2.81 M/mm3 (4.6-6.20); Red Cell Distribution Width 15.9 % (11.5-14.5); White Blood Count 9.4 K/mm3 (4.5-10.0)
[2023-06-23 06:24] LABS: Alanine Aminotransferase 18 U/L (6-50); Albumin Level 2.8 g/dL (3.5-5.1); Alkaline Phosphatase 125 U/L (38-126); Anion Gap 8 mmol/L (8-16); Aspartate Amino Transferase 18 U/L (17-59); Bilirubin,Total 0.3 mg/dL (0.2-1.3); Blood Urea Nitrogen 22 mg/dL (9-20); Calcium 7.9 mg/dL (8.4-10.2); Carbon Dioxide 17 mmol/L (22-30); Chloride 111 mmol/L (98-107); Estimated CRCL calculation 71 ml/min; Estimated Glomerular Filt Rate > 60; Glucose 91 mg/dL (65-110); Potassium 4.3 mmol/L (3.4-5.0); Sodium 136 mmol/L (137-145)
[2023-06-23] MEDS: APIXABAN 5 MG TABLET PO ×2 (09:10→20:48)
[2023-06-23] MEDS: PANTOPRAZOLE SODIUM IV 40 MG VIAL IV PUSH ×2 (09:10→20:41)
[2023-06-23] MEDS: TOPIRAMATE 100 MG TABLET PO (09:10)
[2023-06-23] MEDS: BACLOFEN 10 MG TABLET PO ×2 (09:11→20:48)
[2023-06-23] MEDS: FERROUS SULFATE 325 MG TABLET DR PO (09:11)
[2023-06-23] MEDS: GABAPENTIN 400 MG CAPSULE PO ×3 (09:11→17:41)
[2023-06-23] MEDS: ARIPiprazole 5 MG TABLET PO (09:11)
[2023-06-23] MEDS: SENNOSIDES 8.6 MG TABLET PO (09:11)
[2023-06-23] MEDS: DULoxetine HCL 60 MG CAPSULE.DR PO (09:11)
[2023-06-23] MEDS: FLUTICASONE PROPIONATE 0.05% NA SPR 16 GM BTL (*BKC) 1 SPRAY NASAL ×2 (09:21→20:39)
--- NOTE | 2023-06-23 09:29 | PM.IMPN ---
Progress Note: A&P Assessment and Plan (1) Septic shock: Code(s): A41.9 - Sepsis, unspecified organism; R65.21 - Severe sepsis with septic shock Status: Acute Assessment and Plan: Patient presented with altered mental status, hypotension, fevers, acute kidney injury, was found to have urinary tract infection on UA, CT scan showed 4 mm left distal ureter stone, s/p cystoscopy, left ureteral stent placement, retrograde pyelogram on 06/18/23 Meropenem started 06/18 06/20: discontinue vancomycin 06/18: blood cultures growing proteus mirabilis, ecoli is sensitive to meropenem, proteus is pansensitive 06/18: urine cultures growing ecoli and proteus mirabilis, pansensitive Repeat bld cx ordered and pending 06/20, when this comes back negative, would d/c on macrobid for the ESBL ecoli and augmentin for the proteus to complete a 7 day course, end date 06/25 (2) Pyelonephritis: Code(s): N12 - Tubulo-interstitial nephritis, not specified as acute or chronic Status: Acute Assessment and Plan: Patient with pyelonephritis and left ureteral stone with hydronephrosis and hydroureter, status post left ureteral stent tx as above (3) Left ureteral stone: Code(s): N20.1 - Calculus of ureter Status: Acute Assessment and Plan: 06/22: voiding trial, then renal US to confirm resolution 06/23: failed voiding trial, awaiting urology recs for d/c (4) Acute kidney injury: Code(s): N17.9 - Acute kidney failure, unspecified Status: Acute Assessment and Plan: Patient's baseline creatinine is 0.7-1.0, down to 1.1 06/20, monitor Resolved (5) Acute metabolic encephalopathy: Code(s): G93.41 - Metabolic encephalopathy Status: Acute Assessment and Plan: Likely 2/2 above, improving, monitor (6) Anemia: Code(s): D64.9 - Anemia, unspecified Status: Acute Assessment and Plan: Monitor, stable Plan DVT prophylaxis: eliquis Stress ulcer prophylaxis: protonix IV q.12 hours Nutrition: regular diet Code Status: DNR Per keno dealer documentation: 06/19/2023: Discussed with family the daughter and updated with patient's condition plan of care, answered all questions 06/18/2023: Discussed with Adrienne and Janina, patient's daughters and updated with patient's condition and plan of care. They are aware that patient is on Levophed which is being gradually weaned. I did explain to them that patient did have a stone in his left ureter, guarded the left ureteral stent, patient did have purulent and foul-smelling urine once the stent was placed. Patient is on appropriate antibiotic, awaiting cultures. I answered all questions. They did confirm that patient is a DNR, and they do not want any heroic measures for him. Subjective Date/time seen: 06/23/23 09:29 Interval history: 72-year-old male with history of quadriplegia GI, sleep apnea and kidney stones is presenting from a nursing facility for altered mental status and currently being treated for septic shock, pyelonephritis, nephrolithiasis, acute kidney injury, status post cystoscopy, left ureteral stent placement, retrograde pyelogram on 06/18/23. No overnight events noted. No chest pain or shortness of breath. No nausea, vomiting or diarrhea. No fevers or chills. Much improved from yesterday. Eager to go home. Review of Systems Review of Systems: 12 point review of systems was assessed and was negative except as noted in the HPI Exam Narrative: General: No acute distress, alert and oriented per baseline HEENT: Atraumatic, normocephalic, mucous membranes moist CV: Regular rate and rhythm, S1, S2 Lungs: Clear to auscultation bilaterally, no rales or crackles noted, no wheezes, good air entry Abdomen: Soft, nontender, nondistended Extremities: Normal to inspection, trace nonpitting edema bilaterally Skin: No rashes noted, no lesions or wounds seen Psych: Euthymic, flattene
[2023-06-23] MEDS: ACETAMINOPHEN 325 MG TABLET 650 MG PO (10:17)
[2023-06-23 14:00] VITALS: BP 104/61; PULSE 91; RESP 12; TEMP 37.7; O2SAT 96
[2023-06-23] MEDS: ERTAPENEM 1 GM/NS 50 ML 1 GM/50 ML BAG IVPB (20:51)
[2023-06-23 20:59] VITALS: BP 102/59; PULSE 89; RESP 16; TEMP 37.8; O2SAT 95
[2023-06-24] VITALS (7 sets, daily range): BP systolic 105–112; BP diastolic 56–73; PULSE 86–103; RESP 14–22; TEMP 36.7–39.4; O2SAT 93–96
[2023-06-24 06:47] LABS: Basophils Percent Auto 0.4 % (0.2-1.2); Eosinophils Absolute Auto 0.3 K/mm3 (0-0.3); Eosinophils Percent Auto 2.5 % (0-4.4); Hematocrit 26.2 % (42.0-52.0); Immature Granulocyte Absolute 0.12 K/mm3 (0.00-0.031); Immature Granulocyte Percent A 1.2 % (0-0.5); Lymphocytes Absolute Auto 1.32 K/mm3 (0.9-3.2); Lymphocytes Percent Auto 13.5 % (18.3-44.2); Mean Corpuscular HGB Conc 30.5 g/dl (32-36); Mean Corpuscular Hemoglobin 28.2 pg (26-34); Mean Corpuscular Volume 92.3 fl (80-100); Mean Platelet Volume 9.7 fl (7.4-10.4); Monocytes Percent Auto 10.3 % (2.6-8.5); Neutrophils Absolute Auto 7.1 K/mm3 (1.3-6.7); Neutrophils Percent Auto 72.1 % (45.5-73.1); Platelet Count Result 202 k/mm3 (150-375); Red Blood Count 2.84 M/mm3 (4.6-6.20); Red Cell Distribution Width 15.9 % (11.5-14.5); White Blood Count 9.8 K/mm3 (4.5-10.0)
[2023-06-24 06:57] LABS: Alanine Aminotransferase 18 U/L (6-50); Albumin Level 3.1 g/dL (3.5-5.1); Alkaline Phosphatase 115 U/L (38-126); Anion Gap 9 mmol/L (8-16); Aspartate Amino Transferase 16 U/L (17-59); Bilirubin,Total 0.6 mg/dL (0.2-1.3); Blood Urea Nitrogen 21 mg/dL (9-20); Carbon Dioxide 16 mmol/L (22-30); Chloride 112 mmol/L (98-107); Estimated CRCL calculation 80 ml/min; Estimated Glomerular Filt Rate > 60; Glucose 86 mg/dL (65-110); Potassium 3.9 mmol/L (3.4-5.0); Sodium 137 mmol/L (137-145)
[2023-06-24] MEDS: DULoxetine HCL 60 MG CAPSULE.DR PO (08:33)
[2023-06-24] MEDS: BACLOFEN 10 MG TABLET PO ×2 (08:33→20:59)
[2023-06-24] MEDS: ARIPiprazole 5 MG TABLET PO (08:33)
[2023-06-24] MEDS: TOPIRAMATE 100 MG TABLET PO (08:33)
[2023-06-24] MEDS: GABAPENTIN 400 MG CAPSULE PO ×2 (08:33→12:16)
[2023-06-24] MEDS: PANTOPRAZOLE SODIUM IV 40 MG VIAL IV PUSH (08:33)
[2023-06-24] MEDS: APIXABAN 5 MG TABLET PO ×2 (08:33→20:59)
[2023-06-24] MEDS: FERROUS SULFATE 325 MG TABLET DR PO (08:33)
[2023-06-24] MEDS: SENNOSIDES 8.6 MG TABLET PO (08:33)
[2023-06-24] MEDS: ACETAMINOPHEN 325 MG TABLET 650 MG PO (14:32)
[2023-06-24 14:59] LABS: Influenza A QL RT-PCR Negative (Negative); Influenza B QL RT-PCR Negative (Negative); RSV RNA, RT-PCR Negative (Negative); SARS-CoV-2 RNA PCR Negative (Negative)
[2023-06-24] MEDS: FLUTICASONE PROPIONATE 0.05% NA SPR 16 GM BTL (*BKC) 1 SPRAY NASAL (21:00)
== END 2023-06-24 21:35 | DRG 853 ==
LOC: ANHED 06-18 01:23 → ANHICU 06-18 01:24 → ANH3MEDSUR 06-20 17:53
PROVIDERS: Internal Medicine; Urology; Admitting Provider Internal Medicine; Emergency Provider Emergency Medicine; PCP Family Medicine; Visit Provider Student in an Organized Health Care Education/Training Program
PROC: 0T778DZ Dilation of Left Ureter with Intraluminal Device, Via Natural or Artificial Opening Endoscopic (ICD-10-PCS; CPT 52352; principal; 2023-06-18 04:30)
DX: A41.9 Sepsis, unspecified organism (principal); G93.41 Metabolic encephalopathy; R65.21 Severe sepsis with septic shock; N13.6 Pyonephrosis; N17.9 Acute kidney failure, unspecified; E87.21 Acute metabolic acidosis; K59.2 Neurogenic bowel, not elsewhere classified; B96.4 Proteus (mirabilis) (morganii) as the cause of diseases classified elsewhere; B96.20 Unspecified Escherichia coli [E. coli] as the cause of diseases classified elsewhere; D64.9 Anemia, unspecified; M19.90 Unspecified osteoarthritis, unspecified site; F41.1 Generalized anxiety disorder; G47.33 Obstructive sleep apnea (adult) (pediatric); M48.061 Spinal stenosis, lumbar region without neurogenic claudication; G40.909 Epilepsy, unspecified, not intractable, without status epilepticus; E78.5 Hyperlipidemia, unspecified; M81.0 Age-related osteoporosis without current pathological fracture; Z20.822 Contact with and (suspected) exposure to COVID-19; G25.81 Restless legs syndrome; Z66 Do not resuscitate; Z96.653 Presence of artificial knee joint, bilateral; Z96.641 Presence of right artificial hip joint; Z90.49 Acquired absence of other specified parts of digestive tract; Z87.891 Personal history of nicotine dependence; K59.00 Constipation, unspecified
CPT/HCPCS: 36415; 36556; 36600; 70450; 71045; 74018; 74176; 74420; 76775; 80053; 81001; 82274; 82375; 82550; 82607; 82746; 82805; 83050; 83540; 83550; 83605; 83735; 84100; 84484; 85025; 85610; 85730; 86140; 87040; 87077; 87086; 87088; 87186; 87635; 87637; 93005; 94002; 96365; 99285; A9270; C1751; C1758; C1769; C2617; C9113; J0696; J1335; J2185; J2704; J3370; J3480; J7030; J7040; J7070; Q9966

== ENCOUNTER 2023-07-22 13:21 | Outpatient (CLI) | payer MEDICARE, SELFPAY ==
--- NOTE | ~2023-07-22 | CT_ITS ---
EXAMINATION: CT abdomen pelvis wo con DATE: 07/22/2023 14:02 INDICATION: Left ureteral stone TECHNIQUE: Computed tomography (CT) of the abdomen and pelvis was performed without intravenous contr ast. The dose-length product was 315.45 mGy-cm. Automated exposure control and iterative reconstructi on technique were employed. COMPARISON: CT dated 06/18/2023 FINDINGS: Persistent small stone at the left UVJ measuring 2 mm adjacent to left internal ureteral st ent, image 160. Interval resolution of left hydronephrosis. There is persistent mild left perinephric edema. There are nonobstructing bilateral renal stones. There are changes of gastric bypass. There i s fecal impaction of the colon. There are bilateral hip arthroplasties. There are cholecystectomy cli ps. There is dependent atelectasis. Groundglass opacities present in the lower lobes. Cannot exclude pneumonia. There are chronic fractures of multiple vertebral bodies with severe lumbar spondylosis. T here are changes of vertebroplasty at T12. IMPRESSION: 1. Persistent 2 mm left UVJ stone resides adjacent to the left internal ureteral stent. Near-complete resolution of left hydronephrosis. 2: Nonobstructing bilateral nephrolithiasis. 3: Patchy groundglass opacities of the lower lobes which may represent atelectasis and/or pneumonia. 4: Fecal impaction of the colon Reviewed, dictated and finalized at location L. IMPRESSION: 1. Persistent 2 mm left UVJ stone resides adjacent to the left internal uretera l stent. Near-complete resolution of left hydronephrosis. 2: Nonobstructing bilateral nephrolithiasis. 3: Patchy groundglass opacities of the lower lobes which may represent atelect asis and/or pneumonia. 4: Fecal impaction of the colon
--- NOTE | ~2023-07-22 | XR_ITS ---
XR abdomen/kub 1V 07/22/2023 14:07 INDICATION: Left ureteral stone TECHNIQUE: KUB COMPARISON: Comparison to multiple prior studies sequentially, with oldest reviewed study dated 05/02. FINDINGS: Bowel gas pattern is normal. There is fecal impaction of the colon. There is a left interna l ureteral stent in expected position. There are surgical changes of both hips unchanged. There are c hanges of right inguinal hernia repair. There is no evidence of free air, mass, organomegaly, ascites or obstruction. No abnormal calculi are seen. Chronic compression deformities of the lower thoracic and lumbar spine with scoliosis. IMPRESSION: 1: Fecal impaction of the colon.. Reviewed, dictated and finalized at location B.
== END 2023-07-22 13:22 | disposition home or self-care (01) ==
PROVIDERS: PCP Family Medicine; Visit Provider Nurse Practitioner Adult Health
DX: N20.2 Calculus of kidney with calculus of ureter (principal); K56.41 Fecal impaction; R91.8 Other nonspecific abnormal finding of lung field
CPT/HCPCS: 74018; 74176

== ENCOUNTER 2023-08-07 00:43 | Day surgery (SDC) | payer MEDICARE, SELFPAY ==
[2023-07-26 14:16] VITALS: BMI 37.0
--- NOTE | 2023-07-26 14:32 | PC.NURSE ---
PRE-OP INSTRUCTIONS, PLEASE READ CAREFULLY Report to the Outpatient Waiting Room, entrance under the green pavilion located off [facility], at time __1215__ on date _08/07/23__. Planned Procedure Time: __2:15 PM_. Time changes happen often and if your time is changed the preop area will call you the afternoon before. - You and your visitor will be asked to self-screen and do not enter if you have any COVID symptoms. - A mask is optional within the hospital at this time. Patients may have clear liquids (water, carbonated beverages, clear teas, apple juice) until 3 hours prior to surgery (1115 AM) with a maximum of 20 ounces. - No food from midnight until time of surgery Take the following medications with a SIP of water the morning of surgery: _ARIPIPRAZOLE, BACLOFEN, DULOXETINE, GABAPENTIN, TOPIRAMATE, & TYLENOL, TIZANIDINE, NASAL SPRAY IF NEEDED_ DO NOT STOP ANY OF YOUR OTHER PRESCRIPTION MEDICATIONS PRIOR TO SURGERY ?EXCEPT THE FOLLOWING Medications to discontinue _ELIQUIS PER DR. HINDS'S INSTRUCTIONS_ Medications to discontinue per ANESTHESIA - _MULTIVITAMIN 3 DAYS PRIOR TO SURGERY, Date to take last dose 08/03/23_ Please no make-up, nail congolese, hairspray, perfume, deodorant, or body powder the day of surgery. No jewelry (including any body piercings) or valuables the day of surgery, leave them at home. Please take a shower or bath the night before, or the morning of, surgery with an antibacterial soap. Wear comfortable, loose fitting clothing. - Jewelry must be removed prior to entering the operating room. Rings and piercings that are not removed may be cut off. - The hospital will not accept responsibility for valuables. - Please leave all valuables, including medications, at home the day of surgery. If you are going home after surgery, a licensed cdl driver must drive you home. - NO public transportation without another adult if you receive anesthesia. - We recommend that an adult stay with you for 24 hours following discharge. - We also recommend that you do not drive, make important decision, drink alcoholic beverages, or take any drugs that were not prescribed by your health care provider for at least 24 hours after your discharge time. Follow any additional instructions given to you from your surgeon. If you or anyone in your household have experienced Covid symptoms in the past week, please notify your surgeon or the nurse liaison at the phone number below for possible testing. Instructions FAXED to _[facility]_and asked if any additional questions and then verbalized understanding. Patient advised to call surgeon office or pre surgery nurse liaison [phone] if any additional questions.
--- NOTE | 2023-08-06 12:54 | WPDANESEPPF ---
Anes - Initial Pre Proc Eval Procedure: Operation Date: 08/07/23 13:30 Proposed Procedures p Left Ureteroscopy, Left Retrograde Pyelogram, Left Stone Extraction, Possible Left Stent Placement, Possible Holmium Laser - Alida Joseph MD Date/Time: 08/06/23 12:54 Surgeon: Alida Joseph MD Pre Op Diagnosis: Left Ureteral Stone Patient Data Age: 72 Gender: M Height: 1.63 m Weight: 98 kg Allergies Allergy/AdvReac Type Severity Reaction Status Date / Time Sulfa (Sulfonamide Allergy Unknown Unknown Verified 07/26/23 14:15 Antibiotics) Home Medications Medication Instructions Recorded Confirmed Type gabapentin 300 mg capsule 400 mg PO TID idiopathic 10/05/22 07/26/23 History peripheral autonomic neuropathy duloxetine 60 mg capsule,delayed 60 mg PO DAILY 11/07/22 07/26/23 History release Thera M 1 tab-cap PO QAM 06/18/23 07/26/23 History acetaminophen 325 mg tablet 650 mg PO Q6H 06/18/23 07/26/23 History apixaban 5 mg tablet (Eliquis) 5 mg PO BID 06/18/23 07/26/23 History aripiprazole 5 mg tablet 5 mg PO DAILY 06/18/23 07/26/23 History baclofen 10 mg tablet 5 mg PO DAILY 06/18/23 07/26/23 History baclofen 10 mg tablet 10 mg PO Q12H 06/18/23 07/26/23 History bisacodyl 10 mg RECTAL DAILY PRN Constipation 06/18/23 07/26/23 History calcium carbonate 500 mg-vitamin 1 tablet PO QAM 06/18/23 07/26/23 History D3 5 mcg (200 unit) tablet (Oyster Shell Calcium-Vitamin D3) cyanocobalamin (vitamin B-12) 1,000 mcg PO DAILY 06/18/23 07/26/23 History 1,000 mcg tablet (Vitamin B-12) denosumab 1 ml subcut [id number] 06/18/23 07/26/23 History docusate sodium 283 mg enema 283 mg RECTAL QPM PRN Constipation 06/18/23 07/26/23 History famotidine 20 mg tablet 20 mg PO Q12H 06/18/23 07/26/23 History ferrous sulfate 325 mg (65 mg 325 mg PO DAILY 06/18/23 07/26/23 History iron) tablet fluticasone propionate 50 1 spray intranasal Q12H 06/18/23 07/26/23 History mcg/actuation nasal spray,suspension melatonin 3 mg tablet 3 mg PO QHS PRN difficulty sleeping 06/18/23 07/26/23 History polyethylene glycol 3350 17 gram 17 g PO DAILY 06/18/23 07/26/23 History oral powder packet sennosides 8.6 mg tablet 8.6 mg PO QAM 06/18/23 07/26/23 History tizanidine 2 mg tablet 2 mg PO BID PRN Muscle Spasm 06/18/23 07/26/23 History topiramate 100 mg tablet 100 mg PO QAM 06/18/23 07/26/23 History Patient hx anesthesia problems: none Family hx anesthesia problems: none Results Review: All pre-operative results and documents have been reviewed as part of the pre-operative evaluation. [facility] Past Medical History Medical History (Updated 08/06/23 @ 12:55 by Tavares Alexis DO) Arthritis C. difficile colitis 12/2022 ED (erectile dysfunction) of organic origin RAYNA (generalized anxiety disorder) Gastritis Globus sensation Grade II internal hemorrhoids History of seizure disorder Following meningitis as a child Hyperlipidemia Left ureteral stone Lumbar stenosis Metal bone fixation hardware in place NATHANIEL on CPAP Osteoporosis Quadriplegia Restless leg syndrome Seizure 2014 Spinal stenosis in cervical region Surgical History Surgical History (Updated 06/18/23 @ 03:40 by Annette Jarrell DO) H/O cervical spine surgery (04/2023) History of appendectomy History of back surgery History of bilateral knee replacement (~2000) History of brain surgery Right temporal craniotomy with 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 Performed by Dr. Estrada History of esophagogastroduodenoscopy (EGD) (12/2022) Hiatal hernia and gastritis History of hernia repair History of repair of congenital atrial septal defect (ASD) History of sinus surgery (~1994) History of tonsillectomy History of total right hip replacement S/P patent foramen ovale closure Status post lumbar spine surgery for decompress
[2023-08-07] VITALS (10 sets, daily range): BP systolic 102–147; BP diastolic 65–91; PULSE 64–82; RESP 12–18; TEMP 36.6–37; O2SAT 100
--- NOTE | ~2023-08-07 | XR_ITS ---
EXAMINATION: XR retrograde pyelo w/stent LT DATE: 08/07/2023 14:54 INDICATION: Left internal ureteral stent placement TECHNIQUE: Fluoroscopic images from a left internal ureteral stent placement are submitted for review . 54 seconds of fluoroscopy time. 4 fluoroscopic images. FINDINGS: There is a left double-J internal ureteral stent projecting in expected position, with proximal Tignall loop at the level of the renal pelvis and distal loop in the pelvis within the bladder lumen. IMPRESSION: 1. Left internal ureteral stent placement. Please refer to real-time procedural findings for detail s. Reviewed, dictated and finalized at location B. IMPRESSION: 1. Left internal ureteral stent placement. Please refer to real-time procedur al findings for details.
[2023-08-07 12:58] LABS: Hematocrit 32.4 % (42.0-52.0); Hemoglobin 9.9 g/dL (14.0-18.0)
[2023-08-07] MEDS: ACETAMINOPHEN 500 MG TABLET 1000 MG PO (13:40)
[2023-08-07] MEDS: LACTATED RINGERS 1,000 ML 30 ML IV CONT (13:40)
--- NOTE | 2023-08-07 13:48 | WPDHPUPDATE1 ---
History and Physical Update Update Date/Time: 08/07/23 13:48 History and Physical has been reviewed, including an updated exam of the patient. There are NO changes in the patient's condition. Risks, benefits, and alternatives have been discussed and questions answered. Patient agrees to proceed with procedure.
[2023-08-07] MEDS: MEROPENEM 1 GM/NS 100 ML 1 GM/100 ML BAG IVPB (13:51)
[2023-08-07] MEDS: LIDOCAINE HCL 2% GEL UROJET 10 ML PKG MUCOUS MEM (15:00)
--- NOTE | 2023-08-07 15:02 | P.OP_ITS ---
Procedure Note - Detailed Date of Procedure 08/07/23 Pre-op Diagnosis Left Ureteral Stone Post-op Diagnosis Same Procedure Performed Cystoscopy, left ureteroscopy, left retrograde pyelogram, stone extraction, stent exchange Surgeon Alida Joesph MD Anesthesia General Findings Obstructed distal ureteral stone, multiple small left lower pole stones Description of Procedure Informed consent was obtained. Patient taken the operating. Preoperative IV antibiotics with meropenem. He was induced with anesthesia. He was prepped and draped in sterile fashion. A 22 F rigid cystoscope inserted through the urethra into the bladder. We grasped the stent and pulled out to the urethral meatus. A cannulated wire through the previous stent and achieved 2 wire access. Dilation performed with an 810 coaxial dilator. We then advanced a rigid ureteral scope into the distal ureter and encountered a stone in the distal ureter approximately 2cm proximal to the UVJ. The stone was rather impacted we were able to free it from the ureter and grasped with a Zero tip basket. The stone fragmented into 2 pieces and these were removed and sent as specimen. We then inspected the distal 2/3 of the ureter with the rigid scope and there were no residual stones. Retrograde pyelogram was performed showing moderate hydronephrosis without extravasation. Over the wire we advanced a flexible ureteral scope into the renal pelvis. We inspected each calyx under fluorosc opic guidance. The lower pole there were multiple small stones. Stones were grasped with ZeroTip basket and then removed, leaving only small stone fragments that were too small to be basketed. We then performed another retrograde pyelogram inspected each calyx again there were no significant residual stones. We inspected the length of the ureter there were no stones or injury. Over a wire a 6 F variable length stent was placed. The bladder was emptied. Lidocaine instilled. Patient was awakened and taken to PACU in stable condition Pathology Yes Complications No immediate complications Condition Stable Disposition PACU
== END 2023-08-07 17:26 | disposition home or self-care (01) ==
PROVIDERS: Anesthesiology; PCP Family Medicine; Visit Provider Urology
PROC: (CPT 52352; principal; 2023-08-07 13:30)
DX: N20.1 Calculus of ureter (principal); G40.909 Epilepsy, unspecified, not intractable, without status epilepticus; E78.5 Hyperlipidemia, unspecified; G47.33 Obstructive sleep apnea (adult) (pediatric); M81.0 Age-related osteoporosis without current pathological fracture; G25.81 Restless legs syndrome; G82.50 Quadriplegia, unspecified; F41.1 Generalized anxiety disorder; Z79.01 Long term (current) use of anticoagulants; E66.9 Obesity, unspecified; Z68.29 Body mass index [BMI] 29.0-29.9, adult
CPT/HCPCS: 52332; 52352; 36415; 74420; 82365; 85014; 85018; 88300; A9270; C1758; C1769; C2617; J0690; J1100; J1200; J2185; J2371; J2405; J2704; J3010; J7120; Q9966

== ENCOUNTER 2023-08-21 00:48 | Day surgery (SDC) | payer MEDICARE, SELFPAY ==
[2023-08-14 14:45] VITALS: BMI 29.5
--- NOTE | 2023-08-14 14:59 | PC.NURSE ---
PRE-OP INSTRUCTIONS, PLEASE READ CAREFULLY Report to the Outpatient Waiting Room, entrance under the green pavilion located off [facility], at time _1000_ on date _08/21/23_. Planned Procedure Time: _1200_. Time changes happen often and if your time is changed the preop area will call you the afternoon before. - You and your visitor will be asked to self-screen and do not enter if you have any COVID symptoms. - A mask is optional within the hospital at this time. Patients may have clear liquids (water, carbonated beverages, clear teas, apple juice) until 3 hours prior to surgery (0900 AM) with a maximum of 20 ounces. - No food from midnight until time of surgery Take the following medications with a SIP of water the morning of surgery: _ABILIFY, BACLOFEN, DULOXETINE, GABAPENTIN, TOPIRAMATE, - TYLENOL & TIZANIDINE IF NEEDED_ DO NOT STOP ANY OF YOUR OTHER PRESCRIPTION MEDICATIONS PRIOR TO SURGERY ?EXCEPT THE FOLLOWING Medications to discontinue - _ELIQUIS PER DR. HINDS'S INSTRUCTIONS_ Medications to discontinue per ANESTHESIA - MULTIVITAMIN 3 DAYS PRIOR TO SURGERY, Date to take last dose 08/17/23_ Please no make-up, nail cuban, hairspray, perfume, deodorant, or body powder the day of surgery. No jewelry (including any body piercings) or valuables the day of surgery, leave them at home. Please take a shower or bath the night before, or the morning of, surgery with an antibacterial soap. Wear comfortable, loose fitting clothing. - Jewelry must be removed prior to entering the operating room. Rings and piercings that are not removed may be cut off. - The hospital will not accept responsibility for valuables. - Please leave all valuables, including medications, at home the day of surgery. If you are going home after surgery, a licensed commercial driver's license driver must drive you home. - NO public transportation without another adult if you receive anesthesia. - We recommend that an adult stay with you for 24 hours following discharge. - We also recommend that you do not drive, make important decision, drink alcoholic beverages, or take any drugs that were not prescribed by your health care provider for at least 24 hours after your discharge time. Follow any additional instructions given to you from your surgeon. If you or anyone in your household have experienced Covid symptoms in the past week, please notify your surgeon or the nurse liaison at the phone number below for possible testing. Telephone instructions given/FAXED to _[facility]_and asked if any additional questions and then verbalized understanding. Patient advised to call surgeon office or pre surgery nurse liaison [phone] if any additional questions.
[2023-08-21] MEDS: ACETAMINOPHEN 500 MG TABLET 1000 MG PO (10:45)
[2023-08-21 11:19] VITALS: BP 148/87; PULSE 72; RESP 14; TEMP 36.9; O2SAT 97
[2023-08-21] MEDS: MEROPENEM 1 GM/NS 100 ML 1 GM/100 ML BAG IVPB (11:39)
--- NOTE | 2023-08-21 12:27 | WPDHPUPDATE1 ---
History and Physical Update Update Date/Time: 08/21/23 12:27 cystoscopy and left stent removal today History and Physical has been reviewed, including an updated exam of the patient. There are NO changes in the patient's condition. Risks, benefits, and alternatives have been discussed and questions answered. Patient agrees to proceed with procedure.
--- NOTE | 2023-08-21 12:28 | PM.IMHP ---
H&P: HPI History of Present Illness Date/Time: 08/21/23 12:28 Chief Complaint: stent removal [facility] Past Medical History Medical History (Updated 08/06/23 @ 12:55 by Tavares Alexis DO) Arthritis C. difficile colitis 12/2022 ED (erectile dysfunction) of organic origin RAYNA (generalized anxiety disorder) Gastritis Globus sensation Grade II internal hemorrhoids History of seizure disorder Following meningitis as a child Hyperlipidemia Left ureteral stone Lumbar stenosis Metal bone fixation hardware in place NATHANIEL on CPAP Osteoporosis Quadriplegia Restless leg syndrome Seizure 2014 Spinal stenosis in cervical region Surgical History Surgical History (Updated 06/18/23 @ 03:40 by Annette Jarrell DO) H/O cervical spine surgery (04/2023) History of appendectomy History of back surgery History of bilateral knee replacement (~2000) History of brain surgery Right temporal craniotomy with 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 Performed by Dr. Estrada History of esophagogastroduodenoscopy (EGD) (12/2022) Hiatal hernia and gastritis History of hernia repair History of repair of congenital atrial septal defect (ASD) History of sinus surgery (~1994) History of tonsillectomy History of total right hip replacement S/P patent foramen ovale closure Status post lumbar spine surgery for decompression of spinal cord Status post open reduction with internal fixation of fracture (2009) Left hip intramedullary nail following trauma Family History Family History Mother Osteoporosis Breast cancer Father Malignant neoplasm of prostate Social History Social History (Updated 06/18/23 @ 03:47 by Annette Jarrell DO) Social History: He was living with his of 50 years. He has been in out of various rehab facilities and correction facility since his lumbar surgery in 2021 and has been persistently in a rehab facility since his cervical spine surgery in April or May of 2022. He and his have 2 daughter and 7 grandchildren. He is a former smoker. He does not drink alcohol. 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 He is currently at [facility] Code status: DNR/DNI Healthcare power of insurance attorney/legal guardian: Adrienne (OB nurse) and Keshia (daughters) Smoking status: Never smoker Second hand tobacco smoke exposure: No Alcohol intake: never Substance use: never Substance use type: does not use Lack of Transportation: No Lack of Food: Never True Current Housing: I Have Housing Concerned About Future Housing: No Difficulty Paying Gas/Electric Bills: No Difficulty Paying for Meds: No Currently Unemployed: No Education: High School Diploma/GED Difficulty w/ Childcare or Family Care: No Living arrangements: retirement Additional living arrangements comments: [facility] Occupation/Education: retired Gender identity (if verbalized by the patient): Male Sexual Orientation (if Verbalized by the Patient): Straight or Heterosexual Spiritual care concerns: No Agree to blood products: Yes Meds Home Medications and Allergies Home Medications Medication Instructions Recorded Confirmed Type gabapentin 300 mg capsule 400 mg PO TID idiopathic 10/05/22 08/14/23 History peripheral autonomic neuropathy duloxetine 60 mg capsule,delayed 60 mg PO DAILY 11/07/22 08/14/23 History release Thera M 1 tab-cap PO QAM 06/18/23 08/14/23 History acetaminophen 325 mg tablet 650 mg PO Q6H 06/18/23 08/14/23 History apixaban 5 mg tablet (Eliquis) 5 mg PO BID 06/18/23 08/14/23 History aripiprazole 5 mg tablet (Abilify) 5 mg PO DAILY 06/18/23 08/14/23 History baclofen 10 mg tablet 5 mg PO DAILY 06/18/23 08/14/23 History baclofen 10 mg tablet 10 mg PO Q12H 06/18/23 08/14/23 History
[2023-08-21] MEDS: LIDOCAINE HCL 2% GEL UROJET 10 ML PKG MUCOUS MEM (13:11)
[2023-08-21 13:19] VITALS: BP 160/82; PULSE 73; RESP 16; O2SAT 97
[2023-08-21 13:24] VITALS: BP 162/86; PULSE 72; RESP 16; O2SAT 96
--- NOTE | 2023-08-21 13:27 | W.PM.PROC2 ---
Procedure Note - Detailed Date of Procedure 08/21/23 Pre-op Diagnosis left ureteral stone Post-op Diagnosis Same Procedure Performed Cystoscopy, left ureteral stent removal Surgeon Alida Joseph MD Anesthesia Local Description of Procedure Informed consent obtained. Patient taken the operating. He was given preoperative IV antibiotics with meropenem. Lidocaine Uro jet instilled. A flexible cystoscope was inserted through the urethra into the bladder. Patient had mild bilobar prostatic hyperplasia. The ureteral stent was identified, grasped, and removed. Patient tolerated procedure well. He was taken recovery room stable condition. Plan follow-up renal ultrasound in 1 month Pathology None sent Complications No immediate complications Condition Stable Disposition PACU
[2023-08-21 13:33] VITALS: BP 136/86; PULSE 72; RESP 12; O2SAT 99
== END 2023-08-21 14:12 | disposition home or self-care (01) ==
PROVIDERS: PCP Family Medicine; Visit Provider Urology
PROC: (CPT 52310; principal; 2023-08-21 12:00)
DX: N20.1 Calculus of ureter (principal); N40.0 Benign prostatic hyperplasia without lower urinary tract symptoms; F41.1 Generalized anxiety disorder; E78.5 Hyperlipidemia, unspecified; G47.33 Obstructive sleep apnea (adult) (pediatric); Z99.89 Dependence on other enabling machines and devices; Z79.01 Long term (current) use of anticoagulants; Z87.891 Personal history of nicotine dependence; Z80.42 Family history of malignant neoplasm of prostate; Z80.3 Family history of malignant neoplasm of breast
CPT/HCPCS: 52310; A9270; J2185

== ENCOUNTER 2023-10-03 09:20 | Outpatient (CLI) | payer MEDICARE, SELFPAY ==
--- NOTE | ~2023-10-03 | XR_ITS ---
EXAMINATION: XR abdomen/kub 1V INDICATION: Calculus of the kidney TECHNIQUE: Supine views of the abdomen were obtained on 2 radiographs. COMPARISON: 07/22/2023 FINDINGS: A left internal ureteral stent has been removed. No definite left-sided urolithiasis is bhaskar ntified. There is a 10 mm stone of the right kidney. There are lumbar compression fractures with vert ebroplasty change. Bilateral hip surgeries are noted. There appear to be changes of right inguinal he rnia repair. A moderate volume of colonic stool is present. IMPRESSION: 1. Right nephrolithiasis. No definite left-sided urolithiasis identified. Reviewed, dictated and finalized at location L. E CUFFER
--- NOTE | ~2023-10-03 | MR_ITS ---
EXAMINATION: MR cervical spine wo con DATE: 10/03/2023 10:20 INDICATION: Upper extremity weakness TECHNIQUE: Magnetic resonance imaging (MRI) of the cervical spine was performed without intravenous c ontrast. Sequences included sagittal T2-weighted FSE, sagittal fluid sensitive FSE STIR, sagittal T1- weighted FSE, axial MERGE and axial T2-weighted FSE. COMPARISON: None FINDINGS: Postoperative change of prior C3-C7 laminectomies as well as laminectomies at T2 and T3 and partial l aminectomy at T1. Bone alignment is normal. Metallic magnetic field artifact associated with bilatera l vertical manpreet and lateral mass/pedicle screw fixation for instrumented posterior spinal fusion exten ding from C2 through T4. Vertebral body heights are normal with Schmorl's nodes along the superior en dplates of T1 and T2. Bone marrow signal intensity is normal. Severe disc height loss at C6-C7. Mild disc height loss at C5-C6. Cord signal intensity is normal. Chronic 3.3 cm hyperdense T2 hyperintense right thyroid nodule which is without significant change dating back to ultrasound dated 08/07/2007. Postoperative scarring in the soft tissues posterior to the cervical and upper thoracic spine. The m agnetic field artifact associated with the posterior spinal fusion limits assessment of the facet and uncovertebral joints as well as the neural foramina throughout the cervical spine. The following dis c levels are specifically discussed: C2-C3: The disc does not extend beyond the endplate margin. There is mild right and moderate left unc overtebral joint osteoarthritis. There is mild bilateral neural foraminal stenosis. There is mild richard tral canal stenosis. C3-C4: Disc is bulging. There is moderate left and severe right uncovertebral joint osteoarthritis. T here is moderate right and moderate to severe left neural foraminal stenosis. There is posterior deco mpression with no central canal stenosis. C4-C5: Disc is bulging. There is mild left and moderate right uncovertebral joint osteoarthritis. The re is bilateral neural foraminal stenosis. There is posterior decompression with no central canal luis nosis. C5-C6: Disc is bulging. There is mild left and moderate right uncovertebral joint osteoarthritis. The re is mild left and moderate right neural foraminal stenosis. There is posterior decompression with n o central canal stenosis. C6-C7: Disc is bulging. There is severe bilateral uncovertebral joint osteoarthritis. There is modera te left and moderate to severe right neural foraminal stenosis. There is posterior decompression with no central canal stenosis. C7-T1: The disc does not extend beyond the endplate margin. There is an annular fissure. There is mil d bilateral uncovertebral joint osteoarthritis. There is mild left and mild to moderate right neural foraminal stenosis. There is mild central canal stenosis. T1-T2: The disc does not extend beyond the endplate margin. There is an annular fissure. There is mod erate bilateral neural foraminal stenosis. There is posterior decompression at T2 with mild central c anal stenosis at the cephalad margin of the disc space and no more central canal stenosis at the leve l of T2. IMPRESSION: 1. Severe lower cervical spondylosis with instrumented C3-T4 posterior spinal fusion with associated partial laminectomy at T1 and laminectomies at the remaining levels from C3 through T3. Reviewed, dictated and finalized at location A. CENTER TEAM LEADER IMPRESSION: 1. Severe lower cervical spondylosis with instrumented C3-T4 posterior spinal f usion with associated partial laminectomy at T1 and laminectomies at the remain ing levels from C3 through T3.
== END 2023-10-03 09:21 | disposition home or self-care (01) ==
PROVIDERS: PCP Family Medicine; Referring Provider Physician Assistant
DX: N20.0 Calculus of kidney (principal); R29.898 Other symptoms and signs involving the musculoskeletal system; M43.02 Spondylolysis, cervical region; M43.23 Fusion of spine, cervicothoracic region; Z98.890 Other specified postprocedural states
CPT/HCPCS: 72141; 74018

== ENCOUNTER 2023-10-23 12:37 | Outpatient (CLI) | payer MEDICARE, SELFPAY ==
--- NOTE | 2023-10-23 14:30 | NEURO_ITS ---
Impression: # Non-diabetic status ,post cervical spine surgery, complains of upper extremity weakness. # Diffuse upper extremity muscles decreased motor unit potentials with no fibrillations or myotonia; Suggestive of old chronic involvement at the cervical level. # Mild incidental Carpal Tunnel Syndrome, right more than left. # Clinical correlation recommended. Nerve Conduction Studies Anti Sensory Summary Table Stim Site NR Peak (ms) P-T Amp (?V) Site1 Site2 Delta-P (ms) Dist (cm) Herrera (m/s) Left Median Anti Sensory (2-3nd Digit) NO RESPONSE Wrist 3.5 20.6 Wrist 2-3nd Digit 3.5 14.0 40 Wrist NR Wrist 2-3nd Digit 3.5 14.0 40 Right Median Anti Sensory (2-3nd Digit) NO RESPONSE Wrist NR Wrist 2-3nd Digit 14.0 Wrist NR Wrist 2-3nd Digit 14.0 Left Radial Anti Sensory (Base 1st Digit) Wrist 2.9 28.7 Wrist Base 1st Digit 2.9 0.0 Right Radial Anti Sensory (Base 1st Digit) Wrist 2.6 17.2 Wrist Base 1st Digit 2.6 0.0 Left Ulnar Anti Sensory (5th Digit) Wrist 4.8 14.4 Wrist 5th Digit 4.8 14.0 29 Right Ulnar Anti Sensory (5th Digit) Wrist 3.7 4.1 Wrist 5th Digit 3.7 14.0 38 Motor Summary Table Stim Site NR Onset (ms) O-P Amp (mV) Site1 Site2 Delta-0 (ms) Dist (cm) Herrera (m/s) Left Median Motor (Abd Poll Brev) Wrist 4.9 1.6 Elbow Wrist 5.0 26.0 52 Elbow 9.9 1.4 Right Median Motor (Abd Poll Brev) Wrist 5.5 1.1 Elbow Wrist 5.9 25.0 42 Elbow 11.4 0.8 Left Ulnar Motor (Abd Dig Minimi) Wrist 3.5 1.1 A Elbow Wrist 6.0 29.0 48 A Elbow 9.5 0.5 Right Ulnar Motor (Abd Dig Minimi) Wrist 4.1 0.8 A Elbow Wrist 6.0 28.0 47 A Elbow 10.1 0.8 F Wave Studies NR F-Lat (ms) L-R F-Lat (ms) Left Median (Mrkrs) (Abd Poll Brev) 31.00 0.52 Right Median (Mrkrs) (Abd Poll Brev) 31.52 0.52 Left Ulnar (Mrkrs) (Abd Dig Min) 32.87 0.41 Right Ulnar (Mrkrs) (Abd Dig Min) 32.46 0.41 EMG Side Muscle Nerve Root Ins Act Fibs Amp Dur Recrt Comment Right 1stDorInt Ulnar C8-T1 Nml Nml Decr >12ms Reduced Right Ext Indicis Radial (Post Int) C7-8 Nml Nml Decr >12ms Reduced Right Ext Digitorum Radial (Post Int) C7-8 Nml Nml Decr >12ms Reduced Right BrachioRad Radial C5-6 Nml Nml Decr >12ms Reduced Right PronatorTeres Median C6-7 Nml Nml Decr >12ms Reduced Right Abd Poll Brev Median C8-T1 Nml Nml Decr >12ms Reduced Left 1stDorInt Ulnar C8-T1 Nml Nml Decr >12ms Reduced Left Ext Indicis Radial (Post Int) C7-8 Nml Nml Decr >12ms Reduced Left Ext Digitorum Radial (Post Int) C7-8 Nml Nml Decr >12ms Reduced Left BrachioRad Radial C5-6 Nml Nml Decr >12ms Reduced Left PronatorTeres Median C6-7 Nml Nml Decr >12ms Reduced Left Abd Poll Brev Median C8-T1 Nml Nml Decr >12ms Reduced Right ABD Dig Min Ulnar C8-T1 Nml Nml Decr >12ms Reduced Right Biceps Musculocut C5-6 Nml Nml Decr >12ms Reduced Right Triceps Radial C6-7-8 Nml Nml Decr >12ms Reduced Left ABD Dig Min Ulnar C8-T1 Nml Nml Decr >12ms Reduced Left Biceps Musculocut C5-6 Nml Nml Decr >12ms Reduced Left Triceps Radial C6-7-8 Nml Nml Decr >12ms Reduced MTDD
== END 2023-10-23 12:38 | disposition home or self-care (01) ==
LOC: ANHNEURO 12:38
PROVIDERS: PCP Family Medicine
DX: R29.898 Other symptoms and signs involving the musculoskeletal system (principal); G56.03 Carpal tunnel syndrome, bilateral upper limbs; Z98.1 Arthrodesis status
CPT/HCPCS: 95886; 95911

== ENCOUNTER 2023-12-27 07:43 | Outpatient (CLI) | payer MEDICARE, SELFPAY ==
--- NOTE | ~2023-12-27 | XR_ITS ---
Helen, Aly Date of 1950 Supine and upright views of the abdomen Clinical history: Abdominal pain Findings: Large amount of stool present in the right colon. There is gaseous distention of the transv erse colon and descending colon. No evidence for obstruction or free air. No abnormal mass lesion or calcification is seen. Vertebroplasty cement present at T12 and L5. There is levoscoliosis with advan liv degenerative disc change throughout the lumbar spine. Possible mild chronic loss of height of L1, L2, and L3. Right hip arthroplasty present. Prior ORIF of the proximal left femur noted.. Impression: Large amount of stool in the right colon with gaseous distention of transverse colon and descending c olon. Osseous findings, as detailed above. Reviewed, dictated and finalized at location . Impression: Large amount of stool in the right colon with gaseous distention of transverse colon and descending colon. Osseous findings, as detailed above.
== END 2023-12-27 07:44 | disposition home or self-care (01) ==
PROVIDERS: PCP Family Medicine; Visit Provider Urology
DX: N20.0 Calculus of kidney (principal)
CPT/HCPCS: 74018

== ENCOUNTER 2024-01-02 12:38 | Outpatient (CLI) | payer MEDICARE, SELFPAY ==
--- NOTE | ~2024-01-02 | CT_ITS ---
EXAMINATION: CT abdomen pelvis wo con DATE: 01/02/2024 13:15 INDICATION: Kidney calculus TECHNIQUE: Computed tomography (CT) of the abdomen and pelvis was performed without intravenous contr ast. Automated exposure control and iterative reconstruction technique were employed. Exam dose: 230 .66 mGy-cm total exam DLP. COMPARISON: 07/22/2023 CT abdomen pelvis FINDINGS: , With elevation of left diaphragm. Atrial septal closure device is noted. Coronary artery calcification. No pericardial or pleural effusion. Status post cholecystectomy. The liver, spleen, pancreas, adrenal glands appear unremarkable on this limited noncontrast examinati on. Approximately 7.5 x 9 mm nonobstructing upper pole right renal calculus with attenuation of 1500 Houn sfield units is noted. There is a contiguous 3.5 x 5 mm upper pole nonobstructing right renal calculu s. No other urinary tract calculus or hydronephrosis is evident. No apparent renal mass lesion. Normal caliber of the abdominal aorta. No intraperitoneal or retroperitoneal or pelvic mass lesion or adenopathy or ascites. The visualized portion of the urinary bladder is unremarkable. The portions b ladder is obscured by extensive streak artifact from right hip arthroplasty. Compression screw and ro d are noted in the proximal left femur. There are multiple compression fracture deformities of the thoracic and lumbar spine. Status post irais tebroplasty at T12 and L5 compression fractures. Degenerative spurring of the thoracic spine. Severe multilevel degenerative disc disease of the lumba r spine. There is fusion at L3-4. IMPRESSION: Nonobstructive upper pole right nephrolithiasis Status post cholecystectomy Status post vertebroplasty at T12 L5. Multiple compression fracture deformities of the thoracic and l umbar spine Extensive degenerative changes of the thoracic and lumbar spine. Reviewed, dictated and finalized at Location A. Reviewed, dictated and finalized at location L. IMPRESSION: Nonobstructive upper pole right nephrolithiasis Status post cholecystectomy Status post vertebroplasty at T12 L5. Multiple compression fracture deformities of the thoracic and lumbar spine Extensive degenerative changes of the thoracic and lumbar spine.
== END 2024-01-02 12:39 | disposition home or self-care (01) ==
PROVIDERS: PCP Family Medicine; Visit Provider Urology
DX: N20.0 Calculus of kidney (principal); Z90.49 Acquired absence of other specified parts of digestive tract; M48.54XA Collapsed vertebra, not elsewhere classified, thoracic region, initial encounter for fracture
CPT/HCPCS: 74176

== ENCOUNTER 2024-05-29 07:47 | Outpatient (CLI) | payer MEDICARE, SELFPAY ==
--- NOTE | ~2024-05-29 | MR_ITS ---
MR cervical spine wo/w con Ordering provider: Karlie Simmons History: . CERVICAL MYELOPATHY . Comparison: None. Technique: MRI cervical spine with and without contrast enhancement. FINDINGS: CERVICAL SPINAL CORD/CRANIAL CERVICAL JUNCTION: Mild anterolisthesis at the level of T2-T3. Myelomala isabella at the same level is noted in the cord. Chronic loss of height of T1 and T2 is noted suggestive o f chronic compression fractures. Postoperative changes are seen posteriorly.Otherwise, Normal in sign al and caliber. No abnormal enhancement. CERVICAL VERTEBRAL BODIES: Normal height and alignment. Normal marrow signal. No abnormal marrow enha ncement. DISK SPACES: Narrowing of the disc C5-C6 and C6-C7 C2-C3: No stenosis. Left facet joint disease with prominent bones. C3-C4: No stenosis. Narrowing of the foramina bilaterally with nerve root compression. C4-C5: No stenosis. Narrowing of the right intervertebral foramen with root compression. C5-C6: No stenosis. Narrowing of the right foramen with root compression. C6-C7: No stenosis. C7-T1: No stenosis. VISUALIZED PARASPINOUS SOFT TISSUES: Normal. No abnormal enhancement. IMPRESSION: 1. No acute osseous abnormality. 2. 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 3. Multilevel intervertebral foraminal narrowing with root compression. 4. No abnormal enhancement seen. Reviewed, dictated and finalized at location A.
== END 2024-05-29 07:48 | disposition home or self-care (01) ==
LOC: ANHIMG 07:53
PROVIDERS: PCP Family Medicine
DX: G95.9 Disease of spinal cord, unspecified (principal)
CPT/HCPCS: 72156; A9577

== ENCOUNTER 2024-12-30 09:38 | Outpatient (CLI) | payer MEDICARE, SELFPAY ==
--- NOTE | ~2024-12-30 | XR_ITS ---
XR abdomen/kub 1V Ordering provider: Alida Joseph MD History: . calculus of kidney . Comparison: None. FINDINGS: BOWEL: Nonobstructive bowel gas pattern. ORGANOMEGALY: None. SIGNIFICANT PATHOLOGIC CALCIFICATIONS: Right kidney stones. The largest measures 1.2 cm. OTHER: No free air is seen under the diaphragm. Dextroscoliosis. Multilevel vertebroplasty. Degenerat magda changes of the spine. Right hip arthroplasty. Fixation of the left hip with manpreet and screw. A righ t sacroiliitis. Postoperative changes in the lower lumbar area. IMPRESSION: NO ACUTE ABDOMINAL FINDINGS. Right kidney stones. Reviewed, dictated and finalized at location A.
--- OUTSIDE RECORDS SUMMARY | 2024-12-30 10:46 | XMS_ITS | Referral Summary ---
Author Organization [facility] Address [address] [place] [address] Care Team Providers Care Wardsperson Name Role Phone Noel Castaneda MD PhD Unavailable [phone] Jeremias Chapa MD Primary Care Provider [phone] Allergies Active Allergy Reactions Criticality Noted Date Comments Sulfa (Sulfonamide Antibiotics) Hives,Other (See comments),Itching,Rash High 02/06/2019 Reaction: Hives, Sulfa (Sulfonamide Antibiotics) Blisters High 07/11/2022 Medications calcium carbonate-vitami n D3 1500 mg (600 mg elemental) -200 units per tablet Take 2 tablets by mouth daily 1200 mg & Vit D 1000 international units daily Active topiramate (TOPAMAX) 100 mg tablet Take 1 tablet (100 mg total) by mouth 2 (two) times a day 180 tablet 3 02/27/20 22 Active Additional Information Patient taking differently:100 mg oralDaily, Reported on 08/20/[address] (CYMBALTA) 30 mg capsuleIndicatio ns:Anxiety with Depression Take 1 capsule (30 mg total) by mouth nightly 05/10/20 22 Active gabapentin (NEURONTIN) 400 mg capsuleIndicatio ns:Neuropathic Pain Take 1 capsule (400 mg total) by mouth 3 (three) times a day Active famotidine (PEPCID) 40 mg tablet Take 0.5 tablets (20 mg total) by mouth 2 (two) times a day 02/05/20 23 Active denosumab (PROLIA) 60 mg/mL syringeIndicatio ns:Age-related osteoporosis without current pathological fracture Inject 1 mL (60 mg total) under the skin once for 1 dose Inject one syringe SC every six months 1 mL 06/07/20 Active furosemide (LASIX) 20 mg tablet Take 1 tablet (20 mg total) by mouth daily Take daily as needed for swelling 30 tablet 11 08/08/20 Active apixaban (ELIQUIS) 5 mg tablet Take 1 tablet (5 mg total) by mouth 2 (two) times a day 06/04/20 Active baclofen (LIORESAL) 5 mg tablet Take 1 tablet (5 mg total) by mouth every 8 (eight) hours as needed for muscle spasms 06/04/20 Active cyanocobalamin (Vitamin B-12) 1,000 mcg tablet Take 1 tablet (1,000 mcg total) by mouth daily 06/04/20 Active ferrous sulfate 325 mg (65 mg of elemental iron) tablet Take 1 tablet (325 mg total) by mouth daily 05/23/20 Active tiZANidine (ZANAFLEX) 2 mg tablet Take 1 tablet (2 mg total) by mouth as needed 06/04/20 Active bisacodyL (DULCOLAX) 10 mg suppository Insert 1 suppository (10 mg total) into the rectum daily as needed 06/04/20 Active docusate sodium (Enemeez) 283 mg/5 mL enema Insert 5 mL (283 mg total) into the rectum daily as needed 06/04/20 Active fluticasone propionate (FLONASE) 50 mcg/actuation nasal spray 06/04/20 Active melatonin tablet Take 2 tablets (6 mg total) by mouth daily as needed for sleep 06/04/20 Active senna (SENOKOT) 8.6 mg tablet Take 1 tablet by mouth daily 06/04/[address] (CYMBALTA) 60 mg capsule Take 1 capsule (60 mg total) by mouth every morning Active loperamide (IMODIUM) 2 mg capsule Take 1 capsule (2 mg total) by mouth 4 (four) times a day as needed for diarrhea Active polyethylene glycol (MIRALAX) 17 gram packetIndication s:constipation Take 1 packet (17 g total) by mouth as needed for constipation Active multivitamin tablet Take 1 tablet by mouth daily Active amoxicillin 500 mg tablet/capsule Take 4 tablet/capsule (2,000 mg total) by mouth as needed (Take 1 hour before each dental appt) Active mirabegron ER (MYRBETRIQ) 25 mg tablet extended release 24 hr Take 1 tablet (25 mg total) by mouth daily 08/05/20 24 Active Active Problems Problem Noted Date Diagnosed Date Reactive depression (situational) 01/23/2023 Left leg swelling 07/12/2022 Spinal stenosis of lumbar re gion with neurogenic claudication 07/12/2022 DVT, lower extremity, proximal, acute, left 06/15 Obstructive sleep apnea jose luis rodney with continuous positive airway pressure (CPAP) 07/12/2022 Low back pain 06/28/2022 Spinal stenosis, unspecified spinal region 06/18 Low back pain, unspecified b ack pain laterality, unspecified chronicity, unspecified whether sciatica present 06/12/2022 Carpal tunnel syndrome 05/17/2022 Pain in limb 05/17/2022 Localized, secondary osteoarthritis of the shoul johnny region 05/17/2022 Primary localized osteoarthrosis of shoulder reg ion 05/17/2022 Degenerative joint disease of shoulder region Lesion of ulnar nerve 05/17/2022 Hematoma 05/17/2022 Enthesopathy of hip region 05/17/2022 Synovial cyst of popliteal space 05/17/2022 Aftercare following joint replacement surgery Osteoarthritis of both shoulders 05/09/2022 Pain of left hip joint 04/13/2022 Trochanteric bursitis of left hip 03/02/2022 Pain of both shoulder joints 02/07/2022 Arthralgia of right knee 12/13/2021 Osteoarthritis 11/08/2021 Age-related osteoporosis wit hout current pathological fracture 02/15/2021 Temporal lobe epilepsy 02/20/2019 Lumbar discitis 01/06/2019 Chronic bilateral low back pain without sciatica 07/04/2018 Other idiopathic scoliosis, lumbar region 2017 Postlaminectomy syndrome, melecio mbar region L3-L5 posterior decompression 01/10/2018 DDD (degenerative disc disease), lumbar 01/11/20 Acquired trigger finger 11/05/2017 Arthritis 12/26/2016 Seizure disorder 12/26/2016 DVT (deep venous thrombosis) Immunizations Immunization Administration Dates Next Due Influenza, Quadrivalent, Hig h Dose, Preservative Free, Intrr 07/13/2020 Influenza, Quadrivalent, Split, Intramuscular Influenza, Quadrivalent, Spl it, Preservative Free, Intramuscular 09/20/2016 Influenza, Trivalent, Adjuvanted, Intramuscular 07/30/2019 Influenza, Trivalent, IM (MDV) 07/20/2014 Influenza, Trivalent, Preservative Free, Intramu scular 08/06/2017,07/18/2015 Influenza, Unspecified 09/17/2013 ZOSTER Recombinant 03/02/2019,11/07/2018 Social History Tobacco Use Types Packs/Day Years Used Date Smoking Tobacco: Never Smokeless Tobacco: Never Tobacco Cessation:Counseling Given: Not Answered Alcohol Use Standard Drinks/Week Comments No 0 (1 standard drink = 0.6 oz pur e alcohol) Social Connection and Isolat ion Panel [NHANES] Answer Date Recorded In a typical week, how many times do you talk on the phone with family, friends, or neighbors? More than three times a week 01/24/2023 How often do you get togethe r with friends or relatives? More than three times a week 01/24/2023 How often do you attend chur ch or oriental orthodox services? Patient declined 01/24/2023 Do you belong to any clubs o r organizations such as moravian groups, unions, fraternal or athletic groups, or school groups? Patient declined 01/24/2023 How often do you attend meet ings of the clubs or organizations you belong to? Patient declined 01/24/2023 Are you , , di vorced, , never , or living with a partner? 01/24/2023 AUDIT-C Answer Date Recorded Q1: How often do you have a drink containing alc ohol? Never 07/12/2022 Average Number of Drinks Not on file 022 Q3: How often do you have si x or more drinks on one occasion? Never 07/12/2022 Overall Financial Resource Strain (CARDIA) Answe r Date Recorded How hard is it for you to pa y for the very basics like food, housing, medical care, and heating? Somewhat hard 01/24/2023 PHQ-2 Answer Date Recorded PHQ-2 Total Score 0 06/20/2022 Hunger Vital Sign Answer Date Recorded Within the past 12 months, y ou worried that your food would run out before you got the money to buy more. Never true 06/29/20 22 Within the past 12 months, t he food you bought just didn't last and you didn't have money to get more. Never true 06/29/2022 PRAPARE - Transportation Answer Date Re corded In the past 12 months, has l ack of transportation kept you from medical appointments or from getting medications? No 06/14 In the past 12 months, has l ack of transportation kept you from meetings, work, or from getting things needed for daily living? No 06/29/2022 Housing Stability Vital Sign Answer John e Recorded In the last 12 months, was t here a time when you were not able to pay the mortgage or rent on time? No 06/29/2022 In the last 12 months, how many places have you lived? 1 06/29/2022 In the last 12 months, was t here a time when you did not have a steady place to sleep or slept in a fdc (including now)? No 06/29/2022 Personal Safety Answer Date Recorded Have you ever been in or are you currently in a harmful physical or emotional relationship or is someone making you feel afraid or unsafe? Denies 01/23/2023 Sex and Gender Information Value Date Recorded Sex Assigned at Not on file Legal Sex Male 2:24 AM PLATE KEEPER Gender Identity Not on file Sexual Orientation Not on file Last Filed Vital Signs Vital Sign Reading Time Taken Comments Blood Pressure 134/80 08/20/2024 10:40 AM PLATE KEEPER Pulse 66 08/20/2024 10:40 AM PLATE KEEPER Temperature 36.3 C (97.3 F) 02/04/2023 8:24 AM CDT Respiratory Rate 20 02/04/2023 8:24 AM CDT Oxygen Saturation 100% 08/20/2024 10: 40 AM PLATE KEEPER Inhaled Oxygen Concentration - - Weight 91.2 kg (201 lb) 08/20/2024 10:4 0 AM PLATE KEEPER WEIGHT GIVEN BY THE PT Height 160 cm (5' 3 ) 08/20/2024 10:40 AM PLATE KEEPER Body Mass Index 35.61 08/20/2024 10:40 AM PLATE KEEPER Plan of Treatment Not on file Insurance T MEDICARE Advance Directives For more information, please contact: [phone] Documents on File Type Date Recorded Patient Bagging Salvager Expl anation ADVANCE DIRECTIVE 08/15/2022 12:34 PM Maranda ng Will * Full Code (Latest Code Status on File) Date Activated Date Inactivated Comments 01/23/2023 5:59 PM 02/04/2023 8:18 PM * Full Code Date Activated Date Inactivated Comments 07/12/2022 1:22 AM 07/13/2022 12:42 AM * Full Code Date Activated Date Inactivated Comments 06/29/2022 2:59 AM 07/05/2022 9:33 PM * Full Code Date Activated Date Inactivated Comments 06/28/2022 10:57 PM 06/29/2022 2:59 AM * Full Code Date Activated Date Inactivated Comments 06/18/2022 4:33 PM 06/22/2022 4:08 PM Care Teams Wardsperson Relationship Specialty Start Date End Date Jeremias Chapa MD [address] [place] [address] PCP - General Family Medicine 09/13/23 Noel Castaneda MD PhD [address] [place] [address] Referring Physician Neurology 02/04/23
--- OUTSIDE RECORDS SUMMARY | 2024-12-30 10:46 | XMS_ITS | Encounter Summary ---
Author Organization [facility] Address [address] [facility] [place] [address] Care Team Providers Care Taker Off Hemp Fiber Name Role Phone Chloe Perez MD Primary Care Provider [phone] Jeremias Chapa MD Primary Care Provider [phone] Reason for Visit * Reason Onset Date Comments Imaging 04/30/2024 MRI Encounter Details Date Type Department Care Team (Late st Contact Info) Description 04/30/2024 Telephone [facility] - Neurology [address] [place] [address], [place] [address] Janae He MD [address] [place] [address] [place] [address] Imaging (MRI) Social History Tobacco Use Types Packs/Day Years Used Date Smoking Tobacco: Never Smokeless Tobacco: Never Alcohol Use Standard Drinks/Week Comments Never 0 (1 standard drink = 0.6 oz pur e alcohol) AUDIT-C Answer Date Recorded Q1: How often do you have a drink containing alcohol? Never 05/06/2023 Q2: How many drinks containi ng alcohol do you have on a typical day when you are drinking? Patient does not drink Q3: How often do you have si x or more drinks on one occasion? Never 05/06/2023 Overall Financial Resource Strain (CARDIA) Answe r Date Recorded How hard is it for you to pa y for the very basics like food, housing, medical care, and heating? Somewhat hard 05/06/2023 PHQ-2 Answer Date Recorded PHQ2 TOTAL SCORE 0 08/29/2022 [facility] - Occupational Stress Questionnaire Answer Date Recorded Do you feel stress - tense, restless, nervous, or anxious, or unable to sleep at night because your mind is troubled all the time - these days? To some extent 05/06/2023 Hunger Vital Sign Answer Date Recorded Within the past 12 months, y ou worried that your food would run out before you got the money to buy more. Sometimes true Within the past 12 months, t he food you bought just didn't last and you didn't have money to get more. Sometimes true PRAPARE - Transportation Answer Date Re corded In the past 12 months, has l ack of transportation kept you from medical appointments or from getting medications? Yes 04/14 In the past 12 months, has l ack of transportation kept you from meetings, work, or from getting things needed for daily living? Yes 05/06/2023 Housing Stability Vital Sign Answer John e Recorded In the last 12 months, was t here a time when you were not able to pay the mortgage or rent on time? No 05/06/2023 In the last 12 months, how many places have you lived? 2 05/06/2023 In the last 12 months, was t here a time when you did not have a steady place to sleep or slept in a fci (including now)? No 05/06/2023 Sex and Gender Information Value Date Recorded Sex Assigned at Male 07/14/2022 3:23 PM CDT Gender Identity Male 07/14/2022 3:23 PM CDT Sexual Orientation Straight 01/13/2024 12 :50 PM CDT documented as of this encounter Functional Status Functional Status Response Date of Assess ment Is person deaf or have serious hearing difficult y? Yes 05/06/2023 Is person blind or have serious difficulty seein g? No 05/06/2023 Does person have serious dif ficulty walking/climbing stairs? Yes 05/06/2023 Does person have difficulty dressing/bathing? Ye s 05/06/2023 Does person have difficulty doing errands alone? Yes 05/06/2023 Cognitive Status Response Date of Assessm ent Does person have difficulty concentrating/remembering/making decisions? Yes 05/06/2023 documented as of this encounter Miscellaneous Notes * Telephone Encounter - Geno You RN - 04/30/2024 11:54 AM CDT Returned call to Radni Clayton [phone] who is the nurse coordinator at [facility] in [facility] where pt resides Per Randi, pt was brought to [facility] today for scheduled MRI and pt isn't able to be left unattended and security wouldn't let the class b truck driver of van leave van to take pt to the MRI and Randi called the MRI department to explain and see if someone from the department could meet pt and class b truck driver and take pt to MRI while class b truck driver parked the van but per Randi they weren't able to do it so pt transporttook [place] back to [place] without having MRI done and Randi asking if MRI can be done at a facility closer to [place]. I let her know I'm sending a message to Josselin at [facility] to let her know to call Randi to assist with faxing order to a different facility and to make sure prior auth is obtained if needed. Randi v/u and aware [facility] will contact her to assist Fidelia You RN * Telephone Encounter - Lor Cisneros - 04/30/2024 11:19 AM CDT Current Provider: Dr He Reason for Call: Nurse called said that there was a big problem downstairs with security and they need a new order for him to get the MRI at different location please. (Onur) Can you fax it ([phone]) Patient Call Back Number: [phone] documented in this encounter Plan of Treatment Upcoming Encounters Date Type Department Care Team (Latest Contact Info) Description 01/05/2025 9:00 AM CDT Office Visit [facility] - Neurology [address] [place] [address] [place] [address] Janae He MD [address] [place] [address] [place] [phone] 01/08/2025 11:36 AM CDT Hospital Encounter [facility] [address] [place] [phone] Tahir Stevenson MD [address] [place] [address] Surgery General 01/08/2025 11:36 AM CDT Anesthesia Event [facility] [address] [place] [phone] Eva Terrell, SENIOR NET SOFTWARE DEVELOPER-STAGE MANAGER [address] [place] [address] 01/08/2025 11:36 AM CDT - 01/08/2025 1:21 PM CDT Surgery [facility] [address] [place] [phone] Tahir Stevenson MD [address] [place] [id number] Left carpal tunnel release 01/18/2025 2:15 PM CDT [facility] - Plastic Surgery [address] [place] [phone] Tahir Stevenson MD [address] [place] [id number] Scheduled Procedures Name Priority Associated Diagnoses Date/Ti me RELEASE CARPAL TUNNEL Numbness and tingling in left hand 01/08/2025 11:36 AM CDT TRANSPOSITION / RELEASE ULNAR NERVE (CUBITAL TUNNEL/ELBOW) Numbness and tingling in left hand 01/08/2025 11:36 AM CDT documented as of this encounter Visit Diagnoses Not on filedocumented in this encounter Care Teams Taker Off Hemp Fiber Relationship Specialty Start Date End Date Chloe Perez MD [address] [place] [address] PCP - General Family Medicine 11/28/22 07/06/24 Jeremias Chapa MD [address] [place] [address] PCP - General Family Medicine 07/07/24 documented as of this encounter
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
--- OUTSIDE RECORDS SUMMARY | 2024-12-30 10:46 | XMS_ITS | Encounter Summary ---
Author Organization [facility] Healthcare Address [address] [place] [address] Care Team Providers Care Car Manager Name Role Phone Chloe Perez MD Primary Care Provider [phone] Noel Castaneda MD PhD Unavailable [phone] Jeremias Chapa MD Primary Care Provider [phone] Reason for Visit * Reason Onset Date Comments Advice Only 01/21/2023 Encounter Details Date Type Department Care Team (Late st Contact Info) Description 01/21/2023 Documentation [facility] Case Management [address] [place] [address] Brittney Rouse MD [address] [place] [address] Advice Only Social History Tobacco Use Types Packs/Day Years Used Date Smoking Tobacco: Never Smokeless Tobacco: Never Alcohol Use Standard Drinks/Week Comments No 0 [...] week 01/24/2023 How often do you attend up health system or anabaptist services? Patient declined 01/24/2023 Do you belong to any clubs o r organizations such as oriental orthodox groups, unions, fraternal or athletic groups, or [...] place to sleep or slept in a alf (including now)? No 06/29/2022 Personal Safety Answer Date Recorded Have you ever been in or are you currently in a harmful physical or emotional relationship or is someone making you feel afraid or unsafe? 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
--- OUTSIDE RECORDS SUMMARY | 2024-12-30 10:46 | XMS_ITS | Encounter Summary ---
Author Organization [facility] Address [address] [facility] [place] [address] Care Team Providers Care Yard Clerk Name Role Phone Simon Ventura MD Primary Care Provider [phone] Chloe Perez MD Primary Care Provider [phone] Simon Ventura MD Primary Care Provider [phone] Chloe Perez MD Primary Care Provider [phone] Jeremias Chapa MD Primary Care Provider [phone] Encounter Details Date Type Department Care Team (Late st Contact Info) Description 11/20/2018 Lab Requisition [facility] [address] [place] [address] Eldon Rich MD [address] [place] [address] Social History Tobacco Use Types Packs/Day Years Used Date Smoking Tobacco: Never Assessed Sex and Gender Information Value Date Recorded Sex Assigned at Male 07/14/2022 3:23 PM CDT Gender Identity Male 07/14/2022 3:23 PM CDT Sexual Orientation Straight 01/13/2024 12 :50 PM CDT documented as of this encounter Plan of Treatment Upcoming Encounters Date Type Department Care Team (Latest Contact Info) Description 01/05/2025 9:00 AM CDT Office Visit [facility] - Neurology [address] [place] [address] Janae He MD [address] [place] [address] [address] [place] [address] 01/08/2025 11:36 AM CDT Hospital Encounter [facility] [address] [place] [address] Tahir Stevenson MD [address] [place] [address] Surgery General 01/08/2025 11:36 AM CDT Anesthesia Event [facility] [address] [place] [phone] Eva Terrell, CASHIER ASSOCIATE-SNUFF DRIER [address] [place] [address] 01/08/2025 11:36 AM CDT - 01/08/2025 1:21 PM CDT Surgery [facility] [address] [place] [address] Tahir Stevenson MD [address] [place] [address] Left carpal tunnel release 01/18/2025 2:15 PM CDT Office Visit [facility] - Plastic Surgery [address] [place] [address], [place] [phone] Tahir Stevenson MD [address] [place] [address] Scheduled Procedures Name Priority Associated Diagnoses Date/Ti me RELEASE CARPAL TUNNEL Numbness and tingling in left hand 01/08/2025 11:36 AM CDT TRANSPOSITION / RELEASE ULNAR NERVE (CUBITAL TUNNEL/ELBOW) Numbness and tingling in left hand 01/08/2025 11:36 AM CDT documented as of this encounter Procedures Procedure Name Priority Date/Time Associated Diagnosis Comments DERMATOPATHOLOGY Routine 11/19/2018 12:0 0 AM APPLICATION TESTER documented in this encounter Results * DERMATOPATHOLOGY (11/19/2018 12:00 AM APPLICATION TESTER) Case Report Dermatopathology Report Case: [id number] Authorizing Provider: Eldon Rich MD Collected: 11/19/2018 12:00 AM Pathologist: Yolette Khan MD Received: 11/20/2018 11:49 AM Specimens: A) - Skin, post neck B) - Skin, right FA near elbow 2:33 PM APPLICATION TESTER DERMATOPATHOLOGY LABORATORY Final Diagnosis Specimen A. SKIN, post neck: INTRADERMAL MELANOCYTIC NEVUS (D22.4) Specimen B. SKIN, right FA near elbow: SOLAR LENTIGO (L81.4) 2:33 PM [facility] Clinical History A-B: R/O dys nevus. 2:33 PM [facility]MATOP[facility]Y [facility]OR[facility] Gross Description Specimen A: Received is one formalin filled container labeled with the patient's name and designated post neck. The specimen consists of a shave biopsy measuring [id number]. Jar 0. Specimen B: Received is one formalin filled container labeled with the patient's name and designated right FA near elbow. The specimen consists of a shave biopsy measuring [id number]. Jar 0. 2:33 PM APPLICATION TESTER DERMATOPATHOLOGY LABORATORY Microscopic Description Specimen A. SKIN, post neck: There are nests of cytologically bland melanocytes within the dermis that mature with depth. Specimen B. SKIN, right FA near elbow: There is orthokeratosis. There is a slight increase in epidermal thickness with lentiginous buds of hyperpigmented keratinocytes. The number of melanocytes is only mildly increased. In the dermis, there is basophilic degeneration of elastic fibers. 2:33 PM [facility]ERMATOPATH[facility]Y [facility]ORAT[facility] Disclaimer An external and internal positive and negative controls are appropriate for the histochemical, immunohistochemical and immunofluorescence stain(s) in this case (if any), except where stated explicitly. The performance characteristics of the stain(s) cited in this report were developed and its performance characteristic determined by the D[facility]at[facility] at [facility], directed by Dr. Fidelia [place]. These tests need not be, and therefore are not, approved by the [place] Food and Drug Administration. The tests are used for clinical purposes. Billing Codes Specimen Charges Stain Charges 48912 20140 1 1 9 2:33 PM APPLICATION TESTER DERMATOPATHOLOGY LABORATORY Embedded Images 9 2:33 PM APPLICATION TESTER DERMATOPATHOLOGY LABORATORY Pathology/Cytology TISSUE SPECIMEN FROM SKIN / Unknown 11/19/2018 11/20/2018 11:49 AM APPLICATION TESTER Miscellaneous samples (specimen) TISSUE SPECIMEN FROM SKIN / Unknown 11/19/2018 11/20/2018 11:49 AM APPLICATION TESTER Eldon Rich MD LAB - PATHOLOGY/CYTO LOGY ORDERABLES DERMATOPATHOLOGY LABORATORY [facility] - Department of Dermatology [address] [place] [address] 5th Floor Lab [address] [phone] documented in this encounter Visit Diagnoses Not on filedocumented in this encounter Care Teams Yard Clerk Relationship Specialty Start Date End Date Simon Ventura MD [address] [place] [address] PCP - General 11/20/18 07/12/22 Chloe Perez MD [address] [place] [address] PCP - General Family Medicine 07/13/22 07/13/22 Simon Ventura MD [address] [place] [address] PCP - General 07/14/22 11/27/22 Chloe Perez MD [address] [place] [address] PCP - General Family Medicine 11/28/22 07/06/24 Jeremias Chapa MD [address] [place] [address] PCP - General Family Medicine 07/07/24 documented as of this encounter
--- OUTSIDE RECORDS SUMMARY | 2024-12-30 10:46 | XMS_ITS | Patient Health Record ---
Author Organization [facility] Address [address] [place] [address] Care Team Providers Care Concrete Block Plant Supervisor Name Role Phone Sammi BLANCA, Jeremias Primary Care Provider Unavaila Joanne Hodges Unavailable [phone] Migration, Provider Unavailable Unavailable Allergies Allergen (clinical drug ingredient) Drug/Non Drug Allergy documented on EMR Reaction Allergy Type Onset Date Status Substance with sulfonamide structure and antibacterial mechanism of action (substance) SULFA (SULFONAMIDE ANTIBIOTICS) (uncoded) Unknown Allergy 10/16/2023 Active Reason For Referral No Information Medications Medication SIG (Take, Route, Frequency, Duration) Notes Start Date End Date Status Topiramate 100 MG Oral 10/16/2023 U nknown Meloxicam 7.5 MG Oral 10/16/2023 Un known Dicyclomine HCl 20 MG Oral 10/16/2023 Unknown Furosemide 20 MG Oral 10/16/2023 Un known Nitrofurantoin Monohyd Macro 100 MG Oral 10/16/2023 Unknown Fluticasone Propionate Diskus 50 MCG/ACT Inhalation *Reorder from [facility] for eRx and Interaction Alerts* 10/16/2023 Unknown Baclofen 10 MG Oral 10/16/2023 Unkn own Loperamide HCl 2 MG Oral 10/16/2023 Unknown tiZANidine HCl 2 MG Oral 10/16/2023 Unknown Enoxaparin Sodium 80 mg/0.8 mL Subcutaneous 10/16/2023 Unknown Relistor 12 mg/0.6 mL Subcutaneous 10/16/2023 Unknown Famotidine 40 MG Oral 10/16/2023 Un known Abilify 5 MG Oral 10/16/2023 Unknow n DULoxetine HCl 60 MG 1 cap Oral Once a day for 90 days Active DULoxetine HCl 30 MG 1 capsule Oral Once a day for 90 days Active ARIPiprazole 10 MG 1 tablet Oral Once a day for 90 days Active Baclofen 5 mg ORAL 10/16/2023 Unkno wn Gabapentin 400 MG Oral 10/16/2023 U nknown Prolia 60 MG/ML Subcutaneous *Pick strength-form from [employer] for eRX* 10/16/2023 Unknown Eliquis 5 MG Oral 10/16/2023 Unknow n Famotidine 20 MG Oral 10/16/2023 Un known Social History Tobacco Use: Social History Observation Description Date Details (start date - stop date) Never Smoker NA - NA Sex Assigned At : Social History Observation Description Sex Assigned At Male Household Question Answer Notes Marital status: Tobacco Control (Standard) Question Answer Notes Tobacco use: Nonsmoker Problems Problem Type SNOMED Code ICD Code Onset Dates Problem Status W/U Status Risk Notes Problem Iron deficiency anemia (03390558) Iron deficiency anemia, unspecified (D50.9) Active confirmed Problem Severe recurrent major depression without psychotic features (60154089) Major depressive disorder, recurrent severe without psychotic features (F33.2) Active confirmed Problem Generalized anxiety disorder (67679489) Generalized anxiety disorder (F41.1) Active confirmed Problem Mild neurocognitive disorder (294713582) Mild neurocognitive disorder (G31.84) Active confirmed Encounters Encounter Location Date Provider Diagnosis [facility] [address] [facility] [address] [place] [address] 04/06/2024 Joanne Luna Major depressive disorder, recurrent severe without psychotic features F33.2 ; Generalized anxiety disorder F41.1 and Iron deficiency anemia, unspecified D50.9 [facility] [address] [facility] [address] [place] [address] 05/11/2024 Joanne Cheryl Major depressive disorder, recurrent severe without psychotic features F33.2 ; Generalized anxiety disorder F41.1 and Mild neurocognitive disorder G31.84 [facility] [address] [facility] [address] [place] [address] 10/23/2024 Joanne Cheryl [facility] [address] [place] [address] 11/04/2024 Joanne Cheryl Major depressive disorder, recurrent severe without psychotic features F33.2 ; Generalized anxiety disorder F41.1 and Mild neurocognitive disorder G31.[address] [address] 01/11/2024 Provider Migration [address] [address] 02/29/2024 Provider Migration [address] [address] 03/01/2024 Provider Migration [address] [address] 04/22/2024 Joanne Luna Major depressive disorder, recurrent severe without psychotic features F33.[address] [address] 05/07/2024 Joanne Luna [address] [address] 06/08/2024 Joanne Luna [address] [address] 12/04/2024 Joanne Luna Assessments Encounter Date Diagnosis (ICD Code) Assessment Notes Treatment Notes Treatment Clinical Notes Section Notes 04/06/2024 Major depressive disorder, recurrent severe without psychotic features (ICD-10 - F33.2) 04/06/2024 Generalized anxiety disorder (ICD-10 - F41.1) 04/22/2024 Major depressive disorder, recurrent severe without psychotic features (ICD-10 - F33.2) 05/11/2024 Major depressive disorder, recurrent severe without psychotic features (ICD-10 - F33.2) 05/11/2024 Generalized anxiety disorder (ICD-10 - F41.1) 11/04/2024 Major depressive disorder, recurrent severe without psychotic features (ICD-10 - F33.2) 11/04/2024 Generalized anxiety disorder (ICD-10 - F41.1) 04/06/2024 Iron deficiency anemia, unspecified (ICD-10 - D50.9) 05/11/2024 Mild neurocognitive disorder (ICD-10 - G31.84) SLUMS= 24 today 11/04/2024 Mild neurocognitive disorder (ICD-10 - G31.84) 04/06/2024 Other Stable, continue current medications. Refills sent today. Daughters currently have guardianship over Aly, which is due for upcoming yearly review. Discussed with Aly this apt, he is understanding of the meaning and implications of guardianship and agreeable that it is in his best interest for his daughters to continue to reside as his guardian. He has a history of poor insight and judgement in the context of his major depressive disorder, history of being diagnosed with narcissistic personality disorder per Dr Claudio Hameed on 01/23/2023 (notes reviewed). He has a history of suicidal gestures, violence toward others, impulsive behaviors. Recommend daughters continuing guardianship of Aly at this time. 05/11/2024 Other Abilify increased 7/10 to 10mg, continue increase and monitor ongoing response. Continue duloxetine 30mg qam, 60mg qpm. SLUMS completed today, score 24. Suggestive of mild neurocognitive disorder. Continue current treatment plan with ongoing SLUMS re-evaluation q6 months. Spoke with daughter Adrienne, recommended continuing gaurdianship, as patient appears to have diminished insight and judgement for his best interest and safety. 11/04/2024 Other Stable, cont current medications. Refills [...] effects of psychotropic medications. -Crisis prevention hotline 630. Plan Of Treatment Next Appt Details Provider Name:Joanne Ashley Luna, 05/03/2025 10:15:00 AM, [address] [facility] [address] [facility] [address], [place], [address], Insurance Providers Payer Name Payer Address Payer Phone Subscriber Number Group Number Insured Name Patient Relationship to Insured Coverage Start Date Coverage End Date [employer] Medicare Replacemen t/Advantag e - Ppo [address] [place] [address] [id number] ALY ZHOU Self - patient is the insured Medical (General) History Surgical History Surgery Date(Month/Year) Tonsilectomy/adenoids 10/14/1974 Appendectomy (65388) 10/14/1999 Heart surgery 10/14/2007
--- OUTSIDE RECORDS SUMMARY | 2024-12-30 10:46 | XMS_ITS | Clinical Summary ---
Author Organization [facility] Address [address] [place] [address] Care Team Providers Care College Associate Name Role Phone Noel Castaneda MD PhD Unavailable [phone] Jeremias Chapa MD Primary Care Provider [phone] Allergies Active Allergy Reactions Criticality Noted Date [...] 08/06/2017,07/18/2015 Influenza, Unspecified 09/17/2013 ZOSTER Recombinant 03/02/2019,11/07/2018 Surgical History Surgery Date Site/Laterality Comments IN CHOLECYSTECTOMY Cholecystectomy - (Added by TW Conv) IN UNLISTED PROCEDURE ABDOME N PERITONEUM & OMENTUM Hernia Repair - (Added by TW Conv) IN ARTHRP ACETBLR/PROX FEM PROSTC AGRFT/ALGRFT Total Hip Replacement - (Added by TW Conv) KNEE SURGERY Knee Surgery - (Added by TW Conv) HEART SURGERY Heart Surgery - (Added by TW Conv) IN TONSILLECTOMY PRIMARY/SECONDARY <AGE 12 Tonsillectomy - (Added by TW Conv) BACK SURGERY Back Surgery - (Added by TW Conv) FOOT SURGERY Foot Surgery - (Added by TW Conv) HAND SURGERY Hand Surgery - (Added by TW Conv) IN CRANIOTOMY SELECTIVE AMYGDALOHIPPOCAMPECTOMY Craniotomy For Amygdalohippocampectomy - (Added by TW Conv) APPENDECTOMY BACK SURGERY JOINT REPLACEMENT CHOLECYSTECTOMY HERNIA REPAIR Medical History Medical History Date Comments Convulsions (HCC) Convulsive dis order - (Added by TW Conv) Personal history of other me ntal and behavioral disorders History of depression - (Add ed by TW Conv) Personal history of transien t ischemic attack (TIA), and cerebral infarction without residual deficits History of transient cerebra l ischemia - (Added by TW Conv) Low back pain Spinal 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 Patient declined 01/24/2023 Do you belong to any clubs o r organizations such as episcopal groups, unions, fraternal or athletic groups, or [...] on file Legal Sex Male 2:24 AM FIELD COUNSEL Gender Identity Not on file Sexual Orientation Not on file Obstetrics History Last Filed Vital Signs Vital Sign Reading Time Taken Comments Blood Pressure 134/80 08/20/2024 10:40 AM FIELD COUNSEL Pulse 66 08/20/2024 10:40 AM FIELD COUNSEL Temperature 36.3 C (97.3 F) 02/04/2023 8:24 AM CDT Respiratory Rate 20 02/04/2023 8:24 AM CDT Oxygen Saturation 100% 08/20/2024 10: 40 AM FIELD COUNSEL Inhaled Oxygen Concentration - - Weight 91.2 kg (201 lb) 08/20/2024 10:4 0 AM FIELD COUNSEL WEIGHT GIVEN BY THE PT Height 160 cm (5' 3 ) 08/20/2024 10:40 AM FIELD COUNSEL Body Mass Index 35.61 08/20/2024 10:40 AM FIELD COUNSEL Plan of Treatment Health Maintenance Due Date Last Done Comments Colon Cancer Screening-Colonoscopy 1950 Hepatitis C Screening 1950 DTaP/Tdap/Td Vaccine (1 - Tdap) 1963 Hepatitis B Screening 1970 Well Visit 65+ 2017 Pneumococcal vaccine 65+ (2 of 2 - PCV) 07/25/2022 07/25/2021 Depression Screening 06/18/2023 06/18/2022 Fall Risk Assessment 02/05/2024 02/04/2023 Covid-19 Vaccine (5 - 2023-2 5 season) 2024 04/17/2022, 08/21/2021, 11/25/2020, Additional history exists Influenza Vaccine (#1) 2024 2, 07/25/2021, 07/13/2020, Additional history exists Zoster Vaccine Completed 03/02/2019, 11/07/[address] [place] [address] MEDICARE T MEDICARE Advance Directives For more information, please contact: [phone] Documents on File Type Date Recorded Patient Education Coordinator Expl anation ADVANCE DIRECTIVE 08/15/2022 12:34 PM Maranda Will * Full Code (Latest Code Status [...] 4:33 PM 06/22/2022 4:08 PM Care Teams College Associate Relationship Specialty Start Date End Date Jeremias Chapa MD [address] [place] [address] PCP - General Family Medicine 09/13/23 Noel Castaneda MD PhD [address] [place] [address] Referring Physician Neurology 02/04/23
--- OUTSIDE RECORDS SUMMARY | 2024-12-30 10:46 | XMS_ITS | Clinical Summary ---
Author Organization [facility] Address [address] [place] [address] Care Team Providers Care Equipment Associate Name Role Phone Chloe Perez Primary Care Provider [phone] Allergies Active Allergy Reactions Criticality Noted Date Comments Sulfa Antibiotics Rash,Hives,Other (Se e Comments),Itching High 02/06/2019 Reaction: Hives, Medications denosumab (XGEVA) 120 MG/1.7ML injection Inject under the skin once. Active acetaminophen (TYLENOL) 325 MG tablet Take 2 tablets (650 mg total) by mouth in the morning and 2 tablets (650 mg total) at noon and 2 tablets (650 mg total) in the evening and 2 tablets (650 mg total) before bedtime. 0 3 Active apixaban (Eliquis) 5 MG tabletIndication s:Deep Vein Thrombosis Take 1 tablet (5 mg total) by mouth in the morning and 1 tablet (5 mg total) before bedtime. Indications: Blood Clot in a Deep Vein. 0 3 Active ARIPiprazole (ABILIFY) 5 MG tabletIndication s:Mood disorder Take 1 tablet (5 mg total) by mouth in the morning. Indications: Mood disorder. 0 3 Active baclofen (LIORESAL) 10 MG tablet Take 1 tablet (10 mg total) by mouth in the morning and 1 tablet (10 mg total) before bedtime. 0 3 Active baclofen (LIORESAL) 5 MG tablet tablet Take 1 tablet (5 mg total) by mouth Daily, after lunch. 0 3 Active calcium-vitamin D (OYSCO 500 + D) 500-200 MG-UNIT per tablet Take 1 tablet by mouth daily with breakfast. 0 3 Active docusate sodium (ENEMEEZ) 283 MG enema Insert 1 enema (283 mg total) into the rectum after dinner. 0 3 Active DULoxetine (CYMBALTA) 60 MG capsule Take 1 capsule (60 mg total) by mouth nightly. 0 3 Active famotidine (PEPCID) 20 MG tablet Take 1 tablet (20 mg total) by mouth in the morning and 1 tablet (20 mg total) before bedtime. 0 3 Active ferrous sulfate 325 (65 FE) MG tablet Take 1 tablet by mouth daily with breakfast. 0 3 Active fluticasone (FLONASE) 50 MCG/ACT nasal solution Administer 1 spray (50 mcg total) into each nostril in the morning and 1 spray (50 mcg total) before bedtime. 9.9 mL 3 Active gabapentin (NEURONTIN) 400 MG capsule Take 1 capsule (400 mg total) by mouth 3 (three) times a day. 0 3 Active melatonin tablet Take 2 tablets (6 mg total) by mouth nightly as needed for sleep. 0 3 Active multivitamin w/ minerals (THERA M PLUS) tablet tablet Take 1 tablet by mouth in the morning. 0 3 Active polyethylene glycol (MIRALAX) 17 g packet Take 17 g by mouth daily as needed (constipation). 10 each 3 Active senna (SENOKOT) 8.6 MG tablet Take 1 tablet (8.6 mg total) by mouth in the morning. 0 3 Active tiZANidine (ZANAFLEX) 2 MG tablet Take 1 tablet (2 mg total) by mouth 2 (two) times a day as needed for muscle spasms. 0 3 Active vitamin B-12 (CYANOCOBALAMIN) 1000 MCG tablet Take 1 tablet (1,000 mcg total) by mouth in the morning. 0 3 Active topiramate (TOPAMAX) 100 MG tablet Take 1 tablet (100 mg total) by mouth in the morning and 1 tablet (100 mg total) before bedtime. 0 3 Active bisacodyl (DULCOLAX) 10 MG suppository Insert 1 suppository (10 mg total) into the rectum daily as needed for constipation. 0 3 Active Active Problems Problem Noted Date Diagnosed Date Constipation due to neurogenic bowel 05/30/2023 Spasm 05/24/2023 History of craniotomy 05/24/2023 Urinary incontinence 05/24/2023 Obstructive sleep apnea syndrome 05/24/2023 Spastic tetraplegia 05/22/2023 Central cord syndrome 05/22/2023 Overview (01/17/2024): January SNOMED Diagnostic import Mood disorder 05/22/2023 Deep venous thrombosis 08/29/2022 Seizure disorder 12/26/2016 Immunizations Immunization Administration Dates Next Due Pfizer SARS-CoV-2 Vaccination 05/27/2023(Deferre d: Not available) Social History Tobacco Use Types Packs/Day Years Used Date Smoking Tobacco: Never Passive Smoke Exposure: Never Smokeless Tobacco: Never Tobacco Cessation:Counseling Given: No Sex and Gender Information Value Date Recorded Sex Assigned at Not on file Legal Sex Male 1:03 PM EDT Gender Identity Not on file Sexual Orientation Not on file Last Filed Vital Signs Vital Sign Reading Time Taken Comments Blood Pressure 135/82 06/04/2023 8:00 AM CDT Pulse 71 06/04/2023 8:00 AM CDT Temperature 36.2 C (97.2 F) 06/04/2023 8:00 AM CDT Respiratory Rate 16 06/04/2023 8:00 AM CDT Oxygen Saturation 99% 06/04/2023 8:00 AM CDT Inhaled Oxygen Concentration - - Weight 98 kg (216 lb) 05/22/2023 6:56 PM CDT Height 162.6 cm (5' 4 ) 05/22/2023 6:56 PM CDT Body Mass Index 37.08 05/22/2023 6:56 PM CDT Plan of Treatment Health Maintenance Due Date Last Done Comments CT Colonography 1950 Colonoscopy 1950 Colorectal Cancer Screening 1950 FIT-DNA (Cologuard) 1950 FIT 1950 FOBT 1950 Sigmoidoscopy 1950 Annual Visit Topic 1953 DTaP/Tdap/Td Vaccines (1 - Tdap) 1959 Hepatitis C Screening 1970 Pneumococcal Vaccine: 65+ Ye ars (1 of 4 - PCV) 2002 HIB Vaccines Aged Out No longer eligi ble based on patient's age to complete this topic HPV Vaccines Aged Out No longer eligi ble based on patient's age to complete this topic Hepatitis A Vaccines Aged Out No long er eligible based on patient's age to complete this topic Hepatitis B Vaccines Aged Out No long er eligible based on patient's age to complete this topic IPV Vaccines Aged Out No longer eligi ble based on patient's age to complete this topic Meningococcal Vaccine Aged Out No hussein july eligible based on patient's age to complete this topic Advance Directives * Full Resuscitation (Latest Code Status on File) Date Activated Date Inactivated Comments 05/22/2023 9:19 PM 06/04/2023 5:18 PM Care Teams Equipment Associate Relationship Specialty Start Date End Date Chloe Perez [address] [place], [place] [id number] PCP - General 05/27/23
--- OUTSIDE RECORDS SUMMARY | 2024-12-30 10:46 | XMS_ITS | Clinical Summary ---
Author Organization [facility] Address [facility] [place] [address] Care Team Providers Care Hvac Sales Representative Name Role Phone Jeremias Chapa MD Primary Care Provider Encounters Date Type Department Care Team Description 12/18/2024 8:58 AM IMCU SPECIALIST - 12/18/2024 11:59 PM IMCU SPECIALIST Hospital Encounter [facility] [address] [place] [address] Jeremias Chapa MD Discharge Disposition: Home or Self Care (Routine Discharge) 12/18/2024 Orders Only [facility] [address] [place] [address] Jeremias Chapa MD 11/12/2024 Orders Only [facility] [address] [place] [address] Jeremias Chapa MD 11/11/2024 3:25 PM IMCU SPECIALIST - 11/11/2024 11:59 PM IMCU SPECIALIST Hospital Encounter [facility] [address] [place] [address] Jeremias Chapa MD Discharge Disposition: Home or Self Care (Routine Discharge) from Last 3 Months Social History Tobacco Use Types Packs/Day Years Used Date Smoking Tobacco: Never Assessed Sex and Gender Information Value Date Recorded Sex Assigned at Male 11/11/2024 11:19 PM IMCU SPECIALIST Legal Sex Male 3:00 PM CDT Gender Identity Not on file Sexual Orientation Not on file Plan of Treatment Health Maintenance Due Date Last Done Comments Colorectal Cancer Screening Colonoscopy (10 Years) 1952 Hepatitis C 1970 DTaP, Tdap and Td Vaccines ( 1 - Tdap) 1971 Zoster Vaccines (1 of 2) 2002 RSV Immunization or 60+ Years (1 - Risk 60-74 years 1-dose series) 2012 Annual Medicare Wellness Visit 2017 Pneumococcal Vaccine: 65+ Ye ars (1 of 1 - PCV) 2017 COVID-19 Vaccine (1 - 2023-2 5 season) 2024 Influenza Adult (#1) 2024 Meningococcal B Vaccine Aged Out No l onger eligible based on patient's age to complete this topic Meningococcal Vaccine Aged Out No hussein july eligible based on patient's age to complete this topic RSV Immunizations Under 20 Months Aged Out No longer eligible based on patient's age to complete this topic Procedures Procedure Name Priority Date/Time Associated Diagnosis Comments BASIC METABOLIC PANEL Routine 12/18/2024 7:00 AM IMCU SPECIALIST HTN (hypertension) CBC, AUTO, NO DIFF Routine 12/18/2024 7: 00 AM IMCU SPECIALIST HTN (hypertension) VITAMIN B-12 Routine 12/18/2024 7:00 AM IMCU SPECIALIST HTN (hypertension) BASIC METABOLIC PANEL Routine 11/11/2024 1:30 PM IMCU SPECIALIST Essential hypertension, malignant from Last 3 Months Results * (ABNORMAL) VITAMIN B-12 (12/18/2024 7:00 AM IMCU SPECIALIST) VITAMIN B12 S/P/B 992(H) 193 - 986 PG/ML 12/18/2024 10:58 AM IMCU SPECIALIST [facility] 12/18/2024 7:00 AM IMCU SPECIALIST us Jeremiasjayashree Chapa MD LABORATORY Final Result [facility] [address] [place] [address], [place] [phone] * (ABNORMAL) BASIC METABOLIC PANEL (12/18/2024 7:00 AM [facility]) Only the most recent of2 resultswithin the time period is included. [facility] Signature GLUCOSE 77 70 - 99 MG/DL 12/18/2024 9:57 AM [facility] BUN 15 7 - 18 MG/DL 12/18/2024 9:57 AM [facility] CREATININE S/P/B 1.04 0.7 - 1.3 MG/DL 12/18/2024 9:57 AM [facility] SODIUM S/P/B 141 136 - 145 MMOL/L 12/18/2024 9:57 AM [facility] POTASSIUM S/P/B 4.4 3.5 - 5.1 MMOL/L 12/18/2024 9:57 AM [facility] CHLORIDE S/P/B 108 100 - 108 MMOL/L 12/18/2024 9:57 AM [facility] CO2 19.6(L) 21 - 32 MMOL/L 12/18/2024 9:57 AM [facility] CALCIUM S/P/B 9.9 8.5 - 10.1 MG/DL 12/18/2024 9:57 AM [facility] ANION GAP 13.4 5 - 15 MMOL/L 12/18/2024 9:57 AM [facility] BUN CREATININE RATIO 14.4 6 - 26 12/18/2024 9:57 AM [facility] GFR ESTIMATE 76(L) >90 ML/MIN/1.7 3 M2 12/18/2024 9:57 AM [facility] Comment: NOTE: eGFR is not calculated for patients <18 years of age. This is an estimated GFR calculation using the new CKD EPI creatinine equation without race and so does not require a correction factor for race. This estimated GFR should not be used for calculating drug doses. 12/18/2024 7:00 AM IMCU SPECIALIST Jeremiasjayashree Chapa MD LABORATORY Final Result [facility] [address] [place] [address], [place] [phone] * (ABNORMAL) CBC, AUTO, NO DIFF (12/18/2024 7:00 AM IMCU SPECIALIST) WBC 6.94 4.4 - 11.0 x10'3/uL 12/18/2024 9:41 AM [facility] RBC 4.50 4.50 - 5.90 x10'6/uL 12/18/2024 9:41 AM [facility] HGB 14.0 14.0 - 17.5 G/DL 12/18/2024 9:41 AM [facility] HCT 43.0 41.5 - 50.4 % 12/18/2024 9:41 AM [facility] MCV 95.6 80.0 - 96.0 FL 12/18/2024 9:41 AM [facility] MCH 31.1 26.5 - 31.4 PG 12/18/2024 9:41 AM [facility] MCHC 32.6 31.9 - 34.8 G/DL 12/18/2024 9:41 AM [facility] RDW 13.4 12.3 - 14.3 % 12/18/2024 9:41 AM [facility] PLT 251 151 - 353 x10'3/uL 12/18/2024 9:41 AM [facility] MPV 9.3(L) 9.7 - 11.9 FL 12/18/2024 9:41 AM [facility] 12/18/2024 7:00 AM IMCU SPECIALIST us Jeremiasjayashree Chapa MD LABORATORY Final Result [facility] () [facility] [address] [place] [address], [place] [phone] from Last 3 Months Insurance [employer] Care Teams Hvac Sales Representative Relationship Specialty Start Date End Date Jeremias Chapa MD [address] [place] [id number] PCP - General FAMILY PRACTICE 05/14/23
--- OUTSIDE RECORDS SUMMARY | 2024-12-30 10:46 | XMS_ITS ---
Author Organization [facility] [employer] [facility] Address [address] [facility] [address] [place] [address] Care Team Providers Care Mobile Sales Expert Name Role Phone Sammi BLANCA, Jeremias Primary Care Provider Joanne Sotelo Unavailable [phone] Social History Sex Assigned At : Social History Observation Description Sex Assigned At Male Encounters Encounter Location Date Provider Diagnosis [facility] [employer] [place] [id number] [facility] [address] [place] [address] 10/23/2024 Joanne Luna Plan Of Treatment Next Appt Details Provider Name:Joanne Luna, 05/03/2025 10:15:00 AM, [address], [facility] [address], [place], [address], Progress Notes * NUZHAT ZHOUDOB:1950 (73 yo M)Acc No.[id number]:10/23/2024 Patient: NUZHAT SHEN Provider: RAINER JUSTICE :1950 A ge:73 Y S ex:Male Date:10/23/2024 Address:[address] [place], [place] [id number] Subjective: * Chief Complaints: * * Medical History: Objective: * Vitals: Assessment: Plan: * Treatment: * Procedure Codes: N S NO SHOW * Billing Information: * Visit Code: * Procedure Codes: NS NO SHOW. * UTER SALESPERSON RETAIL Sign off status: Completed true * Provider: KEVIN JUSTICEHNP Date: 0 10/23/2024 Generated for Haroon ruibe/Kayden/Sarbjit on: 0 12/30/2024 10:45 AM CDT
--- OUTSIDE RECORDS SUMMARY | 2024-12-30 10:46 | XMS_ITS ---
Author Organization [facility] [employer] [facility] Address [address] [facility] [address] [facility] [address] [place] [address] Care Team Providers Care Lime Kiln Tender Name Role Phone Sammi BLANCA, Jeremias Primary Care Provider Joanne Sotelo Unavailable [phone] REASON FOR VISIT Please see attached. Social History Sex Assigned At : Social History Observation Description Sex Assigned At Male Encounters Encounter Location Date Provider Diagnosis [facility] [employer] [facility] [address] [place] [address] 12/04/2024 Joanne Luna Plan Of Treatment Next Appt Details Provider Name:Joanne Luna, 05/03/2025 10:15:00 AM, [address], [facility] [address], [place], [address], Progress Notes * NUZHAT ZHOUDOB:1950 (74 yo M)Acc No.[id number]:12/04/2024 Patient: Elise NUZHAT ORANTES :1950 A ge:74 Y S ex:Male Address:[address] [place] [address], [address] * true * Date: Generated for Haroon uribe/Kayden/eTransmitting on: 0 12/30/2024 10:46 AM CDT
--- OUTSIDE RECORDS SUMMARY | 2024-12-30 10:47 | XMS_ITS ---
Author Organization [facility] Care Team Providers Care Painter Helper Spray Name Role Phone Anup Morrison Unavailable Luisa Abad Unavailable Unavailable Tavares Moreno Unavailable Allergies and adverse reactions Code CodeSystem Substance Reaction Severity StartDate Concern Status 166486304 SNOMED CT Sulfa Antibiotics Unknown 02/04/2023 active Care Team Name Role Address Phone Organization Dates Anup Morrisno PCP [address] [place], [address], [place]Office[place] : : [facility] 03/08/2023 - 05/06/2023 Luisa Scott Attending Physician [address] [place], [address], [place]Office[place] : [facility] 03/08/2023 - 05/06/2023 Tavares Moreno Attending Physician [address] [place] [address], [address], [place] (Office): [facility] 03/08/2023 - 05/06/2023 Goals Section Description Status Target Date Current level of care is leonides ropriate considering current physical/ social/ emotional status. Active 08/01/2023 If the resident's heart stop s, or if they stop breathing, CPR WILL be initiated in honor with their FULL code wishes. Active If the resident's heart stop s, or if they stop breathing, CPR WILL be initiated in honor with their FULL code wishes. Active Minimize the risk of residen t exposure to the novel Coronavirus (COVID-19). Active 08/01/2023 Prevent a serious fall related injury Active 08/01/2023 Resident risk for recurrence of urinary tract infection will be minimized through next review Active 08/01/2023 Resident will be free of com plications related to ADL deficit through next review date: Active 08/01/2023 Resident will be kept clean and comfortable through next review date. Active 08/01/2023 Resident will be kept clean, dry and comfortable daily through next review Active 08/01/2023 Resident will be maintained at their respiratory baseline with a patent airway and unlabored respirations through next review date. Active 08/01/2023 Resident will be safe and free from Injury Activ e 08/01/2023 Resident will have a regular bowel elimination pattern AEB soft/formed bowel movements at least once every three days through the next review: Active 08/01/2023 Resident will have adequate fluid volume balance AEB good skin turgor, pink & moist mucous membranes, and sufficient fluid intake through next review. Active 08/01/2023 Resident will have no compli cations related to oral health concerns Active 08/01/2023 Resident will maintain intac t skin or current condition of skin integrity through next review date. Active 08/01/2023 Resident will not attempt suicide Active 08/01/2023 Resident will not experience a decline in overall function related to pain through next review date. Active 08/01/2023 Resident will not experience an UNPLANNED WEIGHT LOSS of 5% or more in a month or a loss of 10% in 180 days. Active 08/01/20 23 Resident will receive the le ast dosage of the prescribed psychotropic drug(s) to ensure maximum functional ability both mentally and physically through next review date. Active 07/14 Resident will use hearing ai d to assist with communication thru the next review date: Active 08/01/2023 Resident's needs will be ant icipated and met by staff through next review date: Active 08/01/2023 Residents preferences will be honored as able Ac tive 08/01/2023 The resident will attend for mal GROUP activities of choice and frequency. Active 08/01/2023 The resident will be able to communicate needs daily through the review date. Active 08/01/2023 The resident will be free fr om s/sx of new complications of neurological disorder through review date. Active 08/01/2023 The resident will be kept cl tiffany and comfortable through next review date. Active 08/01/2023 The resident will be/remain free of psychotropic drug related complications, including abnormal movement disorder, discomfort, hypotension, gait disturbance, ADL decline or cognitive/behavioral impairment through review date. Active 08/01/2023 The resident will have all n eeded items and materials to fully engage in preferred self-directed INDEPENDENT activity pursuits. Active 08/01/2023 The resident will have impro malia mood state through the review date. Active 08/01/2023 The resident will have impro malia sleep pattern by reporting satisfaction with rest or fewer documented episodes of insomnia through the review date Active 08/01/2023 The resident will have no in dications of psychosocial well-being problem by/through review date. Active 08/01/2023 The resident will maintain c urrent level of ADL function through the review date. Active 08/01/2023 The resident will maintain l ab values within therapeutic range per MD through review date. Active 08/01/2023 The resident will maintain o ptimal status and quality of life within limitations imposed by neurological deficits through review date. Active 08/01/2023 Immunizations Immunization Status Vaccine Details Vaccine Code CodeSystem Date Notes TB 2 Step Mantoux Skin Test completed tuberculin skin test; unspecified formulation lotNumber: [id number] expiry: 03/06/2023 Mfg: [employer] Given 0.5 Left Forearm intradermally Step 1 of Multi-step with next step required 98 CVX created date: 02/07/2023 consent date: 02/07/2023 administere d date: 02/07/2023 Afluria (Influenza vaccine) Q2035 completed Influenza, split virus, quadrivalent, injectable, preservative free lotNumber: [id number] expiry: 03/06/2023 Mfg: 64 Pix[employer] Given 0.5 ml Left Forearm intradermally 150 CVX created date: 02/07/2023 consent date: 02/07/2023 administere d date: 02/07/2023 Afluria (Influenza vaccine) Q2035 completed Influenza, split virus, quadrivalent, injectable, preservative free 150 CVX created date: 02/04/2023 administere d date: 07/13/2020 SARS-COV-2 (COVID-19) completed SARS-COV-2 (COVID-19) vaccine, mRNA, spike protein, LNP, preservative free, 100 mcg/0.5mL dose or 50 mcg/0.25mL dose Step 1 of Multi-step with next step required 207 CVX created date: 02/04/2023 administere d date: 08/21/2021 SARS-COV-2 (COVID-19) completed SARS-COV-2 (COVID-19) vaccine, mRNA, spike protein, LNP, preservative free, 100 mcg/0.5mL dose or 50 mcg/0.25mL dose Step 2 of Multi-step with next step required 207 CVX created date: 02/04/2023 administere d date: 11/25/2020 SARS-COV-2 (COVID-19) completed SARS-COV-2 (COVID-19) vaccine, mRNA, spike protein, LNP, preservative free, 100 mcg/0.5mL dose or 50 mcg/0.25mL dose Step 1 of Multi-step with next step required 207 CVX created date: 02/04/2023 administere d date: 10/24/2020 SARS-COV-2 Bivalent Booster- Moderna completed SARS-COV-2 (COVID-19) vaccine, mRNA, spike protein, LNP, bivalent, preservative free, 50 mcg/0.5 mL or 25 mcg/0.25 mL dose 229 CVX created date: 02/04/2023 administere d date: 04/17/2022 Mental Status Section Date Assessment Total Score Description 05/06/2023 BIMS 15 cognitively int act CAM 0 No delirium ind icated PHQ-9 00 04/17/2023 BIMS 15 cognitively int act CAM 0 No delirium ind icated PHQ-9 00 Problems Problem # Description Date of onset Resolved Date Code CodeSystem Concern Status 1 FLUID OVERLOAD, UNSPECIFIED 02/23/20 23 04/30/[address] completed 2 LOCALIZED SWELLING, MASS AND LUMP, LOWER LIMB, BILATERAL 02/23/[address] active 3 CAUDA EQUINA SYNDROME 02/05/[address] active 4 CHRONIC PAIN SYNDROME 02/05/[address] active 5 DIARRHEA, UNSPECIFIED 02/05/20 23 04/30/[address] completed 6 GASTRO-ESOPHAGEAL REFLUX DISEASE WITHOUT ESOPHAGITIS 02/05/[address] active 7 MAJOR DEPRESSIVE DISORDER, RECURRENT SEVERE WITHOUT PSYCHOTIC FEATURES 02/05/[address] active 8 OBSTRUCTIVE SLEEP APNEA (ADULT) (PEDIATRIC) 02/05/[address] active 9 OTHER INTERVERTEBRAL DISC DEGENERATION, LUMBAR REGION 02/05/[address] active 10 OTHER LOW BACK PAIN 02/05/20 23 02/04/[address] completed 11 OTHER SEIZURES 02/05/[address] active 12 OTHER SPECIFIED POSTPROCEDURAL STATES 02/05/20 23 04/30/[address] completed 13 PRIMARY GENERALIZED (OSTEO)ARTHRITIS 02/05/[address] active 14 SPINAL STENOSIS, THORACIC REGION 02/05/[address] active 15 UNSTEADINESS ON FEET 02/05/[address] active 16 WEAKNESS 02/05/20 23 04/30/[address] completed Reason for Referral No Reasons for Referral Entered Social History Social History Observation Description Start Date End Date Code Code System Current Smoking Status Tobacco smoking consumption unknown 382866125 SNOMED CT Sex Assigned At Male 1950 42747-2 [facility] Vital Signs Code Code System Vitals Name Values and Units Timing Information 03548-4 [facility] Pain Level Value=0.0 05/06/2023 97975-5 [facility] Weight Wcdot=092.8 Units=Lbs 9279-1 [facility] Respiratory Rate Value=20.0 Units=/m in 03/10/2023 8462-4 [facility] Blood Pressure-Diastolic Value=71 Un its=mmHg 03/10/2023 8480-6 [facility] Blood Pressure-Systolic Uhuij=580 Un its=mmHg 03/10/2023 8310-5 [facility] Body Temperature Value=96.7 Units= F 03/10/2023 8867-4 [facility] Heart rate Value=83.0 Units=/min 31564-9 [facility] O2 % BldC Oximetry Value=96.0 Units= % 03/10/2023 8302-2 [facility] Height Value=63.0 Units=Inches 03/08/2023
--- OUTSIDE RECORDS SUMMARY | 2024-12-30 10:47 | XMS_ITS | Encounter Summary ---
Author Organization [facility] Address [address] [place] [address] Care Team Providers Care Marriage Therapist Name Role Phone Jeremias Chapa MD Primary Care Provider [phone] Reason for Visit * Reason Onset Date Comments Care Management Follow-up 10/12/2024 Encounter Details Date Type Department Care Team (Late st Contact Info) Description 10/12/2024 Telephone [facility] - Centralized Scheduling [address] [place] [address] Tahir Stevenson MD [address] [place], [place] [id number] Care Management Follow-up Social History Tobacco Use Types Packs/Day Years Used Date Smoking Tobacco: Never Smokeless Tobacco: Never Alcohol Use Standard Drinks/Week Comments Never 0 (1 standard drink = 0.6 oz pur e alcohol) AUDIT-C Answer Date Recorded Q1: How often do you have a drink containing alcohol? Never 09/25/2024 Q2: How many drinks containi ng alcohol do you have on a typical day when you are drinking? Patient does not drink Q3: How often do you have si x or more drinks on one occasion? Never 09/25/2024 Overall Financial Resource Strain (CARDIA) Answe r Date Recorded How hard is it for you to pa y for the very basics like food, housing, medical care, and heating? Somewhat hard 05/06/2023 PHQ-2 Answer Date Recorded PHQ2 TOTAL SCORE 0 08/29/2022 [facility] - Occupational Stress [...] place to sleep or slept in a custodial (including now)? No 05/06/2023 Sex and Gender [...] encounter Miscellaneous Notes * Telephone Encounter - Kenna Kendrick - 10/12/2024 12:46 PM CST Leonela Clayton, the patient's nurse from [facility], has called several times and left voice messages for Jennifer to see if the patient could have his sutures removed from his wrist at their facility. Please gice Leonela a call back as soon as possible for confirmation at: [phone]. SFER MAN documented in this encounter Plan of Treatment Upcoming Encounters Date Type Department Care Team (Latest Contact Info) Description 01/05/2025 9:00 AM CDT Office Visit [facility] - Neurology [address] [place] [address], [place] [phone] Janae He MD [address] [place] [address] [place] [phone] 01/08/2025 11:36 AM CDT Hospital Encounter [facility] [address] [place] [phone] Tahir Stevenson MD [address] [place] [address] Surgery General 01/08/2025 11:36 AM CDT Anesthesia Event [facility] [address] [place] [phone] Eva Terrell, FREIGHT BREAKER-PRIMER CHARGER [address] [place] [address] 01/08/2025 11:36 AM CDT - 01/08/2025 1:21 PM CDT Surgery [facility] [address] [place] [phone] Tahir Stevenson MD [address] [place] [address] Left carpal tunnel release 01/18/2025 2:15 PM CDT Office Visit [facility] - Plastic Surgery [address] [facility], [place] [address] Tahir Stevenson MD [facility] [place] [address] Scheduled Procedures Name Priority Associated Diagnoses Date/Ti me RELEASE CARPAL TUNNEL Numbness and tingling in left hand 01/08/2025 11:36 AM CDT TRANSPOSITION / RELEASE ULNAR NERVE (CUBITAL TUNNEL/ELBOW) Numbness and tingling in left hand 01/08/2025 11:36 AM CDT documented as of this encounter Visit Diagnoses Not on filedocumented in this encounter Care Teams Marriage Therapist Relationship Specialty Start Date End Date Jeremias Chapa MD [address] [place] [address] PCP - General Family Medicine 07/07/24 documented as of this encounter
--- OUTSIDE RECORDS SUMMARY | 2024-12-30 10:47 | XMS_ITS | Clinical Summary ---
Author Organization [facility] Address [address] [place] [address] Care Team Providers Care Carbon Paper Coating Supervisor Name Role Phone Jeremias Chapa MD Primary Care Provider [phone] Source Comments [facility],non-owned Affiliates and Associated Physician Practices is amultiple site organization consisting of ambulatory clinics and hospital sitesin [place], [place], [place] and [place]. This disclosure is being madepursuant to the Care Everywhere program and may not contain all information available regarding this patient. Last updated 18.[facility] Allergies Active Allergy Reactions Criticality Noted Date Comments Sulfa Drugs Urticaria Medium 02/06/2019 Medications * Be aware that medications may not be up to date on this document. Alwaysverify current medications with the patient. Medication Sig Dispensed Refills Start Date End Date Status topiramate (TOPAMAX) 100 MG tablet Take 1 (one) tablet by mouth 2 times daily Active acetaminophen (Tylenol) 325 MG tablet Take 2 (two) tablets by mouth every 6 hours as needed for Pain Active ARIPiprazole (Abilify) 5 MG tablet Take 2 (two) tablets by mouth once daily Active DULoxetine (Cymbalta) 60 MG capsule Take 1 (one) capsule by mouth at bedtime Active apixaban (Eliquis) 5 MG tablet Take 1 (one) tablet by mouth 2 times daily Active famotidine (Pepcid) 20 MG tablet Take 1 (one) tablet by mouth 2 times daily Active furosemide (Lasix) 20 MG tablet Take 1 (one) tablet by mouth as needed Active DENOSUMAB SC Inject subcutaneously Every 180 days Active polyethylene glycol 3350 (MiraLax) 17 g packet Take 17 (seventeen) g by mouth once daily 05/10/2023 Active ferrous sulfate 325 (65 FE) MG tablet Take 1 (one) tablet by mouth daily with breakfast 05/23/2023 Active Calcium Carb-Cholecalcif magaly (OYSCO 500 + D) 500-5 MG-MCG TABS Take 1 tablet by mouth once daily 06/04/2023 Active gabapentin (Neurontin) 400 MG capsule Take 1 (one) capsule by mouth 3 times daily 06/04/2023 Active fluticasone propionate (Flonase) 50 MCG/ACT nasal spray [place] 1 (one) spray into each nostril 2 times daily as needed 06/04/2023 Active Cyanocobalamin 1000 MCG Take 1 tablet by mouth once daily Active DULoxetine (Cymbalta) 30 MG capsule Take 1 (one) capsule by mouth once daily Active senna (Senokot) 8.6 MG tablet Take by mouth once daily Active multivitamin daily tablet Take 1 (one) tablet by mouth daily with food Active amoxicillin (Amoxil) 500 MG capsuleIndicatio ns:prior to dental procedure Take 1 (one) capsule by mouth as needed Reasons: prior to dental procedure 08/10/2024 Active mirabegron ER 24hr (Myrbetriq) 25 MG tablet Take 1 (one) tablet by mouth once daily 08/05/2024 Active oxyCODONE, immediate release, (Roxicodone) 5 MG tabletIndication s:Carpal tunnel syndrome of right wrist Take 1 (one) tablet by mouth every 6 hours as needed for Pain 12 tablet 09/25/2024 Active calcium carbonate-vitami n D 600-5 MG-MCG tablet Take 1 (one) tablet by mouth once daily 5 Discontinue d(List Clean-Up) bisacodyl (Dulcolax) 10 MG suppository Insert 1 (one) suppository into the rectum once daily as needed for Constipation 5 Discontinue d(List Clean-Up) loperamide (Imodium) 2 MG capsule Take 1 (one) capsule by mouth as needed for Diarrhea 05/10/2023 5 Discontinue d(List Clean-Up) magnesium citrate solution 05/10/2023 5 Discontinue d(List Clean-Up) sodium phosphate rectal (Fleet) 7-19 GM/118ML enema Insert 133 mL into the rectum once daily as needed 05/10/2023 5 Discontinue d(List Clean-Up) baclofen (Lioresal) 5 MG TABS Take 1 (one) tablet by mouth every 8 hours as needed 06/04/2023 5 Discontinue d(List Clean-Up) melatonin 3 MG tablet Take 2 (two) tablets by mouth nightly as needed 06/04/2023 5 Discontinue d(List Clean-Up) docusate sodium (Docusate Mini) 283 MG enema Insert 1 (one) enema into the rectum once daily 5 Discontinue d(List Clean-Up) tiZANidine (Zanaflex) 2 MG tablet Take 1 (one) tablet by mouth every 8 hours as needed for Muscle Spasms 5 Discontinue d(List Clean-Up) Active Problems Problem Noted Date Diagnosed Date Overactive bladder 07/12/2024 Chronic kidney disease, unspecified 03/31/2024 Iron deficiency anemia, unspecified 03/31/2024 Other ill-defined heart diseases 03/31/2024 Constipation due to neurogenic bowel 05/30/2023 06/11/2023 History of craniotomy 05/24/2023 06/11/2023 Spasm 05/24/2023 06/11/2023 Obstructive sleep apnea syndrome 05/24/2023 06/11/2023 Urinary incontinence 05/24/2023 06/11/2023 Hypoalbuminemia 05/22/2023 Central cord syndrome of cervical spinal cord 06/11/2023 Episodic mood disorder 05/22/2023 3 Spastic tetraplegia 05/22/2023 06/11/2023 Obesity, Class II, BMI 35-39.9 05/21/2023 Cervical myelopathy 05/06/2023 Reactive depression (situational) 01/23/2023 06/11/2023 Impaired mobility and ADLs 01/18/2023 Spinal stenosis of thoracolumbar region 01/19/20 23 Urinary incontinence, unspecified type 3 DVT (deep venous thrombosis) 08/29/2022 Deep venous thrombosis 08/29/2022 Cauda equina compression 07/13/2022 Neural foraminal stenosis of lumbar spine 2021 Bilateral low back pain 07/13/2022 DVT, lower extremity, proximal, acute, left 06/15 Left leg swelling 07/12/2022 Obstructive sleep apnea jose luis rodney with continuous positive airway pressure (CPAP) 07/12/2022 Aftercare following joint replacement surgery Carpal tunnel syndrome 05/17/2022 Enthesopathy of hip region 05/17/2022 Hematoma 05/17/2022 Lesion of ulnar nerve 05/17/2022 Osteoarthritis of shoulder region 05/17/2022 Pain in limb 05/17/2022 Osteoarthritis of both shoulders 05/09/2022 Pain of left hip joint 04/13/2022 Trochanteric bursitis of left hip 03/02/2022 Pain of both shoulder joints 02/07/2022 Arthralgia of right knee 12/13/2021 Osteoarthrosis 11/07/2021 06/11/2023 Age-related osteoporosis wit hout current pathological fracture 02/15/2021 Temporal lobe epilepsy 02/20/2019 Lumbar discitis 01/06/2019 Other idiopathic scoliosis, lumbar region 2017 Postlaminectomy syndrome, lumbar region 01/11/20 18 Acquired trigger finger 11/05/2017 Epileptic seizure 12/26/2016 Seizure disorder 12/26/2016 06/11/2023 Encounters Date Type Department Care Team Description 12/18/2024 2:00 PM CAN CAPPER - 12/18/2024 11:59 PM CAN CAPPER Hospital Encounter [facility]EMG [address] [place] [address] Kika Wallace, Janae English MD Discharge Disposition: Home or Self Care 12/18/2024 Travel 12/07/2024 2:30 PM CAN CAPPER Office Visit [facility] - Plastic Surgery [address] [facility], [place] [address] Tahir Stevenson MD Tingling of left upper extremity (Primary Dx) 12/07/2024 Travel 10/30/2024 11:56 AM CAN CAPPER - 10/30/2024 11:59 PM CAN CAPPER Hospital Encounter [facility] DI[facility]NOSTIC [facility] OP [address] [place] [address] Kika Wallace PA-C Discharge Disposition: Home or Self Care 10/30/2024 11:00 AM CAN CAPPER Office Visit [facility] - Plastic Surgery [address] [facility], [place] [address] Kika Wallace PA-C Numbness and tingling in left hand (Primary Dx); Bilateral hand pain; Bilateral carpal tunnel syndrome 10/30/2024 Travel 10/12/2024 Telephone [facility] - Centralized Scheduling [address] [place] [address] Tahir Stevenson MD Care Management Follow-up 10/05/2024 Telephone [facility] - Centralized Scheduling [address] [place] [address] Tahir Stevenson MD Reschedule Appointment (10/05-Left message to reschedule Mailleigha's 11/02 apt-reschedule to next available. MyChart note entered.-DLM-MS/-Left message-3rd attempt-mailed reschedule llydkd-Czdjhkzfh-OV M-MS) from Last 3 Months Immunizations Name Administration Dates Next Due FLU VACCINE TRI IIV3 SPLIT IM (FLUVIRIN) 014 INFLUENZA VACCINE 08/17/2022,09/17/2013 INFLUENZA VACCINE, ADJUVANTE D, QUADR. (FLUAD QUADRIVALENT; 65Y+) (AIIV4) 08/17/2022 INFLUENZA VACCINE, ADJUVANTE D, TRIV. (FLUAD TRIVALENT; 65Y+) (AIIV3) 07/30/2019 INFLUENZA VACCINE, HIGH-DOSE , QUADR. (FLUZONE HIGH-DOSE QUADRIVALENT; 65Y+), 0.7 ML (HD-IIV4) 07/25/2021,07/13/2020 INFLUENZA VACCINE, QUADR. (A FLURIA, FLUZONE QUADRIVALENT; 6MO+) (IIV4) 07/18/2018 INFLUENZA VACCINE, QUADR. (F LUZONE; FLULAVAL; FLUARIX; AFLURIA QUADRIVALENT; 6MO+), 0.5 ML (IIV4) 09/20/2016 INFLUENZA VACCINE, TRIV. (FL UZONE; FLULAVAL; FLUARIX; AFLURIA TRIVALENT; 6MO+), 0.5 ML (IIV3) 08/06/2017,07/18/2015 MODERNA SARS-COV-2 COVID-19 VACCINE 0.25ML 04/17 PNEUMOCOCCAL PPV VACCINE 07/25/2021 Zoster Hzv Vacc Recombinant Inj Im 03/02/2019, Social History Tobacco Use Types Packs/Day Years Used Date Smoking Tobacco: Never Smokeless Tobacco: Never Tobacco Cessation:Counseling Given: Not Answered Alcohol Use Standard Drinks/Week Comments Never 0 [...] Date Recorded PHQ2 TOTAL SCORE 0 08/29/2022 [facility] - Occupational Stress [...] slept in a fdc (including now)? No 05/06/2023 Sex and Gender Information Value Date Recorded Sex Assigned at Male 07/14/2022 3:23 PM CDT Gender Identity Male 07/14/2022 3:23 PM CDT Sexual Orientation Straight 01/13/2024 12 :50 PM CDT Last Filed Vital Signs Vital Sign Reading Time Taken Comments Blood Pressure 136/96 12/07/2024 3:21 PM CAN CAPPER Pulse 87 12/07/2024 3:21 PM CAN CAPPER Temperature 36.4 C (97.6 F) 12/07/2024 3:21 PM CAN CAPPER Respiratory Rate 22 09/25/2024 2:45 PM CAN CAPPER Oxygen Saturation 99% 12/07/2024 3:21 PM CAN CAPPER Inhaled Oxygen Concentration 21% 05/14/2023 3 :40 AM CDT Weight 98.4 kg (217 lb) 12/21/2024 3:03 PM CDT Height 160 cm (5' 3 ) 12/21/2024 3:03 PM CDT Body Mass Index 38.44 12/21/2024 3:03 PM CDT Plan of Treatment Upcoming Encounters Date Type Department Care Team (Latest Contact Info) Description 01/05/2025 9:00 AM CDT Office Visit [facility] - Neurology [address] [place] [address], [place] [address] Janae He MD [address] [place] [address] [place] [address] 01/08/2025 11:36 AM CDT Hospital Encounter [facility] [address] [place] [address] Tahir Stevenson MD [address] [place] [address] Surgery General 01/08/2025 11:36 AM CDT Anesthesia Event [facility] [address] [place] [phone] Eva Terrell, IMMIGRATION ATTORNEY-CORPORATE DRIVER [address] [place] [address] 01/08/2025 11:36 AM CDT - 01/08/2025 1:21 PM CDT Surgery [facility] [address] [place] [phone] Tahir Stevenson MD [address] [place] [address] Left carpal tunnel release 01/18/2025 2:15 PM CDT Office Visit [facility] - Plastic Surgery [address] [place] [address], [place] [address] Tahir Stevenson MD [address] [place] [address] Scheduled Procedures Name Priority Associated Diagnoses Date/Ti me RELEASE CARPAL TUNNEL Numbness and tingling in left hand 01/08/2025 11:36 AM CDT TRANSPOSITION / RELEASE ULNAR NERVE (CUBITAL TUNNEL/ELBOW) Numbness and tingling in left hand 01/08/2025 11:36 AM CDT Health Maintenance Due Date Last Done Comments COLOGUARD (AGES 45-75) - COLON CA SCREENING 1952 COLON MONITORING 1952 COLONOSCOPY - COLON CA SCREENING 1952 CT COLONOGRAPHY - COLON CA SCREENING 1952 Colorectal Cancer Screening 1952 FIT - COLON CA SCREENING 1952 FLEX SIG - COLON CA SCREENING 1952 HEPATITIS C SCREENING 11/19/1970 DTAP/TDAP/TD VACCINES (1 - Tdap) 1971 Respiratory Syncytial Virus (RSV) Vaccine Pt: or over 60 yrs (1 - Risk 60-74 years 1-dose series) 2012 PNEUMOCOCCAL VACCINE 50+ (2 of 2 - PCV) 07/25/2022 07/25/2021 COVID-19 VACCINE ( season) 2024 09/13/2022, 04/17/2022, 08/21/2021, Additional history exists INFLUENZA VACCINE (#1) 2024 2, 08/17/2022, 07/25/2021, Additional history exists DEPRESSION SCREENING 10/14/2024 08/29/2022 MEDICARE AWV CALENDAR YEAR 2024 SCREENING FOR DIABETES 06/03/2026 , 05/30/2023, 05/27/2023, Additional history exists LIPID TESTING 06/12/2027 06/12/2022 ZOSTER VACCINE Completed 03/02/2019, 11/07/2018 BONE DENSITY TESTING Completed 09/11/2022, 02/15/2021, 05/05/2020, Additional history exists HEPATITIS B VACCINE Aged Out No longe r eligible based on patient's age to complete this topic HIB VACCINE Aged Out No longer eligi ble based on patient's age to complete this topic HPV VACCINE Aged Out No longer eligi ble based on patient's age to complete this topic MENINGOCOCCAL (Group B) VACCINE SHARED DECISION-MAKING Aged Out No longer eligible based on patient's age to complete this topic MENINGOCOCCAL GROUPS A/C/Y/W VACCINE Aged Out No longer eligible based on patient's age to complete this topic Medical Devices Implanted Type Area Pantograph Machine Set Up Operator Device Identifier Shelf Expiration Date Model / Serial / Lot Parminder Bone Void 10cc 20cc Ca Slf Stimulan Implanted:Qty: 1 on 05/06/2023 by Odin Davidson MD at [facility] N/A: Spine Cervical Biocompstes 10/13/2025 620-010 / / [id number] Description:mixed with 1gm v ancomycin Chilo Spnl 240mm 3.5mm [address] Implanted:Qty: 2 on 05/06/2023 by Odin Davidson MD at [facility] N/A: Spine Cervical [employer] [id number] / / Graft Bone Kore Fbr Luke Bone Fbr Algrf - [id number] Implanted:Qty: 1 on 05/06/2023 by Odin Davidson MD at [facility] N/A: Spine Cervical Musculoskeletal Transplant Foundati 02/01/2025 [id number] / [id number] / Graft Bone Kore Fbr Luke Bone Fbr Algrf - [id number] Implanted:Qty: 1 on 05/06/2023 by Odin Davidson MD at [facility] N/A: Spine Cervical Musculoskeletal Transplant Foundati 02/01/2025 [id number] / [id number] / Corelink 4.5x24mm Poly Screw Implanted:Qty: 4 on 05/06/2023 by Odin Davidson MD at [facility] N/A: Spine Cervical [employer] [id number] / / Core Link 4.5x26mm Poly Screw Implanted:Qty: 4 on 05/06/2023 by Odin Davidson MD at [facility] N/A: Spine Cervical [employer] [id number] / / Screw Set Spnl 3500 Ser Implanted:Qty: 18 on 05/06/2023 by Odin Davidson MD at [facility] N/A: Spine Cervical [employer] [id number] / / Core Link 3.5x18mm Medial/Lateral Screw Implanted:Qty: 6 on 05/06/2023 by Odin Davidson MD at [facility] N/A: Spine Cervical [employer] [id number] / / Core Link 3.5x20mm Medial/Lateral Screws Implanted:Qty: 3 on 05/06/2023 by Odin Davidson MD at [facility] N/A: Spine Cervical [employer] [id number] / / Core Link 3.5x24mm Medial/Lateral Screw Implanted:Qty: 1 on 05/06/2023 by Odin Davidson MD at [facility] N/A: Spine Cervical [employer] [id number] / / Procedures Procedure Name Priority Date/Time Associated Diagnosis Comments XR HAND LEFT 3VW OR MORE Routine 10/30/2024 12:04 PM CAN CAPPER Bilateral hand pain Bilateral carpal tunnel syndrome Numbness and tingling in left hand BASIC METABOLIC PANEL (CALCIUM TOTAL) Routine 06/03/2023 5:00 AM CDT from Last 3 Months or Most Recently Relevant to Health Maintenance Results * XR Hand Left 3Vw or More (10/30/2024 12:04 PM CAN CAPPER) Anatomical Region Laterality Modality Wrist / Hand Digital Radiogra phy 10/30/2024 12:0 1 PM CAN CAPPER Impressions 10/30/2024 12:03 PM CAN CAPPER IMPRESSION: Arthritis and postsurgical changes. > Interpreting Provider: Tavares Cain MD on 10/30/2024 12:03 PM Narrative 10/30/2024 12:03 PM CAN CAPPER PROCEDURE: XR HAND LEFT 3VW OR MORE DATE/TIME OF EXAM: 10/30/2024 11:57 AM CLINICAL INFORMATION: None relevant/not provided if blank. Indication: M79.641: Bilateral hand pain M79.642: Bilateral hand pain G56.03: Bilateral carpal tunnel syndrome R20.0: Numbness and tingling in left hand R20.2: Numbness and tingling in left hand Additional History: COMPARISON: 08/24/2024. FINDINGS: Again demonstrated is arthrodesis of the second metacarpophalangeal joint with a plate and screws. The hardware is intact. There is bony fusion of the joint. There is a small metallic foreign body in the third digit at the level of the middle phalanx, unchanged. There is moderate arthritis at the first and third metacarpophalangeal and first carpometacarpal joints and mild involvement of several other joints. There is periarticular calcification at the third metacarpophalangeal joint. No acute fracture or dislocation is seen. Alignment of the wrist would be better evaluated with wrist radiographs, but positive ulnar variance is suggested. Procedure Note Tavares Cain MD - 10/30/2024 PROCEDURE: XR HAND LEFT 3VW OR MORE DATE/TIME OF EXAM: 10/30/2024 11:57 AM CLINICAL INFORMATION: None relevant/not provided if blank. Indication: M79.641: Bilateral hand pain M79.642: Bilateral hand pain G56.03: Bilateral carpal tunnel syndrome R20.0: Numbness and tingling in left hand R20.2: Numbness and tingling in left hand Additional History: COMPARISON: 08/24/2024. FINDINGS: Again demonstrated is arthrodesis of the second metacarpophalangealjoint with a plate and screws. The hardware is intact. There is bony fusion of the joint. There is a small metallic foreign body in the third digit atthe level of the middle phalanx, unchanged. There is moderate arthritis atthe first and third metacarpophalangeal and first carpometacarpal joints and mild involvement of several other joints. There is periarticular calcification at the third metacarpophalangeal joint. No acute fractureor dislocation is seen. Alignment of the wrist would be better evaluatedwith wrist radiographs, but positive ulnar variance is suggested. IMPRESSION: Arthritis and postsurgical changes. > Interpreting Provider: Tavares Cain MD on 10/30/2024 12:03 PM Kika Wallace PA-C DIAGNOSTIC IMAGING O RDERABLES * (ABNORMAL) BASIC METABOLIC PANEL (CALCIUM TOTAL) (06/03/2023 5:00 AM CDT) Glucose 82 70 - 105 mg/dL 06/03/2023 7:43 AM CDT [facility] Sodium 138 136 - 145 mmol/L 06/03/2023 7:43 AM CDT [facility] Potassium 4.1 3.5 - 5.1 mmol/L 06/03/2023 7:43 AM CDT [facility] Chloride 113(H) 98 - 107 mmol/L 06/03/2023 7:43 AM CDT [facility] CO2 19(L) 22 - 29 mmol/L 06/03/2023 7:43 AM CDT [facility] Calcium 9.2 8.4 - 10.4 mg/dL 06/03/2023 7:43 AM CDT [facility] Anion Gap 6 6 - 16 mmol/L 06/03/2023 7:43 AM CDT [facility] BUN 18 7 - 26 mg/dL 06/03/2023 7:43 AM CDT [facility] Creatinine 0.71(L) 0.72 - 1.25 mg/dL 06/03/2023 7:43 AM CDT [facility] eGFR by CKD-EPI >90 >=90 mL/min/1.7 3 m2 06/03/2023 7:43 AM CDT [facility] Blood BLOOD SPECIMEN / Unknown 06/03/2023 5:00 AM CDT 06/03/2023 7:19 AM CDT Leanne Kiran MD LAB - CHEMISTRY [facility] [address] [place] [address] from Last 3 Months or Most Recently Relevant to Health Maintenance Advance Directives Documents on File Type Date Recorded Patient Improvement Intern Expl anation Adv Directive/Living Will/POA 05/06/2023 * Full Code (Latest Code Status on File) Date Activated Date Inactivated Comments 05/22/2023 7:47 PM 06/04/2023 3:11 PM * Full Code Date Activated Date Inactivated Comments 05/06/2023 1:18 PM 05/22/2023 5:28 PM * Full Code Date Activated Date Inactivated Comments 01/18/2023 11:57 PM 01/20/2023 4:14 PM * Full Code Date Activated Date Inactivated Comments 07/13/2022 9:15 AM 07/26/2022 5:34 PM * Full Code Date Activated Date Inactivated Comments 07/13/2022 9:15 AM 07/13/2022 9:15 AM Care Teams Carbon Paper Coating Supervisor Relationship Specialty Start Date End Date Jeremias Chapa MD [address] [place] [address] PCP - General Family Medicine 07/07/24
--- OUTSIDE RECORDS SUMMARY | 2024-12-30 10:47 | XMS_ITS | Data Portability ---
Author Organization [place] - [facility], Main Office Address [address] [place] [address] Care Team Providers Care Investment Advisor Name Role Phone DIONNE LOZADA Primary Care Provider DIONNE LOZADA Referring Provider Assessment Encounter Date Assessment Date Assessment LastModified by Organization Details LastModified Time 03/01/2023 03/01/2023 HPI: Patient returns. he is here for cortisone injections in both glenohumeral joints. Last shots were 3 months ago. Patient has severe glenohumeral joint osteoarthritis. Shots continue to give him some relief he wished to continue with these. Physical exam: 72-year-old male alert pleasant. He has a wheelchair. He had a severe cauda equina episode and is still trying to recover from that. He has no definite effusion either shoulder. He has significant crepitus with range of motion both shoulders. He has active elevation to 115 bilaterally. ChloraPrep was used on skin 20 mg Kenalog and 3 cc of 0.5% ropivacaine was injected into both glenohumeral joints. Impression: 72-year-old male with severe glenohumeral joint osteoarthritis. Wished to continue with injections every 3 months. I will see him back in 3 months. Not available 03/01/2023 15:02:53 07/03/2023 07/03/2023 HPI: Patient returns. He is here for cortisone injection into both of his glenohumeral joints. Last shots or in mid February of this year. Late February or early March he had C-spine fusion done in [place] through a posterior incision. Unfortunately has lost a lot of function of his upper extremities. He has edema in the hands and forearms at this point. He is in a rehab facility. They have been following up with the neurosurgeon in [place]. Physical exam: Patient has no definite effusion in either shoulder. He has crepitus with range of motion. Again he has no active elevation either shoulder passively to about 30 bilaterally. After ChloraPrep used on skin 20 mg Kenalog and 3 cc of 0.5% ropivacaine was injected into both glenohumeral joints. Impression: Patient has known severe glenohumeral joint osteoarthritis. Shots have always worked well for him. We will see him in 3 months. Not available 07/03/2023 16:05:38 10/02/2023 10/02/2023 HPI: Patient returns. he is here for cortisone injection into both glenohumeral joints. Last shots were 3 months ago. He does get good relief of the pain in his shoulders from the shots. He still has almost no function of either upper extremities due to C-spine fusion done about 6 months ago. I did ask him if he was specifically having pain in the shoulders and he said yes and stated that the injections to relieve the pain in his shoulders. Physical exam: 72-year-old male he is in a wheelchair. He has no active function of either upper extremity. There is no definite effusion in either shoulder. He has no redness or warmth to either shoulder. No tenderness about the shoulders. ChloraPrep used on skin 20 mg Kenalog and 3 cc of 0.5% ropivacaine was injected into both glenohumeral joints. Impression: Patient has moderately severe glenohumeral joint osteoarthritis in both shoulders. Shots does continue give him benefit of his pain. He asked whether not shots again help with the function his upper extremities and I discussed with him this is due to his C spine fusion surgery That was done. Shots are there to help with the pain in his shoulders and he is glad to have that. Hopefully over time he regain some function to his upper extremities and we discussed this briefly. He can take up to 2 years to see what kind of recovery he may get. I will see him in 3 months. Not available 10/02/2023 15:37:28 01/01/2024 01/01/2024 HPI: Patient returns. He is here for cortisone injections into both shoulders. Last shots were 3 months ago. He has severe glenohumeral joint osteoarthritis in both shoulders. Shots continue give him good benefit. Physical exam: 73-year-old male alert. He has in a wheelchair. He still has minimal use of both upper extremities from previous C-spine surgery. No definite effusions in either shoulders. No redness or warmth. After alcohol prep 20 mg Kenalog and 3 cc of 0.5% Marcaine was injected into both glenohumeral joints. Impression: 73-year-old male who has severe glenohumeral joint osteoarthritis. Shots continuing him some benefit. We will see him in 3 months. Not available 01/01/2024 16:35:05 Plan of Treatment Reminders Order Date Submit Date Provider Last Modified By Organization Details Last Modified Time Details Appointments None recorded. Lab None recorded. Referral None recorded. Procedures injection/a spiration joint/bursa (PROC) - in office procedure, administere d by provider 2023 024 [email or web address] In-Office Order, Internal Use Only DO Not Attach Compendium DO Not Attach Compendium, Do Not Delete/merge, [id number] 14:47:24 injection/a spiration joint/bursa (PROC) - in office procedure, administere d by provider 2022 023 [email or web address] In-Office Order, Internal Use Only DO Not Attach Compendium DO Not Attach Compendium, Do Not Delete/merge, [id number] 14:55:23 injection/a spiration joint/bursa (PROC) - in office procedure, administere d by provider 2022 023 [email or web address] In-Office Order, Internal Use Only DO Not Attach Compendium DO Not Attach Compendium, Do Not Delete/merge, [id number] 15:28:26 injection/a spiration joint/bursa (PROC) - in office procedure, administere d by provider 2022 023 In-Office Order, Internal Use Only DO Not Attach Compendium DO Not Attach Compendium, Do Not Delete/merge, [id number] 14:39:14 Surgeries None recorded. Imaging XR, shoulder, 2 or more view 2022 023 [email or web address] [facility] [place], [address], [place], [address], 3 15:48:03 Medication Orders Kenalog 10 mg/mL suspension for injection 2023 024 [facility], [address] [place], [address], 4 16:17:09 Marcaine (PF) 0.5 % (5 mg/mL) injection solution 2023 024 [facility], [address] [place], [address], 4 16:17:09 Kenalog 10 mg/mL suspension for injection 2022 023 [facility], [address] [place], [address], 3 15:32:25 ropivacaine (PF) 5 mg/mL (0.5 %) injection solution 2022 023 [facility], [address] [place], [address], 3 15:32:25 Kenalog 10 mg/mL suspension for injection 2022 023 [facility], [address] [place], [address], 3 16:11:19 ropivacaine (PF) 5 mg/mL (0.5 %) injection solution 2022 023 [facility], [address] [place], [address], 3 16:11:19 Kenalog 10 mg/mL suspension for injection 2022 023 [email or web address], [address] [place], [address], 3 14:39:42 ropivacaine (PF) 5 mg/mL (0.5 %) injection solution 2022 023 [email or web address], [address] [place], [address], 3 14:39:42 Patient TargetsNo targets recorded. Patient InstructionsNo instructions recorded. Reason for Referral None Reported. Results Created Date Observation Date Name Description Value Unit Range Abnormal Flag Note LastModifiedBy Organization Detail LastModifiedTime 10/02/20 23 XR, shoul johnny, 2 or more view No observ ation record ed. [facility] [address], [place], [address], 10/02/2023 15:34:19 Result Notes None recorded. Problems Name Problem SNOMED Code Status Onset Date Resolution Date Notes Provider Name and Address Organization Details Recorded Time Bilateral shoulder osteoarthr itis 7731523832787 08 Active 2021 Not Available [facility] 3 04:49:15 Bilateral shoulder joint pain 8899827984779 9104 Active 2021 Not Available [facility] 3 04:49:15 Localized, primary osteoarthr itis of the shoulder region 112475044 Active Not Available [facility] 3 04:49:15 Localized, secondary osteoarthr itis of the shoulder region 326282984 Active Not Available [facility] 3 04:49:15 Lumbar discitis 335522567 Active 2018 Not Available [facility] 3 04:49:16 Enthesopat hy of hip region 32489593 Active Not Available [facility] 3 04:49:16 Pain of left hip joint 9205530005080 00 Active 2021 Not Available [facility] 3 04:49:16 Trochanter ic bursitis of left hip 9747841868411 03 Active 2021 Not Available [facility] 3 04:49:16 Lesion of ulnar nerve 889119228 Active Not Available [facility] 3 04:49:16 Arthritis 4432315 Active 2016 Not Available [facility] 3 04:49:16 Hematoma 733445677 Active Not Available [facility] 3 04:49:16 Osteoarthr itis 399074673 Active 2021 Not Available [facility] 3 04:49:16 Pain of right knee joint 7624016071015 00 Active 2021 Not Available [facility] 3 04:49:16 Hip pain 84932831 Active Not Available [facility] 3 04:49:16 Carpal tunnel syndrome 97812876 Active Not Available [facility] 3 04:49:17 Degenerati ve joint disease of shoulder region 94178548 Active Not Available [facility] 3 04:49:17 Epilepsy 22187472 Active 2016 Not Available [facility] 3 04:49:17 Pain in limb 91808586 Active Not Available [facility] 3 04:49:17 Problem Notes None recorded. Procedures Surgical History Date Name Laterality Status Provider Name and Address Organization Details Recorded Time Gallbladder Surgery completed JEISON Armijo [place] [facility] 07/03/2023 15:25:04 Knee Surgery completed Alexa Su [facility] [place] [facility] 07/03/2023 15:25:15 Back completed Alexa Su Ko [place] [facility] 07/03/2023 15:25:26 procedure on neck completed Alexa Su Ko [place] [facility] 07/03/2023 15:25:34 Imaging Results Imaging Date Name Status LastModified by Organiz [facility] Details LastModified Time 10/02/2023 XR, shoulder, 2 or more view completed [facility] [place] [address], [place], [address], 10/02/2023 15:34:19 Procedure Notes None recorded. Medical Equipment None Reported. Allergies Allergen ID Allergen Name Allergen Category Reaction Reaction Severity Criticality Documentation Date Start Date Code Code System Note Provider Name and Address Organization Details Recorded Time 7231 Substance with sulfonami de structure and antibacte rial mechanism of action (substanc e) medicatio n Not available Not available Not available 12/12/2022 23337 8003 SNOMED Not Available [facility] 3 04:58:35 Medications Name Sig Start Date Stop Date Status Note LastModified by Organization Details LastModified Time cyclobenzap rine 10 mg tablet TAKE 1 TABLET BY MOUTH TWICE DAILY NEEDED 06/08 completed Not Available Not Available Not Available amoxicillin 500 mg capsule active Not Available Not Available Not Available furosemide 40 mg tablet 07/03 completed Not Available Not Available Not Available potassium chloride ER 10 mEq capsule,ext ended release active Not Available Not Available Not Available venlafaxine ER 75 mg capsule,ext ended release 24 hr 01/06 completed Not Available Not Available Not Available tizanidine 2 mg tablet active Not Available Not Available Not Available loperamide 2 mg capsule 07/03 completed Not Available Not Available Not Available tizanidine 4 mg tablet 07/03 completed Not Available Not Available Not Available famotidine 40 mg tablet 07/03 completed Not Available Not Available Not Available bupivacaine HCl 0.5 % (5 mg/mL) injection solution In office injection administe red by the provider 12/13 completed Not Available Not Available Not Available prednisone 20 mg tablet 01/06 completed Not Available Not Available Not Available gabapentin 400 mg capsule active Not Available Not Available Not Available metronidazo le 250 mg tablet 11/23 completed Not Available Not Available Not Available cyanocobala min (vit B-12) 1,000 mcg tablet Take by oral route. active Not Available Not Available No t Available potassium chloride ER 10 mEq tablet,exte nded release active Not Available Not Available Not Available metronidazo le 500 mg tablet 11/23 completed Not Available Not Available Not Available phenytoin sodium extended 100 mg capsule 01/06 completed Not Available Not Available Not Available ciprofloxac in 250 mg tablet 11/23 completed Not Available Not Available Not Available ciprofloxac in 500 mg tablet 11/23 completed Not Available Not Available Not Available tramadol 50 mg tablet 11/23 completed Not Available Not Available Not Available meloxicam 7.5 mg tablet 07/03 completed Not Available Not Available Not Available alprazolam 0.5 mg tablet active Not Available Not Available Not Available famotidine 20 mg tablet active Not Available Not Available Not Available Fosamax 70 mg tablet Take 1 tablet every week by oral route. 05/12 completed Not Available Not Available Not Available dicyclomine 20 mg tablet Take 1 tablet 4 times a day by oral route. active Not Available Not Available No t Available Kenalog 10 mg/mL suspension for injection in office 2023 active [facility]: 0003- [phone]- [phone] Not Available Not Available Not Available meclizine 25 mg tablet 01/06 completed Not Available Not Available Not Available baclofen 10 mg tablet active Not Available Not Available No t Available cephalexin 500 mg capsule 07/03 completed Not Available Not Available Not Available pantoprazol e 40 mg tablet,tenzin yed release 07/03 completed Not Available Not Available Not Available venlafaxine 37.5 mg tablet 01/06 completed Not Available Not Available Not Available oxycodone 5 mg capsule 07/03 completed Not Available Not Available Not Available gabapentin 300 mg capsule active Not Available Not Available Not Available omeprazole 20 mg capsule,del ayed release 01/06 completed Not Available Not Available Not Available oxcarbazepi ne 600 mg tablet 01/06 completed Not Available Not Available Not Available Tylenol 325 mg tablet Take 2 tablets every 6 hours by oral route. 2022 active Not Available Not Available Not Avai lable furosemide 20 mg tablet active Not Available Not Available Not Available lorazepam 1 mg tablet 01/06 completed Not Available Not Available Not Available methylpredn isolone 4 mg tablets in a dose pack Take the medrol dose pack PO as directed 01/10 completed Not Available Not Available Not Available colchicine 0.6 mg tablet 07/03 completed Not Available Not Available Not Available celecoxib 100 mg capsule 07/03 completed Not Available Not Available Not Available ondansetron 4 mg disintegrat ing tablet 11/23 completed Not Available Not Available Not Available topiramate 100 mg tablet active Not Available Not Available Not Available fluticasone propionate 50 mcg/actuati on nasal spray,suspe nsion active Not Available Not Available Not Available amoxicillin 875 mg-potassiu m clavulanate 125 mg tablet 2022 active Not Available Not Available Not Avai lable oxycodone 5 mg tablet 07/03 completed Not Available Not Available Not Available enoxaparin 80 mg/0.8 mL subcutaneou s syringe active Not Available Not Available No t Available aripiprazol e 5 mg tablet active Not Available Not Available Not Available Marcaine (PF) 0.5 % (5 mg/mL) injection solution in office 2023 active Not Available Not Available Not Avai lable Florastor 250 mg capsule Take by oral route. 07/03 completed Not Available Not Available Not Available nitrofurant oin monohydrate /macrocryst als 100 mg capsule active Not Available Not Available Not Available duloxetine 30 mg capsule,del ayed release active Not Available Not Available Not Available duloxetine 60 mg capsule,del ayed release active Not Available Not Available Not Available melatonin active Not Available Not Yareli ilable Not Available ferrous sulfate active Not Available Not Available Not Available bisacodyl active Not Available Not Yareli ilable Not Available gabapentin 300mg 02/03 completed Not Available Not Available Not Available GlycoLax active Not Available Not Avai lable Not Available alendronate -vitamin D3 2022 active Not Available Not Available Not Avai lable lidocaine (PF) 10 mg/mL (1 %) injection solution In office injection administe red by the provider 11/08 completed [facility]: [phone] Not Available Not Available Not Available lidocaine (PF) 5 mg/mL (0.5 %) injection solution In office injection administe red by the provider 06/08 completed Not Available Not Available Not Available oxycodone 10 mg tablet 07/03 completed Not Available Not Available Not Available venlafaxine ER 75 mg tablet,exte nded release 24 hr 07/29 completed Not Available Not Available Not Available Forteo 20 mcg/dose (600 mcg/2.4 mL) subcutaneou s pen injector 02/08 completed Not Available Not Available Not Available Vimpat 50 mg tablet 01/06 completed Not Available Not Available Not Available Xifaxan 550 mg tablet active Not Available Not Available No t Available Prolia 60 mg/mL subcutaneou s syringe active Not Available Not Available No t Available ropivacaine (PF) 5 mg/mL (0.5 %) injection solution in office 2022 active Not Available Not Available Not Avai lable Onfi 10 mg tablet 01/06 completed Not Available Not Available Not Available Relistor 12 mg/0.6 mL subcutaneou s syringe active Not Available Not Available No t Available Eliquis 5 mg tablet Take 1 tablet twice a day by oral route. active Not Available Not Available No t Available Procto-Med HC 2.5 % topical cream perineal applicator 05/24 completed Not Available Not Available Not Available Fluzone Quad (PF) 60 mcg(15 mcgx4)/0.5 mL intramuscul ar syringe 07/29 completed Not Available Not Available Not Available baclofen 5 mg tablet active Not Available Not Available No t Available Fluzone High-Dose Quad (PF) 240 mcg/0.7 mL IM syringe 02/08 completed Not Available Not Available Not Available Forteo 20 mcg/dose (620 mcg/2.48 mL) subcutaneou s pen injector 02/08 completed Not Available Not Available Not Available Vitals Date Recorded Body height Provider Name an d Address Organization Details Last Updated DateTime 2022 160.02 cm Not Available [facility] 04:43:03 Date Recorded Body height Provider Name an d Address Organization Details Last Updated DateTime 03/01/2023 160.02 cm JEISON Armijo [facility] [employer] [facility] 03/01/2023 14:37:35 Date Recorded Body height Provider Name an d Address Organization Details Last Updated DateTime 07/03/2023 160.02 cm JEISON Armijo [facility] 07/03/2023 15:15:30 Date Recorded Body height Provider Name an d Address Organization Details Last Updated DateTime 10/02/2023 160.02 cm JEISON Armijo [facility] 10/02/2023 14:53:10 Date Recorded Body height Provider Name an d Address Organization Details Last Updated DateTime 01/01/2024 160.02 cm JEISON Armijo [place] [facility] 01/01/2024 14:45:24 Social History Question Answer Notes LastModified by Organizat ion Details LastModified Time Tobacco Smoking Status Never Smoker Not Available [facility] 12/12/2022 04:07:33 What Is Your Level Of Alcohol Consumption? None [id number] Information not available 12/12/2022 What Was The Date Of Your Most Recent Tobacco Screening? 02/08/2021 [id number] Information not available 12/12/2022 Sex: Unknown Functional Status None recorded. Mental Status None recorded. Family History Relationship Description Onset Age of this Age Resolved Age Notes LastModified by Organization Details LastModified Time Father Heart disease Not available 2022 15:24:28 Father Family history of malignant neoplasm [email or web address] Not available 2022 15:24:39 Medical History Condition Response BLINDNESS N HEART VALVE DISORDERS N KIDNEY STONES N MRSA N CARPAL TUNNEL SYNDROME N ALLERGIES/HAYFEVER N INFECTIOUS DISEASE N LUNG DISEASE/DISORDER N HEART ARRHYTHMIA N INSOMNIA N HISTORY OF DRUG ABUSE N COPD N RADIATION / CHEMOTHERAPY N RHEUMATOID ARTHRITIS N HIGH CHOLESTEROL / HYPERLIPIDEMIA N BLOOD DISEASES N EDEMA N CHRONIC PAIN SYNDROME N CAROTID BLOCKAGE N SCHIZOPHRENIA N BOWEL PROBLEMS N DEPRESSION (INCLUDING POST ) N BACK / NECK PROBLEMS N HAVE YOU BEEN HOSPITALIZED OR SEEN IN [facility] IN THE PAST YEAR ? N STROKE/TIA N BURSITIS N ULCERS N BENIGN PROSTATIC HYPERPLASIA N HERNIATED DISC N DIALYSIS N OBESITY N GERD/NAUSEA N ANEURYSM N FIBROMYALGIA N OSTEOPOROSIS N URINARY/BLADDER/KIDNEY PROBLEMS N CORONARY ARTERY DISEASE (CAD) N ADDICTION CONCERNS N ARTHRITIS Y USE OF BLOOD THINNERS N NO SIGNIFICANT PAST MEDICAL HISTORY N PERIPHERAL NEUROPATHY N SKIN PROBLEMS N DIABETES, TYPE N EMPHYSEMA N HEARTBURN / REFLUX N MUSCLE,JOINT OR BONE PROBLEMS N DVT N STOMACH ULCERS N BLOOD CLOTS Y HEPATITIS / LIVER DISEASE N USE OF NSAIDS N CONCUSSION OR SPINAL TRAUMA N GOUT N SLEEP DISORDER N ALZHEIMER'S DISEASE N HERPES N HEADACHES/MIGRAINES N SEIZURES/EPILEPSY N VASCULAR DISEASE N Blood Disorder N DIZZINESS N HEAD TRAUMA OR INJURY N HEART DISEASE/HEART PROBLEMS N NEUROPATHY N AIDS/HIV N FRACTURES N MULTIPLE SCLEROSIS N HYPERTENSION N CARDIAC ARRHYTHMIA N CANCER: SPECIFY N TOURETTE'S N ANXIETY DISORDER N Metal allergy N BLOOD TRANSFUSION N ANESTHESIA COMPLICATIONS N ANEMIA/BLOOD DISORDER N ATRIAL FIBRILLATION N BIPOLAR DISORDER N BRONCHITIS N AUTOIMMUNE DISEASE N OSTEOARTHRITIS N TUBERCULOSIS N FOOT PROBLEM N Immunizations Vaccine Type Date Status Note Provider Nam e and Address Organization Details Recorded Time Influenza, split virus, quadrivalent, preservative 8 completed Not Available [facility] 12/12/2022 04:58:07 Past Encounters Encounter ID Performer Location Encounter Start Date Encounter Closed Date Diagnosis/Indication Diagnosis SNOMED-CT Code Diagnosis ICD10 Code Diagnosis Note [id number] [facility] [address] [place], [place] [address] 02/08/2021 00:00:00 02/08/2021 10:15:25 [id number] [facility] [place] [address] [place], [place] [address] 05/10/2021 00:00:00 05/10/2021 10:31:10 [id number] [facility] [address] [place] [address] 05/24/2021 00:00:00 05/26/2021 09:52:45 [id number] [facility] [address] [place], [place] [address] 06/28/2021 00:00:00 06/28/2021 10:03:41 [id number] [facility] [address] [place] [address] 07/14/2021 00:00:00 07/14/2021 09:54:12 [id number] [facility] [address] [place] [address] 08/09/2021 00:00:00 08/09/2021 09:52:00 [id number] [facility] [address] [place] [address] 11/08/2021 00:00:00 11/08/2021 09:55:53 [id number] [facility] [place] [address] [place] [address] 12/13/2021 00:00:00 12/13/2021 17:03:33 [id number] [facility] [place] [address] [place] [address] 01/10/2022 00:00:00 01/14/2022 15:48:28 [id number] [facility] [address] [place] [address] 02/07/2022 00:00:00 02/07/2022 10:49:49 [id number] [facility] [address] [place] [address] 02/07/2022 00:00:00 02/24/2022 18:07:31 [id number] [facility] [address] [place] [address] 03/02/2022 00:00:00 03/02/2022 14:30:45 [id number] [facility] [address] [place] [address] 04/13/2022 00:00:00 04/16/2022 12:10:03 [id number] [facility] [address] [place] [address] 05/09/2022 00:00:00 05/09/2022 09:46:53 [id number] [facility] [place] [address] [place] [address] 05/11/2022 00:00:00 05/11/2022 11:25:39 [id number] [facility] [place] [address] [place] [address] 06/08/2022 00:00:00 06/08/2022 12:39:30 [id number] [facility] [address] [place] [address] 08/08/2022 00:00:00 08/08/2022 10:55:31 [id number] [facility] [address] [place] [address] 2022 00:00:00 2022 12:52:04 [id number] ELE Woodward [facility] [address] [place] [address] 03/01/2023 14:35:42 03/01/2023 15:03:30 Bilateral shoulder osteoarthritis [id number] M19.307 [id number] ELE Woodward [facility] [address] [place] [address] 07/03/2023 15:02:52 07/03/2023 16:07:18 Bilateral shoulder osteoarthritis [id number] M19.300 [id number] ELE Woodward [facility] [address] [place] [address] 10/02/2023 14:49:06 10/02/2023 15:48:02 Osteoarthritis [id number] M19.953 [id number] ELE Woodward [facility] [address] [place] [address] 01/01/2024 14:37:33 01/01/2024 16:42:19 Bilateral shoulder osteoarthritis [id number] M19.012 Health Concerns Section Related Observation LastModified by Organization Detai ls LastModified Time None Recorded Concern Status LastModified by Organization Details LastModified Time None Recorded Advance Directives Directive None Recorded Payers Encounter Date Sequence Insurance Name Policy Number Policy Carmona Covered Member ID Carmona Member ID Guarantor Name 03/01/2023 1 [employer] (MEDICARE REPLACEMENT PPO) [id number] Aly Cervantes [id number] Aly Cervantes 07/03/2023 1 [employer] (MEDICARE REPLACEMENT PPO) [id number] Aly Cervantes [id number] Aly Cervantes 10/02/2023 1 [employer] (MEDICARE REPLACEMENT PPO) [id number] Aly Cervantes [id number] Aly Cervantes 01/01/2024 1 [employer] (MEDICARE REPLACEMENT PPO) [id number] Aly Cervantes [id number] Aly Cervantes
== END 2024-12-30 09:39 | disposition home or self-care (01) ==
PROVIDERS: PCP Family Medicine; Visit Provider Urology
DX: N20.0 Calculus of kidney (principal)
CPT/HCPCS: 74018